=== PATIENT | female | born 1950 | race Caucasian/White ===

== ENCOUNTER 2017-07-14 10:02 | Inpatient (IN) | payer MEDICARE ==
[2017-07-14] MEDS ORDERED: NORMAL SALINE 1000 ML 1,000 ML IV ONE ×2 (10:23→13:33)
--- NOTE | 2017-07-14 10:25 | ER Document Report ---
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 She thinks she is anemic again. According to EMS, her house is in disarray and looks like a hoarder's house. She says that she is unable to get around her house due to her chronic leg wounds. She noticed some increased drainage from the leg wounds. Patient denies fevers, increased drainage from her ear wound, nausea, vomiting, abdominal pain, chest pain, shortness of breath, urinary symptoms, GI bleeding or hematemesis. TRAVEL OUTSIDE OF THE [place] IN LAST 30 DAYS: No - Related Data Allergies/Adverse Reactions: No Known Allergies Allergy (Verified 07/14/17 11:41) Past Medical History - General Information source: Patient - Social History Smoking Status: Unknown if Ever Smoked Family History: Hypertension - Past Medical History Cardiac Medical History: Reports: Hx Hypercholesterolemia, Hx Hypertension Past Surgical History: Reports: Hx Thyroid Surgery - Immunizations Hx Diphtheria, Pertussis, Tetanus Vaccination: Yes Review of Systems - Review of Systems Notes: REVIEW OF SYSTEMS: CONSTITUTIONAL: -fevers, -chills EENT: -eye pain, -difficulty swallowing, -nasal congestion CARDIOVASCULAR:-chest pain, -syncope. RESPIRATORY: -cough, -SOB GASTROINTESTINAL: -abdominal pain, - nausea, -vomiting, -diarrhea GENITOURINARY: -dysuria, -hematuria MUSCULOSKELETAL: -back pain, -neck pain SKIN: +B/L leg ulcers, +chronic left ear wound HEMATOLOGIC: -easy bruising or bleeding. LYMPHATIC: -swollen, enlarged glands. NEUROLOGICAL: -altered mental status or loss of consciousness, -headache, - neurologic symptoms PSYCHIATRIC: -anxiety, -depression. ALL OTHER SYSTEMS REVIEWED AND NEGATIVE. Physical Exam - Vital signs Vitals: Temp Pulse Resp BP Pulse Ox 98.8 F 130 H 20 147/59 H 100 07/14/17 10:17 07/14/17 10:17 07/14/17 10:17 07/14/17 10:07/14/17 10:17 - Notes Notes: PHYSICAL EXAMINATION: GENERAL: No acute distress. Unkempt. EYES: Pupils equal round and reactive to light, extraocular movements intact, sclera anicteric, conjunctiva are normal. ENT: nares patent, oropharynx clear without exudates. Moist mucous membranes. Chronic left ear mass that appears fungating with a malodorous smell. NECK: Normal range of motion, supple without lymphadenopathy LUNGS: Breath sounds clear to auscultation bilaterally and equal. No wheezes rales or rhonchi. HEART: Tachycardia. ABDOMEN: Soft, nontender, normoactive bowel sounds. No guarding, no rebound. No masses appreciated. EXTREMITIES: Chronic wounds over bilateral lower legs with malodorous discharge from the wounds. NEUROLOGICAL: Cranial nerves grossly intact. Normal speech, normal gait. Normal sensory and motor exams. PSYCH: Normal mood, normal affect. Course - Re-evaluation Re-evalutation: Patient is anemic, tachycardic and tachypneic. She has known chronic anemia from iron deficiency and has no evidence of GI bleeding at this time. With 2 SIRS criteria and chronic leg wounds and chronic left war fungating mass that she has seen multiple specialists for, will begin broad-spectrum antibiotics and provide IV fluids. Cultures sent. Patient's blood pressure has been remaining normal and lactate is only 2.0. Her Hgb is 7.1 and she reamins tachycardic with generalized weakness. 1 unit of PRBCs was transfused due to symphtomatic anemia. Case management is involved in the case due to unsafe living conditions, according to EMS. Pt requires inpatient admission for further evaluation and treatment of her symptomatic anemia, sepsis and disposition for a safe living condition. 07/14/17 14:[address] Olmedo (Hospitalist) and she has accepted patient to Tele as Inpatient for further evaluation and treatment. Pt comfortable with plan. - Vital Signs Vital signs: Temp Pulse Resp BP Pulse Ox 98.8 F 130 H 22 H 122/54 L 98 07/14/17 10:17 07/14/17 10:17 07/14/17 13:01 07/14/17 13:01 07/14/17 13:01 - Laboratory Result Diagrams: 07/14/17 11:00 07/14/17 13:18 Laboratory results interpreted by me: 07/14/17 07/14/17 07/14/17 11:00 11:00 13:18 RBC 2.88 L Hgb 7.1 L Hct 21.5 L MCV 75 L MCH 24.6 L RDW 19.4 H Plt Count 469 H Seg Neutrophils % 88.5 H Lymphocytes % 6.6 L Absolute Neutrophils 8.9 H PT 15.8 H APTT 39.5 H VBG pH VBG pCO2 Potassium Carbon Dioxide Calcium Direct Bilirubin NT-Pro-B Natriuret Pep 1480 H Total Protein Albumin Crossmatch 07/14/17 07/14/17 07/14/17 13:18 13:18 13:18 RBC Hgb Hct MCV MCH RDW Plt Count Seg Neutrophils % Lymphocytes % Absolute Neutrophils PT APTT VBG pH 7.48 H VBG pCO2 30.1 L Potassium 3.4 L Carbon Dioxide 21 L Calcium 5.3 L* Direct Bilirubin 0.5 H NT-Pro-B Natriuret Pep Total Protein 5.8 L Albumin 2.6 L Crossmatch See Detail - Diagnostic Test Radiology reviewed: Image reviewed, Reports reviewed Radiology results interpreted by me: CXR: NAD - EKG Interpretation by Me EKG shows normal: Sinus rhythm, [place], Intervals, QRS Complexes, ST-T Waves Rate: Tachycardia Discharge - Discharge Clinical Impression: Symptomatic anemia, Chronic skin ulcer of lower leg Sepsis Qualifiers: Sepsis type: sepsis due to unspecified organism Qualified Code(s): A41.9 - Sepsis, unspecified organism Ear mass Qualifiers: Laterality: left Qualified Code(s): H93.8X2 - Other specified disorders of left ear Condition: Stable Disposition: ADMITTED INPATIENT Admitting Provider: Hospitalist - [facility] Admitted: Telemetry Referrals: ANETA BLAKE MD [Primary Care Provider] - Follow up as needed
--- NOTE | 2017-07-14 11:10 | RADIOLOGY REPORT (SQ) ---
EXAM DESCRIPTION: CHEST SINGLE VIEW COMPLETED DATE/TIME: 07/14/2017 10:59 am REASON FOR STUDY: weakness COMPARISON: 04/20/2015 EXAM PARAMETERS: NUMBER OF VIEWS: One view. TECHNIQUE: Single frontal radiographic view of the chest acquired. RADIATION DOSE: NA LIMITATIONS: None. FINDINGS: LUNGS AND PLEURA: No opacities, masses or pneumothorax. No pleural effusion. MEDIASTINUM AND HILAR STRUCTURES: No masses. Contour normal. HEART AND VASCULAR STRUCTURES: Heart normal in size. Normal vasculature. BONES: No acute findings. HARDWARE: None in the chest. OTHER: No other significant finding. IMPRESSION: NO ACUTE RADIOGRAPHIC FINDING IN THE CHEST. TECHNICAL DOCUMENTATION: JOB ID: [id number] [employer]- All Rights Reserved
[2017-07-14 11:23] LABS: ABSOLUTE BASOPHILS # (AUTO) 0.1 10^3/uL (0.0-0.2); ABSOLUTE EOSINOPHILS # (AUTO) 0.1 10^3/uL (0.0-0.6); ABSOLUTE LYMPHOCYTES (AUTO) 0.7 10^3/uL (0.5-4.7); ABSOLUTE MONOCYTES (AUTO) 0.4 10^3/uL (0.1-1.4); ABSOLUTE NEUT (AUTO) 8.9 10^3/uL (1.7-8.2); BASOPHILS % (AUTO) 0.7 % (0-2); EOSINOPHILS % (AUTO) 0.6 % (0-6); HEMATOCRIT 21.5 % (36.0-47.0); HGB HCT DIFFERENCE -0.2; LYMPHOCYTES % (AUTO) 6.6 % (13-45); MEAN CORPUSCULAR HEMOGLOBIN 24.6 pg (27.0-33.4); MEAN CORPUSCULAR HGB CONC 33.1 g/dL (32.0-36.0); MEAN CORPUSCULAR VOLUME 75 fl (80-97); MONOCYTES % (AUTO) 3.6 % (3-13); RED BLOOD COUNT 2.88 10^6/uL (3.72-5.28); RED CELL DISTRIBUTION WIDTH 19.4 % (11.5-14.0); SEGMENTED NEUTROPHILS % (AUTO) 88.5 % (42-78)
[2017-07-14 11:25] LABS: HEMOGLOBIN 7.1 g/dL (12.0-15.5)
[2017-07-14 11:30] LABS: PROTHROMBIN TIME 15.8 SEC (11.4-15.4)
[2017-07-14 11:31] LABS: PARTIAL THROMBOPLASTIN TIME 39.5 SEC (23.5-35.8)
[2017-07-14] MEDS ORDERED: NORMAL SALINE 250 ML IV PRN (11:43)
--- NOTE | 2017-07-14 13:32 | EKG REPORT ---
SEVERITY:- ABNORMAL ECG - SUPRAVENTRICULAR TACHYCARDIA ABNRM R PROG, CONSIDER ASMI OR LEAD PLACEMENT BORDERLINE PROLONGED QT INTERVAL : Confirmed by: Sylvester Lal MD 14-Jul-2017 13:32:19
[2017-07-14 13:40] LABS: VENOUS BLOOD BASE EXCESS -1.3 mmol/L; VENOUS BLOOD PCO2 30.1 mmHg (35-63); VENOUS BLOOD PH 7.48 (7.30-7.42)
[2017-07-14] MEDS ORDERED: VANCOMYCIN HCL INJ 1000 MG VIAL IV ONE (13:43)
[2017-07-14] MEDS ORDERED: PIPERACILLIN/TAZOBACTAM 3.375 GM VIAL IV ONE ×2 (13:44→14:44)
[2017-07-14 13:56] LABS: ALANINE AMINOTRANSFERASE 25 U/L (9-52); ALBUMIN 2.6 g/dL (3.5-5.0); ALKALINE PHOSPHATASE 103 U/L (38-126); ANION GAP 13 (5-19); ASPARTATE AMINO TRANSFERASE 14 U/L (14-36); BILIRUBIN,DIRECT 0.5 mg/dL (0.0-0.4); BLOOD UREA NITROGEN 12 mg/dL (7-20); CARBON DIOXIDE 21 mmol/L (22-30); CHLORIDE 104 mmol/L (98-107); CREATINE KINASE 126 U/L (30-135); CREATININE RESULT 0.79 mg/dL (0.52-1.25); GLUCOSE 90 mg/dL (75-110); LIPASE 121.9 U/L (23-300); POTASSIUM 3.4 mmol/L (3.6-5.0); TOTAL PROTEIN 5.8 g/dL (6.3-8.2)
[2017-07-14 14:09] LABS: TROPONIN I < 0.012 ng/mL
[2017-07-14 14:10] LABS: CALCIUM 5.3 mg/dL (8.4-10.2)
[2017-07-14] MEDS ORDERED: CALCIUM GLUCONATE 1000 MG/10 ML INJ IV ONE (14:13)
[2017-07-14] MEDS ORDERED: ACETAMINOPHEN 325 MG TABLET PO PRN (14:25)
[2017-07-14] MEDS ORDERED: ONDANSETRON HCL INJ/PF 4 MG/2 ML SDV IV PRN (14:25)
[2017-07-14] MEDS ORDERED: VANCOMYCIN HCL 0 MG in DEXTROSE 5%-WATER 250 ML IV NR (15:00)
[2017-07-14] MEDS ORDERED: VANCOMYCIN HCL INJ 1000 MG VIAL ONE (15:22)
[2017-07-14 15:30] LABS: AMORPHOUS SEDIMENT,URINE 4+ /HPF; APPEARANCE,URINE TURBID; BILIRUBIN,URINE NEGATIVE (NEGATIVE); GLUCOSE, URINE NEGATIVE (NEGATIVE); KETONES,URINE NEGATIVE (NEGATIVE); LEUKOCYTE ESTERASE,URINE TRACE (NEGATIVE); NITRITE,URINE NEGATIVE (NEGATIVE); PROTEIN,URINE 30 mg/dL (NEGATIVE)
[2017-07-14] MEDS ORDERED: IRON SUCROSE COMPLEX INJ/PF 100 MG/5 ML SDV IV SCH ×2 (16:00→18:00)
[2017-07-14] MEDS ORDERED: POTASSIUM CHLORIDE 10 MEQ TABLET.SA PO ONE (16:30)
[2017-07-14] MEDS ORDERED: NYSTATIN TOPICAL POWDER 15 GM TP SCH (18:00)
[2017-07-14] MEDS ORDERED: FERROUS SULFATE 325 MG TABLET PO SCH (18:00)
[2017-07-14] MEDS: CALCIUM ACETATE 667 MG CAPSULE PO SCH (18:57)
[2017-07-14] MEDS: CALCIUM CARBONATE 500 MG TABLET PO SCH (18:57)
[2017-07-14] MEDS: LANSOPRAZOLE 30 MG TAB.RAP.DR PO SCH (18:58)
[2017-07-14] MEDS: PIPERACILLIN SODIUM/TAZOBACTAM 3.375 GM in NORMAL SALINE 100 ML IV SCH (21:00)
[2017-07-14] MEDS: METOPROLOL TARTRATE 25 MG TABLET PO SCH (21:00)
[2017-07-15] MEDS: PIPERACILLIN SODIUM/TAZOBACTAM 3.375 GM in NORMAL SALINE 100 ML IV SCH ×2 (03:37→09:05)
[2017-07-15 04:52] LABS: ANION GAP 10 (5-19); BLOOD UREA NITROGEN 11 mg/dL (7-20); CARBON DIOXIDE 21 mmol/L (22-30); CHLORIDE 107 mmol/L (98-107); CREATININE RESULT 0.79 mg/dL (0.52-1.25); GLUCOSE 81 mg/dL (75-110); MAGNESIUM 1.5 mg/dL (1.6-2.3); PHOSPHORUS 3.4 mg/dL (2.5-4.5); POTASSIUM 3.3 mmol/L (3.6-5.0)
[2017-07-15 05:05] LABS: CALCIUM 5.6 mg/dL (8.4-10.2)
[2017-07-15 05:07] LABS: ABSOLUTE BASOPHILS # (AUTO) 0.1 10^3/uL (0.0-0.2); ABSOLUTE EOSINOPHILS # (AUTO) 0.2 10^3/uL (0.0-0.6); ABSOLUTE LYMPHOCYTES (AUTO) 0.7 10^3/uL (0.5-4.7); ABSOLUTE MONOCYTES (AUTO) 0.4 10^3/uL (0.1-1.4); ABSOLUTE NEUT (AUTO) 4.6 10^3/uL (1.7-8.2); EOSINOPHILS % (AUTO) 4.1 % (0-6); HEMATOCRIT 18.9 % (36.0-47.0); HGB HCT DIFFERENCE 0.3; MEAN CORPUSCULAR HEMOGLOBIN 25.4 pg (27.0-33.4); MEAN CORPUSCULAR HGB CONC 33.6 g/dL (32.0-36.0); MEAN CORPUSCULAR VOLUME 75 fl (80-97); MONOCYTES % (AUTO) 6.1 % (3-13); RED BLOOD COUNT 2.51 10^6/uL (3.72-5.28); RED CELL DISTRIBUTION WIDTH 18.7 % (11.5-14.0); SEGMENTED NEUTROPHILS % (AUTO) 76.8 % (42-78)
[2017-07-15 05:12] LABS: HEMOGLOBIN 6.4 g/dL (12.0-15.5)
[2017-07-15] MEDS ORDERED: NORMAL SALINE 250 ML IV PRN ×2 (05:14)
[2017-07-15] MEDS ORDERED: CALCIUM GLUCONATE 1000 MG/10 ML INJ IV ONE (05:14)
[2017-07-15] MEDS ORDERED: POTASSIUM CHLORIDE 10 MEQ TABLET.SA PO ONE (05:15)
[2017-07-15] MEDS ORDERED: CALCIUM GLUCONATE 1000 MG/10 ML INJ IV PRN (05:44)
[2017-07-15] MEDS ORDERED: CALCIUM GLUCONATE 2,000 MG in DEXTROSE 5%-WATER 100 ML IV ONE (05:45)
[2017-07-15] MEDS ORDERED: VANCOMYCIN HCL 1,250 MG in DEXTROSE 5%-WATER 250 ML IV SCH (06:00)
[2017-07-15] MEDS: LANSOPRAZOLE 30 MG TAB.RAP.DR PO SCH ×2 (06:04→17:43)
[2017-07-15] MEDS: MAGNESIUM SULFATE/D5W 1 GM/100 ML RTUPB IV SCH ×2 (06:12→07:29)
[2017-07-15] MEDS: CALCIUM ACETATE 667 MG CAPSULE PO SCH ×3 (09:07→17:43)
[2017-07-15] MEDS: CALCIUM CARBONATE 500 MG TABLET PO SCH ×3 (09:07→17:43)
[2017-07-15] MEDS ORDERED: LEVOTHYROXINE SODIUM 150 MCG PO SCH (10:00)
[2017-07-15] MEDS ORDERED: CALCIUM CARBONATE 500 MG TAB.CHEW PO SCH (10:00)
[2017-07-15] MEDS ORDERED: AMMONIUM LACTATE 12% LOTION 225GM BOTTLE TP ONE (11:30)
[2017-07-15] MEDS ORDERED: SILVER SULFADIAZINE 1% CREAM 25 GM TP ONE (11:30)
[2017-07-15] MEDS: CALCITRIOL 0.25 MCG CAPSULE PO SCH (12:51)
[2017-07-15] MEDS: METOPROLOL TARTRATE 25 MG TABLET PO SCH ×2 (12:52→22:32)
--- NOTE | 2017-07-15 15:36 | RADIOLOGY REPORT (SQ) ---
EXAM DESCRIPTION: PICC INSERTION; U/S GUIDE FOR VASCULAR ACCESS; FLUORO/CV PLACEMENT COMPLETED DATE/TIME: 07/15/2017 3:13 pm REASON FOR STUDY: no access; NO IV ACCESS COMPARISON: None. FLUOROSCOPY TIME: 27 seconds. 1 images saved to PACS. TECHNIQUE: Fluoroscopic and ultrasound guided PICC placement. LIMITATIONS: None. PROCEDURE: After written consent and assessment were obtained, the patient was brought into the fluo roscopy room and place supine on the table. Ultrasound was used on the patient's right arm for PICC access. The right arm was prepped and draped in a sterile fashion along with the ultrasound probe. Th e entry site was anesthetized with 1% lidocaine. A 21 gauge 7 cm needle was advanced through the skin and into the basilic vein under live ultrasound guidance. An ultrasound image was saved to PACS con firming access site. A .018 guide wire was then inserted through the needle and into the venous syst em. The needle was the removed and an 11 blade scalpel was used to make a 1cm skin incision. A 5 fr peel-away sheath was advanced over the wire and into the venous system. A measurement was then made u sing the existing wire and live fluoroscopic guidance. The wire was then removed and the trimmed. The PICC was advanced through the peel-away sheath and into the venous system. The peel-away sheath was removed and the catheter was adhered to the patients arm with a stat lock. The catheter was then aspi rated and flushed and a sterile bandage was placed over the access site. A fluoroscopic spot image w as saved to PACS confirming the catheter tip within the superior vena cava. IMPRESSION: SUCCESSFUL PLACEMENT OF A 5 FR DUAL LUMEN 44 CM PICC IN THE RIGHT BASILIC VEIN. COMMENT: Patient medication list reviewed: Yes- Quality ID# [id number]:Eligible professional attests to doc umenting in the medical record they obtained, updated, or reviewed the patient's current medications. . Quality ID 145: Final reports for procedures using fluoroscopy that document radiation exposure dipti lisy, or exposure time and number of fluorographic images (if radiation exposure indices are not avail able) Quality ID #76: The patient was prepped and draped using maximum sterile barrier technique including cap, mask, sterile gown, sterile gloves, a large sterile sheet, hand hygiene, and 2% Chlorhexidine fo r cutaneous antisepsis. When ultrasound is used, sterile ultrasound techniques are followed requiring sterile gel and sterile probes. TECHNICAL DOCUMENTATION: JOB ID: [id number] [employer]- All Rights Reserved
[2017-07-15] MEDS: CLINDAMYCIN 900 MG/D5W RTU 50 ML IV SCH ×2 (15:59→22:32)
--- NOTE | 2017-07-15 20:07 | Physician Advisory Note ---
Physician Advisor ProgressNote .: [facility], I have reviewed the medical record for this patient. Physician Advisor Statement: This patient does not meet SIRS criteria, given no leukocytosis or fever: HR & RR alone are insufficient, since they can go up with many different things. She also does not meet Sepsis-3 criteria, and does not sound, from notes so far , like she was sufficiently sick to indicate sepsis. Attending, please document, if you agree: 1. "Chronic Fe deficiency anemia due to chronic blood loss from ear mass" (or ....) 2. H&P within 24 hours of admission. Thanks! CK
[2017-07-15] MEDS: AMMONIUM LACTATE 12% LOTION 225GM BOTTLE TP SCH (22:32)
[2017-07-15] MEDS: NORMAL SALINE 10 ML SDV (SCHEDULED) IV SCH (22:32)
--- NOTE | 2017-07-15 23:05 | PDOC CONSULTATION ---
Consultation Consult Date: 07/15/17 Consult reason:: Ulcer right heel History of Present Illness Admission Date/PCP: 07/14/17 14:43 ANETA HESTERINGER History of Present Illness: SCOOBY BLAKE is a 66 year old female With ulcer along the right heel that the patient claims has been there for at least 6 weeks she has chronic swelling of both lower legs likely due to lymphedema. She had total thyroidectomy for cancer in 1962 followed by right neck dissection. She claims her calcium has been low ever since and takes calcium preparation. She also has chronic anemia She denies any significant pains along the right heel. 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 and neck dissection Social History Smoking Status: Never Smoker Frequency of Alcohol Use: None Hx Recreational Drug Use: No Hx Prescription Drug Abuse: No Family History Family History: Hypertension Parental Family History Reviewed: Yes - Mother has history of diabetes Children Family History Reviewed: No Sibling(s) Family History Reviewed.: Yes - Sister has diabetes Medication/Allergy Home Medications: Amlodipine Besylate [Norvasc 5 mg Tablet] 5 mg PO DAILY 07/14/17 Calcitriol [Rocaltrol 0.25 mcg Capsule] 0.25 mcg PO DAILY 07/14/17 Calcium Carbonate/Vitamin D3 [Calcium 500-Vit D3 200 Tablet] 3 tab PO DAILY Carvedilol [Coreg 12.5 mg Tablet] 12.5 mg PO Q12 07/14/17 Ferrous Sulfate [Feosol 325 mg Tablet] 325 mg PO BID 07/14/17 Levothyroxine Sodium [Synthroid] 137 mcg PO DAILY 07/14/17 Losartan/Hydrochlorothiazide [Losartan-Hctz 50-12.5 mg Tab] 1 tab PO DAILY 07/14 Allergies/Adverse Reactions: No Known Allergies Allergy (Verified 07/14/17 11:41) Review of Systems Constitutional: PRESENT: weakness Eyes: PRESENT: other - No visual disturbance Ears: PRESENT: other - fungating mass on the left ear Nose, Mouth, and Throat: PRESENT: other - No sore throat Cardiovascular: PRESENT: other - No chest pain Respiratory: PRESENT: other - No cough Gastrointestinal: PRESENT: other - No nausea or vomiting Genitourinary: PRESENT: other - No dysuria Musculoskeletal: PRESENT: other - Swelling of both lower legs right worse than the left Integumentary: PRESENT: wounds - Right heel ulcer, other Neurological: PRESENT: weakness Endocrine: PRESENT: other - No polyuria nor polydipsia Physical Exam Vital Signs: Temp Pulse Resp BP Pulse Ox 98.0 F 89 16 119/52 L 100 07/15/17 19:59 07/15/17 19:59 07/15/17 19:59 07/15/17 19:59 07/15/17 19:59 Intake & Output 07/14/17 07/15/17 07/16/17 06:59 06:59 06:59 Intake Total 1220 1812 Output Total 600 200 Balance 620 1612 Weight 105.6 kg General appearance: PRESENT: no acute distress Head exam: PRESENT: atraumatic Eye exam: PRESENT: conjunctiva pale Ear exam: PRESENT: other - There is a fungating mass in the left ear Mouth exam: PRESENT: moist, tongue midline Neck exam: PRESENT: other - Trachea midline. Operative scar for thyroidectomy and right neck dissection Respiratory exam: PRESENT: clear to auscultation lilia Cardiovascular exam: PRESENT: RRR Pulses: PRESENT: normal radial pulses Vascular exam: PRESENT: normal capillary refill GI/Abdominal exam: PRESENT: soft - Nontender Rectal exam: PRESENT: deferred Extremities exam: PRESENT: other - Has severe right leg lymphedema with a skin that is thickened and cracked. There is a 10 x 10 cm ulcer along the right heel with the bone of the calcaneus that is exposed. Both feet are swollen with the right worse than the left. Less lymphedema on the left lower leg Musculoskeletal exam: PRESENT: ambulatory Neurological exam: PRESENT: alert, oriented to person, oriented to place, oriented to time, oriented to situation Psychiatric exam: PRESENT: appropriate affect Skin exam: PRESENT: other - The skin on both lower legs below the knees are markedly thickened and cracked. There is a swelling of both lower legs right worse than the left. There is a 10 x 10 cm ulcer along the right heel with the bone exposed Results Laboratory Results: 07/15/17 04:06 07/15/17 04:06 07/15/17 07/15/17 07/15/17 04:06 04:06 04:06 WBC 6.0 RBC 2.51 L Hgb 6.4 L Hct 18.9 L MCV 75 L MCH 25.4 L MCHC 33.6 RDW 18.7 H Plt Count 361 Seg Neutrophils % 76.8 Lymphocytes % 12.0 L Monocytes % 6.1 Eosinophils % 4.1 Basophils % 1.0 Absolute Neutrophils 4.6 Absolute Lymphocytes 0.7 Absolute Monocytes 0.4 Absolute Eosinophils 0.2 Absolute Basophils 0.1 Sodium 138.0 Potassium 3.3 L Chloride 107 Carbon Dioxide 21 L Anion Gap 10 BUN 11 Creatinine 0.79 Est GFR ( Amer) > 60 Est GFR (Non-Af Amer) > 60 Glucose 81 Calcium 5.6 L* Ionized Calcium Jeannette 0.82 L Phosphorus 3.4 Magnesium 1.5 L Stool Occult Blood 07/15/17 09:56 WBC RBC Hgb Hct MCV MCH MCHC RDW Plt Count Seg Neutrophils % Lymphocytes % Monocytes % Eosinophils % Basophils % Absolute Neutrophils Absolute Lymphocytes Absolute Monocytes Absolute Eosinophils Absolute Basophils Sodium Potassium Chloride Carbon Dioxide Anion Gap BUN Creatinine Est GFR ( Amer) Est GFR (Non-Af Amer) Glucose Calcium Ionized Calcium Jeannette Phosphorus Magnesium Stool Occult Blood NEGATIVE Impressions: Chest X-Ray 07/14/17 10:22 IMPRESSION: NO ACUTE RADIOGRAPHIC FINDING IN THE CHEST. Guidance Fluoroscopy 07/15/17 00:00 IMPRESSION: SUCCESSFUL PLACEMENT OF A 5 FR DUAL LUMEN 44 CM PICC IN THE RIGHT BASILIC VEIN. Interventional Vascular Procedure 07/15/17 00:00 IMPRESSION: SUCCESSFUL PLACEMENT OF A 5 FR DUAL LUMEN 44 CM PICC IN THE RIGHT BASILIC VEIN. PICC Line Insertion 07/15/17 00:00 IMPRESSION: SUCCESSFUL PLACEMENT OF A 5 FR DUAL LUMEN 44 CM PICC IN THE RIGHT BASILIC VEIN. Assessment & Plan - Time Time Spent: 30 to 50 Minutes - Plan Summary Plan Summary: #1 obtain a regular x-ray of the right foot to rule out osteomyelitis of the right heel. 2. Continue with the topical ointment therapy for both lower legs with aluminum citrate 12 % 3. Obtain arterial and venous Doppler of both lower extremities 4. If there is osteomyelitis of the right calcaneus and then patient will need debridement of the bone then possible VAC therapy 5. Will need follow-up at the wound care center
[2017-07-16 00:49] LABS: ABSOLUTE BASOPHILS # (AUTO) 0.1 10^3/uL (0.0-0.2); ABSOLUTE EOSINOPHILS # (AUTO) 0.4 10^3/uL (0.0-0.6); ABSOLUTE LYMPHOCYTES (AUTO) 0.9 10^3/uL (0.5-4.7); ABSOLUTE MONOCYTES (AUTO) 0.4 10^3/uL (0.1-1.4); ABSOLUTE NEUT (AUTO) 5.3 10^3/uL (1.7-8.2); BASOPHILS % (AUTO) 1.1 % (0-2); HEMATOCRIT 23.9 % (36.0-47.0); HEMOGLOBIN 8.2 g/dL (12.0-15.5); HGB HCT DIFFERENCE 0.7; LYMPHOCYTES % (AUTO) 12.9 % (13-45); MEAN CORPUSCULAR HEMOGLOBIN 26.3 pg (27.0-33.4); MEAN CORPUSCULAR HGB CONC 34.2 g/dL (32.0-36.0); MEAN CORPUSCULAR VOLUME 77 fl (80-97); MONOCYTES % (AUTO) 6.3 % (3-13); RED BLOOD COUNT 3.12 10^6/uL (3.72-5.28); RED CELL DISTRIBUTION WIDTH 17.6 % (11.5-14.0); SEGMENTED NEUTROPHILS % (AUTO) 74.7 % (42-78); WHITE BLOOD COUNT 7.1 10^3/uL (4.0-10.5)
[2017-07-16] MEDS: LANSOPRAZOLE 30 MG TAB.RAP.DR PO SCH ×2 (06:13→16:50)
[2017-07-16] MEDS: CLINDAMYCIN 900 MG/D5W RTU 50 ML IV SCH ×3 (06:14→21:43)
--- NOTE | 2017-07-16 08:37 | PDOC PROGRESS REPORT ---
Subjective Progress Note for:: 07/16/17 Subjective:: Patient is a 66-year-old female living at home alone. Patient presenting after feeling weak patient found to be anemic. Patient does have a history of iron deficiency anemia. She also with wounds of the left ear and of the right heel. Patient states she is doing pretty good today she still feels weak. Reason For Visit: SYMPTOMATIC ANEMIA Physical Exam Vital Signs: Temperature 97.5 pulse 92 BP 115/54 RR 15 Sat 100%. General appearance: PRESENT: no acute distress, thin Head exam: PRESENT: normocephalic Eye exam: PRESENT: EOMI. ABSENT: scleral icterus Ear exam: PRESENT: other - Performed left ear with ingrown 4 x 4's Mouth exam: PRESENT: moist Neck exam: ABSENT: carotid bruit, JVD, lymphadenopathy, thyromegaly Respiratory exam: PRESENT: clear to auscultation lilia. ABSENT: rales, rhonchi, wheezes Cardiovascular exam: PRESENT: RRR. ABSENT: diastolic murmur, rubs, systolic murmur Pulses: PRESENT: normal dorsalis pedis pul Vascular exam: PRESENT: normal capillary refill GI/Abdominal exam: PRESENT: normal bowel sounds, soft. ABSENT: distended, guarding, mass, organolmegaly, rebound, tenderness Rectal exam: PRESENT: deferred Extremities exam: PRESENT: full ROM. ABSENT: calf tenderness, clubbing, pedal edema Neurological exam: PRESENT: alert, awake, oriented to person, oriented to place , oriented to time, oriented to situation, CN II-XII grossly intact. ABSENT: motor sensory deficit Psychiatric exam: PRESENT: appropriate affect, normal mood. ABSENT: homicidal ideation, suicidal ideation Skin exam: PRESENT: dry, intact, warm, other - Upper keratotic skin with ulceration especially on the right lower extremity and heel. Patient with yeast under her breasts and in the groin.. ABSENT: cyanosis, rash Results Impressions: Chest X-Ray 07/14/17 10:22 IMPRESSION: NO ACUTE RADIOGRAPHIC FINDING IN THE CHEST. Guidance Fluoroscopy 07/15/17 00:00 IMPRESSION: SUCCESSFUL PLACEMENT OF A 5 FR DUAL LUMEN 44 CM PICC IN THE RIGHT BASILIC VEIN. Interventional Vascular Procedure 07/15/17 00:00 IMPRESSION: SUCCESSFUL PLACEMENT OF A 5 FR DUAL LUMEN 44 CM PICC IN THE RIGHT BASILIC VEIN. PICC Line Insertion 07/15/17 00:00 IMPRESSION: SUCCESSFUL PLACEMENT OF A 5 FR DUAL LUMEN 44 CM PICC IN THE RIGHT BASILIC VEIN. Assessment & Plan - Diagnosis (1) Iron (Fe) deficiency anemia Qualifiers: Iron deficiency anemia type: other iron deficiency Qualified Code(s): D50.8 - Other iron deficiency anemias Is this a current diagnosis for this admission?: Yes Plan: Patient has no clear signs of bleeding. Hemoglobin 6.7. Patient transfused 2 units of packed RBCs. Will follow up hemoglobin. FOBT. (2) Tachycardia Is this a current diagnosis for this admission?: Yes Plan: Patient has history of sinus tachycardia but is possible worse due to the anemia. Tachycardia improved with beta-shaylee. (3) Chronic skin ulcer of lower leg Is this a current diagnosis for this admission?: Yes Plan: Patient has hyperkeratosis of the skin on her leg with some skin ulceration. Start patient on clindamycin and Diflucan. Ordered ammonia lactate to help remove the excess skin. (4) Ear mass Qualifiers: Laterality: left Qualified Code(s): H93.8X2 - Other specified disorders of left ear Plan: She has a left ear mass however this has not been tended to. When ENT is available will consult social found to have them evaluate the ear. Continue local wound care. (5) Laura infection of flexural skin Is this a current diagnosis for this admission?: Yes Plan: Patient on IV Diflucan. 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 Patient was given IV replacement. Receiving more IV supplementation. Patient is also on oral replacement. Please note that some of patient hypo-calcium is also due to her hypoalbuminemia. (7) Hypothyroidism Is this a current diagnosis for this admission?: Yes Plan: Continue Synthroid. (8) Hypokalemia Is this a current diagnosis for this admission?: Yes Plan: Is receiving IV replacement. From here on out will give patient oral replacements as patient has multiple infusions required. (9) Ulcer of right heel Is this a current diagnosis for this admission?: Yes Plan: She has a large right heel ulcer with maggots. Surgery consulted to evaluate the wound and give further recommendations. - Time Time Spent with patient: 15-24 minutes Anticipated discharge: SNF - Inpatient Certification Medical Necessity: Significant Comorbidiites Make Outpatient Treatment Too Risky , Need for IV Antibiotics
--- NOTE | 2017-07-16 08:38 | PDOC H&P ---
History of Present Illness Admission Date/PCP: 07/14/17 14:43 ANETA BLAKE History of Present Illness: SCOOBY BLAKE is a 66 year old female with a history of thyroid cancer status post thyroidectomy now on chronic thyroid, calcium replacement. Presenting after not feeling well for the last several days. Patient states she was weak and noted that she has a history of anemia and therefore felt that maybe her hemoglobin was low. She states that this has happened to her in the past. Patient says otherwise she has been eating well. Patient does have a growth on her left ear which she states is followed up at [facility]. When patient asked how to she care for it she says she looses soap and water and then she places gauze on it. Patient also states that her legs have been swelling and they have been painful. Patient states they are not any worse than usual. Patient does have a right heel ulcer. Patient denies using any walking device however she does lean up against the burks because she is so weak. Patient denies any fever chills at home. Patient denies any nausea vomiting or diarrhea. Patient denies any blood in her stools. There is concerned that patient home environment is not suitable. EMS apparently had very little room to enter the facility. In the ED patient was found to be tachycardic. He was found to have a hemoglobin of 7.1. Patient was transfused 1 unit. This was called to admit patient for further evaluation of her leg wounds and her anemia. 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 and neck dissection Social History Information Source: Patient Lives with: Alone Smoking Status: Never Smoker Frequency of Alcohol Use: None Hx Recreational Drug Use: No Hx Prescription Drug Abuse: No Family History Family History: DM, Other - prostate cancer Parental Family History Reviewed: No Children Family History Reviewed: No Sibling(s) Family History Reviewed.: No Medication/Allergy Home Medications: Amlodipine Besylate [Norvasc 5 mg Tablet] 5 mg PO DAILY 07/14/17 Calcitriol [Rocaltrol 0.25 mcg Capsule] 0.25 mcg PO DAILY 07/14/17 Calcium Carbonate/Vitamin D3 [Calcium 500-Vit D3 200 Tablet] 3 tab PO DAILY Carvedilol [Coreg 12.5 mg Tablet] 12.5 mg PO Q12 07/14/17 Ferrous Sulfate [Feosol 325 mg Tablet] 325 mg PO BID 07/14/17 Levothyroxine Sodium [Synthroid] 137 mcg PO DAILY 07/14/17 Losartan/Hydrochlorothiazide [Losartan-Hctz 50-12.5 mg Tab] 1 tab PO DAILY 07/14 Allergies/Adverse Reactions: No Known Allergies Allergy (Verified 07/14/17 11:41) Review of Systems Constitutional: ABSENT: chills, fever(s), headache(s), weight gain, weight loss Eyes: ABSENT: visual disturbances Ears: PRESENT: other - left ear wound. ABSENT: hearing changes Cardiovascular: PRESENT: edema, palpitations - Visit on the fifth floor no idania sedated the last was also included down in. ABSENT: chest pain, dyspnea on exertion, orthropnea Respiratory: ABSENT: cough, hemoptysis Gastrointestinal: ABSENT: abdominal pain, constipation, diarrhea, hematemesis, hematochezia, nausea, vomiting Genitourinary: ABSENT: dysuria, hematuria Musculoskeletal: ABSENT: joint swelling Integumentary: ABSENT: rash, wounds Neurological: ABSENT: abnormal gait, abnormal speech, confusion, dizziness, focal weakness, syncope Psychiatric: ABSENT: anxiety, depression, homidical ideation, suicidal ideation Endocrine: ABSENT: cold intolerance, heat intolerance, polydipsia, polyuria Hematologic/Lymphatic: ABSENT: easy bleeding, easy bruising Physical Exam Vital Signs: Temp: 984 HR 129 BP 123/40 Pulse 18 Pulse 100 General appearance: PRESENT: no acute distress, disheveled - odorous, well- developed, well-nourished Head exam: PRESENT: normocephalic Eye exam: PRESENT: EOMI. ABSENT: scleral icterus Ear exam: PRESENT: other - deformed left ear with growth and maggots in the wound Mouth exam: PRESENT: moist, tongue midline Neck exam: ABSENT: carotid bruit, JVD, lymphadenopathy, thyromegaly Respiratory exam: PRESENT: clear to auscultation lilia. ABSENT: rales, rhonchi, wheezes Cardiovascular exam: PRESENT: RRR. ABSENT: diastolic murmur, rubs, systolic murmur Pulses: PRESENT: normal dorsalis pedis pul Vascular exam: PRESENT: normal capillary refill GI/Abdominal exam: PRESENT: normal bowel sounds, soft. ABSENT: distended, guarding, mass, organolmegaly, rebound, tenderness Rectal exam: PRESENT: deferred Extremities exam: PRESENT: full ROM. ABSENT: calf tenderness, clubbing, pedal edema Neurological exam: PRESENT: alert, awake, oriented to person, oriented to place , oriented to time, oriented to situation, CN II-XII grossly intact. ABSENT: motor sensory deficit Psychiatric exam: PRESENT: appropriate affect, normal mood. ABSENT: homicidal ideation, suicidal ideation Skin exam: PRESENT: dry, warm, other - hyperkaratosis of the skin on both left with large right heel wound with maggots.. ABSENT: cyanosis, rash Results Laboratory Results: 07/16/17 00:30 07/15/17 04:06 07/15/17 07/16/17 09:56 00:30 WBC 7.1 RBC 3.12 L Hgb 8.2 L Hct 23.9 L MCV 77 L MCH 26.3 L MCHC 34.2 RDW 17.6 H Plt Count 344 Seg Neutrophils % 74.7 Lymphocytes % 12.9 L Monocytes % 6.3 Eosinophils % 5.0 Basophils % 1.1 Absolute Neutrophils 5.3 Absolute Lymphocytes 0.9 Absolute Monocytes 0.4 Absolute Eosinophils 0.4 Absolute Basophils 0.1 Stool Occult Blood NEGATIVE Impressions: Chest X-Ray 07/14/17 10:22 IMPRESSION: NO ACUTE RADIOGRAPHIC FINDING IN THE CHEST. Guidance Fluoroscopy 07/15/17 00:00 IMPRESSION: SUCCESSFUL PLACEMENT OF A 5 FR DUAL LUMEN 44 CM PICC IN THE RIGHT BASILIC VEIN. Interventional Vascular Procedure 07/15/17 00:00 IMPRESSION: SUCCESSFUL PLACEMENT OF A 5 FR DUAL LUMEN 44 CM PICC IN THE RIGHT BASILIC VEIN. PICC Line Insertion 07/15/17 00:00 IMPRESSION: SUCCESSFUL PLACEMENT OF A 5 FR DUAL LUMEN 44 CM PICC IN THE RIGHT BASILIC VEIN. Assessment & Plan - Diagnosis (1) Iron (Fe) deficiency anemia Qualifiers: Iron deficiency anemia type: other iron deficiency Qualified Code(s): D50.8 - Other iron deficiency anemias Is this a current diagnosis for this admission?: Yes Plan: Patient has no clear signs of bleeding. Patient transfused 1 units of PRBC but may need more. Will repeat CBC in the morning. Will start patient on iron supplement. (2) Tachycardia Is this a current diagnosis for this admission?: Yes Plan: Patient has history of sinus tachycardia but is possible worse due to the anemia. Will transfuse patient and restart patient on beta shaylee. (3) Chronic skin ulcer of lower leg Is this a current diagnosis for this admission?: Yes Plan: Patient has hyperkeratosis of the skin on her leg with some skin ulceration. Patient also has a right heel foot wound that patient need surgical attention. Patient was given vancomycin and Zosyn in the ED. Will continue with that for now. (4) Ear mass Qualifiers: Laterality: left Qualified Code(s): H93.8X2 - Other specified disorders of left ear Plan: She has a left ear mass however this has not been tended to. When ENT is available will consult social found to have them evaluate the ear. Attempt to clean the ear and apply dressings in the meanwhile. (5) Laura infection of flexural skin Is this a current diagnosis for this admission?: Yes Plan: Patient normally applies nystatin powder. The patient may require Diflucan as her skin folds are extensively affected. 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 Patient was given IV replacement. Will follow up her calcium and ionized calcium in the a.m. (7) Hypothyroidism Is this a current diagnosis for this admission?: Yes Plan: Continue Synthroid. Will check TSH and T4 to make sure patient is receiving adequate supplement. - Time Time Spent: 30 to 50 Minutes Anticipated discharge: SNF - Inpatient Certification Medical Necessity: Significant Comorbidiites Make Outpatient Treatment Too Risky - She has extensive foot and ear wound that needs attention and may require possible surgery., Need for IV Antibiotics
[2017-07-16] MEDS: CALCIUM CARBONATE 500 MG TABLET PO SCH (08:47)
[2017-07-16] MEDS: CALCIUM ACETATE 667 MG CAPSULE PO SCH (08:47)
[2017-07-16 09:03] LABS: VITAMIN D 25-HYDROXY 20.9 ng/mL (30.0-100.0)
--- NOTE | 2017-07-16 09:17 | RADIOLOGY REPORT (SQ) ---
EXAM DESCRIPTION: FOOT RIGHT COMPLETE COMPLETED DATE/TIME: 07/16/2017 8:35 am REASON FOR STUDY: r/o OSTEOMYELITIS COMPARISON: None. NUMBER OF VIEWS: Three views. TECHNIQUE: AP, lateral and oblique radiographic images acquired of the right foot. LIMITATIONS: None. FINDINGS: MINERALIZATION: Normal. BONES: There is bony erosion and demineralization along the surface of the calcaneus deep to a soft t issue ulcer, worrisome for osteomyelitis. No acute fracture or malalignment. JOINTS: No effusions. SOFT TISSUES: Plantar calcaneal ulcer with air, about 4 cm diameter. No radiopaque foreign body. Di ffuse hyperkeratosis. OTHER: No other significant finding. IMPRESSION: Plantar calcaneal ulcer with demineralization left plantar calcaneus worrisome for osteo myelitis. TECHNICAL DOCUMENTATION: JOB ID: [id number] [employer]- All Rights Reserved
[2017-07-16] MEDS ORDERED: SILVER SULFADIAZINE 1% CREAM 25 GM TP SCH (10:00)
[2017-07-16] MEDS ORDERED: LEVOTHYROXINE SODIUM 0.15 MG TABLET PO ONE (10:30)
[2017-07-16] MEDS ORDERED: ONDANSETRON HCL INJ/PF 4 MG/2 ML SDV IV PRN (10:30)
[2017-07-16] MEDS: METOPROLOL TARTRATE 25 MG TABLET PO SCH ×2 (10:33→21:42)
[2017-07-16] MEDS: CALCITRIOL 0.25 MCG CAPSULE PO SCH (10:34)
[2017-07-16] MEDS: AMMONIUM LACTATE 12% LOTION 225GM BOTTLE TP SCH ×2 (10:34→21:42)
[2017-07-16] MEDS: SILVER SULFADIAZINE 1% CREAM 25 GM TP SCH (10:34)
[2017-07-16] MEDS: FLUCONAZOLE 200 MG/NS RTU 100 ML IV SCH (10:35)
[2017-07-16] MEDS: NORMAL SALINE 10 ML SDV (SCHEDULED) IV SCH ×2 (10:36→21:42)
[2017-07-16] MEDS ORDERED: LEVOTHYROXINE SODIUM 0.025 MG TABLET PO ONE (11:30)
[2017-07-16 11:55] LABS: ANION GAP 10 (5-19); BLOOD UREA NITROGEN 8 mg/dL (7-20); CARBON DIOXIDE 22 mmol/L (22-30); CHLORIDE 107 mmol/L (98-107); GLUCOSE 99 mg/dL (75-110); MAGNESIUM 1.9 mg/dL (1.6-2.3); SODIUM 138.8 mmol/L (137-145)
[2017-07-16 11:57] LABS: POTASSIUM 3.8 mmol/L (3.6-5.0)
[2017-07-16] MEDS ORDERED: LEVOTHYROXINE SODIUM 0.112 MG TABLET PO ONE (12:00)
[2017-07-16 12:10] LABS: CALCIUM 6.3 mg/dL (8.4-10.2)
[2017-07-16] MEDS: FERROUS SULFATE 325 MG TABLET PO SCH ×2 (12:15→16:50)
[2017-07-16 12:25] LABS: THYROID STIMULATING HORMONE 53.1 uIU/mL (0.47-4.68)
[2017-07-16 15:07] LABS: VITAMIN D 1,25 DIHYDROXY 7.9 pg/mL (19.9-79.3)
[2017-07-16] MEDS ORDERED: CALCIUM CHLORIDE 10% PF/INJ 1000 MG/10 ML SDV IV ONE (20:14)
[2017-07-16] MEDS ORDERED: DEXTROSE 50%-WATER 25 GM/50 ML DISP.SYRIN IV PRN ×2 (20:19)
[2017-07-16] MEDS ORDERED: DEXTROSE 40% GEL 15 GM TUBE PO PRN ×2 (20:19)
[2017-07-16] MEDS ORDERED: GLUCAGON,HUMAN RECOMB 1 MG INJ SUBCUT PRN (20:19)
--- NOTE | 2017-07-16 20:21 | PDOC PROGRESS REPORT ---
Subjective Progress Note for:: 07/16/17 Subjective:: Patient is a 66-year-old female living at home alone. Patient presenting after feeling weak patient found to be anemic. Patient does have a history of iron deficiency anemia. She also with wounds of the left ear and of the right heel. Patient states the weakness is going away. Patient refuses to have her left ear evaluated by ENT. Reason For Visit: SYMPTOMATIC ANEMIA Physical Exam Vital Signs: Temp Pulse Resp BP Pulse Ox 98.4 F 80 16 115/47 L 99 07/16/17 16:08 07/16/17 16:08 07/16/17 16:08 07/16/17 16:08 07/16/17 16:08 Intake & Output 07/15/17 07/16/17 07/17/17 06:59 06:59 06:59 Intake Total 1220 3962 1083 Output Total 600 700 800 Balance 620 3262 283 Weight 105.6 kg 105.6 kg General appearance: PRESENT: no acute distress, obese Head exam: PRESENT: normocephalic Eye exam: PRESENT: EOMI. ABSENT: scleral icterus Ear exam: PRESENT: other - left ear mass Mouth exam: PRESENT: moist Neck exam: ABSENT: carotid bruit, JVD, lymphadenopathy, thyromegaly Respiratory exam: PRESENT: clear to auscultation lilia. ABSENT: rales, rhonchi, wheezes Cardiovascular exam: PRESENT: RRR. ABSENT: diastolic murmur, rubs, systolic murmur Pulses: PRESENT: normal dorsalis pedis pul Vascular exam: PRESENT: normal capillary refill GI/Abdominal exam: PRESENT: normal bowel sounds, soft. ABSENT: distended, guarding, mass, organolmegaly, rebound, tenderness Rectal exam: PRESENT: deferred Extremities exam: PRESENT: full ROM. ABSENT: calf tenderness, clubbing, pedal edema Neurological exam: PRESENT: alert, awake, oriented to person, oriented to place , oriented to time, oriented to situation, CN II-XII grossly intact. ABSENT: motor sensory deficit Psychiatric exam: PRESENT: appropriate affect, normal mood. ABSENT: homicidal ideation, suicidal ideation Skin exam: PRESENT: dry, intact, warm, other - bilateral leg dressing. ABSENT: cyanosis, rash Results Laboratory Results: 07/16/17 00:30 07/16/17 10:50 07/16/17 07/16/1707/16/17 00:30 10:50 10:50 WBC 7.1 RBC 3.12 L Hgb 8.2 L Hct 23.9 L MCV 77 L MCH 26.3 L MCHC 34.2 RDW 17.6 H Plt Count 344 Seg Neutrophils % 74.7 Lymphocytes % 12.9 L Monocytes % 6.3 Eosinophils % 5.0 Basophils % 1.1 Absolute Neutrophils 5.3 Absolute Lymphocytes 0.9 Absolute Monocytes 0.4 Absolute Eosinophils 0.4 Absolute Basophils 0.1 Sodium 138.8 Potassium 3.8 Chloride 107 Carbon Dioxide 22 Anion Gap 10 BUN 8 Creatinine 0.80 Est GFR ( Amer) > 60 Est GFR (Non-Af Amer) > 60 Glucose 99 Calcium 6.3 L* Magnesium 1.9 TSH 53.10 H Free T4 0.51 L Impressions: Chest X-Ray 07/14/17 10:22 IMPRESSION: NO ACUTE RADIOGRAPHIC FINDING IN THE CHEST. Foot X-Ray 07/15/17 00:00 IMPRESSION: Plantar calcaneal ulcer with demineralization left plantar calcaneus worrisome for osteomyelitis. Guidance Fluoroscopy 07/15/17 00:00 IMPRESSION: SUCCESSFUL PLACEMENT OF A 5 FR DUAL LUMEN 44 CM PICC IN THE RIGHT BASILIC VEIN. Interventional Vascular Procedure 07/15/17 00:00 IMPRESSION: SUCCESSFUL PLACEMENT OF A 5 FR DUAL LUMEN 44 CM PICC IN THE RIGHT BASILIC VEIN. PICC Line Insertion 07/15/17 00:00 IMPRESSION: SUCCESSFUL PLACEMENT OF A 5 FR DUAL LUMEN 44 CM PICC IN THE RIGHT BASILIC VEIN. Assessment & Plan - Diagnosis (1) Iron (Fe) deficiency anemia Qualifiers: Iron deficiency anemia type: other iron deficiency Qualified Code(s): D50.8 - Other iron deficiency anemias Is this a current diagnosis for this admission?: Yes Plan: Patient has no clear signs of bleeding. Patient tranfused at total of 3 units of PRCs. Hemoglobin stable. FOBT negative. (2) Tachycardia Is this a current diagnosis for this admission?: Yes Plan: Resolved. (3) Chronic skin ulcer of lower leg Is this a current diagnosis for this admission?: Yes Plan: Patient has hyperkeratosis of the skin on her leg with some skin ulceration. Patient also has a right heel foot wound that patient need surgical attention. Patient now on clindamycin and diflucan. Patient legs being dressing with ammonia lactate twice a day. (4) Ear mass Qualifiers: Laterality: left Qualified Code(s): H93.8X2 - Other specified disorders of left ear Plan: She has a left ear mass however this has not been tended to. ENT would like to evaluate patient and debride the area in the OR; however patient is currently refusing any further treatment to that area. (5) Laura infection of flexural skin Is this a current diagnosis for this admission?: Yes Plan: Patient currently on IV diflucan. Continue to keep skin clean and dry. 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 Patient was given IV replacement. Calcium improved but still requires replacement. Patient on oral replacement. Will give more IV calcium. (7) Hypothyroidism Is this a current diagnosis for this admission?: Yes Plan: Continue Synthroid. Patient T4 is low despite being on replacement. May have to adjust patient dose. (8) Hypokalemia Is this a current diagnosis for this admission?: Yes (9) Ulcer of right heel Is this a current diagnosis for this admission?: Yes Plan: Patient XR is consistent with osteo. Will consult ortho for further evaluation. (10) Vitamin D deficiency Is this a current diagnosis for this admission?: Yes Plan: Continue supplimentation. - Time Time Spent with patient: Less than 15 minutes Anticipated discharge: SNF - Inpatient Certification Medical Necessity: Significant Comorbidiites Make Outpatient Treatment Too Risky - Patient home situation will need to be evaluated prior to discharge., Need for IV Antibiotics, Need for Surgery
[2017-07-16] MEDS ORDERED: CALCIUM GLUCONATE 1000 MG/10 ML INJ IV ONE (22:00)
[2017-07-16] MEDS ORDERED: CALCIUM GLUCONATE 1,000 MG in DEXTROSE 5%-WATER 50 ML IV ONE (22:00)
--- NOTE | 2017-07-17 02:41 | PDOC PROGRESS REPORT ---
Subjective Progress Note for:: 07/16/17 Subjective:: mild pains right foot Reason For Visit: SYMPTOMATIC ANEMIA Physical Exam Vital Signs: Temp Pulse Resp BP Pulse Ox 98.4 F 82 16 115/47 L 99 07/16/17 16:08 07/16/17 19:00 07/16/17 16:08 07/16/17 16:08 07/16/17 16:08 Intake & Output 07/15/17 07/16/17 07/17/17 06:59 06:59 06:59 Intake Total 1220 3962 1323 Output Total 085 549 4174 Balance 620 3262 223 Weight 105.6 kg 105.6 kg General appearance: PRESENT: no acute distress Exam: right foot still with a large ulcer on heel side with calcaneal bone exposed. XRay right foot compatible with osteomyelitis. Patient hesitant to have something done on right foot. Suggested consulting Ortho for mx of osteomyelitis right calcaneal bone. Results Laboratory Results: 07/16/17 00:30 07/16/17 10:50 07/16/17 07/16/17 10:50 10:50 Sodium 138.8 Potassium 3.8 Chloride 107 Carbon Dioxide 22 Anion Gap 10 BUN 8 Creatinine 0.80 Est GFR ( Amer) > 60 Est GFR (Non-Af Amer) > 60 Glucose 99 Calcium 6.3 L* Magnesium 1.9 TSH 53.10 H Free T4 0.51 L Impressions: Chest X-Ray 07/14/17 10:22 IMPRESSION: NO ACUTE RADIOGRAPHIC FINDING IN THE CHEST. Foot X-Ray 07/15/17 00:00 IMPRESSION: Plantar calcaneal ulcer with demineralization left plantar calcaneus worrisome for osteomyelitis. Guidance Fluoroscopy 07/15/17 00:00 IMPRESSION: SUCCESSFUL PLACEMENT OF A 5 FR DUAL LUMEN 44 CM PICC IN THE RIGHT BASILIC VEIN. Interventional Vascular Procedure 07/15/17 00:00 IMPRESSION: SUCCESSFUL PLACEMENT OF A 5 FR DUAL LUMEN 44 CM PICC IN THE RIGHT BASILIC VEIN. PICC Line Insertion 07/15/17 00:00
[2017-07-17] MEDS: CLINDAMYCIN 900 MG/D5W RTU 50 ML IV SCH ×3 (05:26→22:56)
[2017-07-17] MEDS: LEVOTHYROXINE SODIUM 0.112 MG TABLET PO SCH (05:26)
[2017-07-17] MEDS: LEVOTHYROXINE SODIUM 0.025 MG TABLET PO SCH (05:27)
[2017-07-17] MEDS: LANSOPRAZOLE 30 MG TAB.RAP.DR PO SCH ×2 (05:27→16:22)
[2017-07-17] MEDS ORDERED: LEVOTHYROXINE SODIUM 0.15 MG TABLET PO SCH ×2 (06:00)
[2017-07-17 06:23] LABS: ABSOLUTE BASOPHILS # (AUTO) 0.1 10^3/uL (0.0-0.2); ABSOLUTE EOSINOPHILS # (AUTO) 0.4 10^3/uL (0.0-0.6); ABSOLUTE MONOCYTES (AUTO) 0.4 10^3/uL (0.1-1.4); ABSOLUTE NEUT (AUTO) 3.6 10^3/uL (1.7-8.2); BASOPHILS % (AUTO) 1.2 % (0-2); EOSINOPHILS % (AUTO) 7.8 % (0-6); HEMATOCRIT 25.3 % (36.0-47.0); HEMOGLOBIN 8.4 g/dL (12.0-15.5); HGB HCT DIFFERENCE -0.1; LYMPHOCYTES % (AUTO) 18.8 % (13-45); MEAN CORPUSCULAR HEMOGLOBIN 25.6 pg (27.0-33.4); MEAN CORPUSCULAR HGB CONC 33.2 g/dL (32.0-36.0); MEAN CORPUSCULAR VOLUME 77 fl (80-97); MONOCYTES % (AUTO) 6.4 % (3-13); RED BLOOD COUNT 3.27 10^6/uL (3.72-5.28); RED CELL DISTRIBUTION WIDTH 18.3 % (11.5-14.0); SEGMENTED NEUTROPHILS % (AUTO) 65.8 % (42-78); WHITE BLOOD COUNT 5.5 10^3/uL (4.0-10.5)
[2017-07-17 07:32] LABS: ANION GAP 10 (5-19); BLOOD UREA NITROGEN 11 mg/dL (7-20); CARBON DIOXIDE 24 mmol/L (22-30); CHLORIDE 106 mmol/L (98-107); CREATININE RESULT 1.05 mg/dL (0.52-1.25); GLUCOSE 99 mg/dL (75-110); POTASSIUM 4.4 mmol/L (3.6-5.0); SODIUM 139.6 mmol/L (137-145)
[2017-07-17 07:46] LABS: CALCIUM 6.4 mg/dL (8.4-10.2)
[2017-07-17] MEDS: FERROUS SULFATE 325 MG TABLET PO SCH ×3 (08:48→16:22)
[2017-07-17] MEDS ORDERED: CALCIUM GLUCONATE 1000 MG/10 ML INJ IV ONE (09:00)
[2017-07-17] MEDS: NORMAL SALINE 10 ML SDV (SCHEDULED) IV SCH ×2 (09:57→22:56)
[2017-07-17] MEDS: FLUCONAZOLE 200 MG/NS RTU 100 ML IV SCH (09:58)
[2017-07-17] MEDS: CALCITRIOL 0.25 MCG CAPSULE PO SCH (09:58)
[2017-07-17] MEDS: CHOLECALCIFEROL (D3) 1,000 UNIT TABLET PO SCH (09:59)
[2017-07-17] MEDS: METOPROLOL TARTRATE 25 MG TABLET PO SCH ×2 (09:59→22:56)
[2017-07-17] MEDS ORDERED: VITAMIN D3 PO SCH (10:00)
[2017-07-17] MEDS ORDERED: CALCIUM CARBONATE PO SCH (10:00)
[2017-07-17] MEDS ORDERED: (PENDING PHARMACY ID) (Levothyroxine Sodium [Synthroid] 137 MCG) PO SCH (10:00)
[2017-07-17] MEDS ORDERED: [UNRECOGNIZED DRUG - OTHER] PO SCH (10:00)
[2017-07-17] MEDS: AMMONIUM LACTATE 12% LOTION 225GM BOTTLE TP SCH ×2 (10:07→22:56)
[2017-07-17] MEDS: SILVER SULFADIAZINE 1% CREAM 25 GM TP SCH (10:08)
[2017-07-17] MEDS: NORMAL SALINE 10 ML SDV (AFTER EACH USE) IV PRN ×2 (11:18→17:21)
--- NOTE | 2017-07-17 12:06 | PDOC PROGRESS REPORT ---
Subjective Progress Note for:: 07/17/17 Subjective:: Patient is a 66-year-old female living at home alone. Patient presenting after feeling weak patient found to be anemic. Patient does have a history of iron deficiency anemia. Patient feeling better. She states everyone is nice. Patient know that she may need surgery on her feet. Reason For Visit: SYMPTOMATIC ANEMIA Physical Exam Vital Signs: Temp Pulse Resp BP Pulse Ox 97.9 F 85 20 128/57 H 100 07/17/17 07:58 07/17/17 07:58 07/17/17 07:58 07/17/17 07:58 07/17/17 07:58 Intake & Output 07/16/17 07/17/17 07/18/17 06:59 06:59 06:59 Intake Total 3962 1953 Output Total 700 1600 Balance 3262 353 Weight 105.6 kg 105.6 kg General appearance: PRESENT: no acute distress, disheveled Head exam: PRESENT: atraumatic, normocephalic Eye exam: ABSENT: scleral icterus Ear exam: PRESENT: other - growth on left ear Mouth exam: PRESENT: moist Neck exam: ABSENT: carotid bruit, JVD, lymphadenopathy, thyromegaly Respiratory exam: PRESENT: clear to auscultation lilia. ABSENT: rales, rhonchi, wheezes Cardiovascular exam: PRESENT: RRR. ABSENT: diastolic murmur, rubs, systolic murmur GI/Abdominal exam: PRESENT: normal bowel sounds, soft. ABSENT: distended, guarding, mass, organolmegaly, rebound, tenderness Rectal exam: PRESENT: deferred Extremities exam: PRESENT: full ROM. ABSENT: calf tenderness, clubbing, pedal edema Neurological exam: PRESENT: alert, awake, oriented to person, oriented to place , oriented to time, oriented to situation, CN II-XII grossly intact. ABSENT: motor sensory deficit Psychiatric exam: PRESENT: appropriate affect, normal mood. ABSENT: homicidal ideation, suicidal ideation Skin exam: PRESENT: dry, intact, warm, other - hyperkaratotic skin on legs although better large ulcer on right heel with odor. ABSENT: cyanosis, rash Results Laboratory Results: 07/17/17 05:35 07/17/17 05:35 07/16/17 07/16/17 07/17/17 10:50 10:50 05:35 WBC 5.5 RBC 3.27 L Hgb 8.4 L Hct 25.3 L MCV 77 L MCH 25.6 L MCHC 33.2 RDW 18.3 H Plt Count 342 Seg Neutrophils % 65.8 Lymphocytes % 18.8 Monocytes % 6.4 Eosinophils % 7.8 H Basophils % 1.2 Absolute Neutrophils 3.6 Absolute Lymphocytes 1.0 Absolute Monocytes 0.4 Absolute Eosinophils 0.4 Absolute Basophils 0.1 Sodium 138.8 Potassium 3.8 Chloride 107 Carbon Dioxide 22 Anion Gap 10 BUN 8 Creatinine 0.80 Est GFR ( Amer) > 60 Est GFR (Non-Af Amer) > 60 Glucose 99 Calcium 6.3 L* Magnesium 1.9 TSH 53.10 H Free T4 0.51 L 07/17/17 05:35 WBC RBC Hgb Hct MCV MCH MCHC RDW Plt Count Seg Neutrophils % Lymphocytes % Monocytes % Eosinophils % Basophils % Absolute Neutrophils Absolute Lymphocytes Absolute Monocytes Absolute Eosinophils Absolute Basophils Sodium 139.6 Potassium 4.4 Chloride 106 Carbon Dioxide 24 Anion Gap 10 BUN 11 Creatinine 1.05 Est GFR ( Amer) > 60 Est GFR (Non-Af Amer) 52 L Glucose 99 Calcium 6.4 L* Magnesium TSH Free T4 Impressions: Chest X-Ray 07/14/17 10:22 IMPRESSION: NO ACUTE RADIOGRAPHIC FINDING IN THE CHEST. Foot X-Ray 07/15/17 00:00 IMPRESSION: Plantar calcaneal ulcer with demineralization left plantar calcaneus worrisome for osteomyelitis. Guidance Fluoroscopy 07/15/17 00:00 IMPRESSION: SUCCESSFUL PLACEMENT OF A 5 FR DUAL LUMEN 44 CM PICC IN THE RIGHT BASILIC VEIN. Interventional Vascular Procedure 07/15/17 00:00 IMPRESSION: SUCCESSFUL PLACEMENT OF A 5 FR DUAL LUMEN 44 CM PICC IN THE RIGHT BASILIC VEIN. PICC Line Insertion 07/15/17 00:00 IMPRESSION: SUCCESSFUL PLACEMENT OF A 5 FR DUAL LUMEN 44 CM PICC IN THE RIGHT BASILIC VEIN. Assessment & Plan - Diagnosis (1) Iron (Fe) deficiency anemia Qualifiers: Iron deficiency anemia type: other iron deficiency Qualified Code(s): D50.8 - Other iron deficiency anemias Is this a current diagnosis for this admission?: Yes Plan: Patient has no clear signs of bleeding. Patient tranfused at total of 3 units of PRCs. Hemoglobin stable. FOBT negative. Patient currently on oral iron. (2) Tachycardia Is this a current diagnosis for this admission?: Yes Plan: Resolved. Continue metoprolol. (3) Chronic skin ulcer of lower leg Is this a current diagnosis for this admission?: Yes Plan: Patient has hyperkeratosis of the skin on her leg with some skin ulceration. Patient now on clindamycin and diflucan. Patient legs being dressing with ammonia lactate twice a day. The legs are looking better. (4) Ear mass Qualifiers: Laterality: left Qualified Code(s): H93.8X2 - Other specified disorders of left ear Plan: She has a left ear mass however this has not been tended to. ENT would like to evaluate patient and debride the area in the OR; however patient is currently refusing any further treatment to that area. (5) Laura infection of flexural skin Is this a current diagnosis for this admission?: Yes Plan: Patient currently on IV diflucan. Continue to keep skin clean and dry. 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 Patient was given IV replacement. Calcium improved but still requires replacement. Patient on oral replacement. Will give more IV calcium. Corrected calcium in 7.5. Will follow up. (7) Hypothyroidism Is this a current diagnosis for this admission?: Yes Plan: Continue Synthroid. Patient T4 is low despite being on replacement. May have to adjust patient dose. (8) Hypokalemia Is this a current diagnosis for this admission?: Yes Plan: Resolved. (9) Ulcer of right heel Is this a current diagnosis for this admission?: Yes Plan: Patient XRay is consistent with osteo. Ortho consulted for further evaluation. 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 (10) Vitamin D deficiency Is this a current diagnosis for this admission?: Yes Plan: Continue suppliment. - Time Time Spent with patient: Less than 15 minutes Anticipated discharge: SNF - Inpatient Certification Medical Necessity: Need for Surgery - Patient home situation needs to be evaluated before discharge home. These is so self neglect. Patient may also need psychology evaluation.
--- NOTE | 2017-07-17 13:39 | PDOC PROGRESS REPORT ---
Subjective Progress Note for:: 07/17/17 Subjective:: Patient has no complaints at this time Reason For Visit: SYMPTOMATIC ANEMIA Physical Exam Vital Signs: Temp Pulse Resp BP Pulse Ox 97.8 F 84 16 126/61 H 100 07/17/17 11:39 07/17/17 11:39 07/17/17 11:39 07/17/17 11:39 07/17/17 12:00 Intake & Output 07/16/17 07/17/17 07/18/17 06:59 06:59 06:59 Intake Total 3962 1953 Output Total 700 1600 Balance 3262 353 Weight 105.6 kg 105.6 kg General appearance: PRESENT: no acute distress - 5 x 5 cm right heel decubitus ulcer, has a healthy granulation tissue base, without exudate or necrosis. Results Laboratory Results: 07/17/17 05:35 07/17/17 05:35 07/17/17 07/17/17 05:35 05:35 WBC 5.5 RBC 3.27 L Hgb 8.4 L Hct 25.3 L MCV 77 L MCH 25.6 L MCHC 33.2 RDW 18.3 H Plt Count 342 Seg Neutrophils % 65.8 Lymphocytes % 18.8 Monocytes % 6.4 Eosinophils % 7.8 H Basophils % 1.2 Absolute Neutrophils 3.6 Absolute Lymphocytes 1.0 Absolute Monocytes 0.4 Absolute Eosinophils 0.4 Absolute Basophils 0.1 Sodium 139.6 Potassium 4.4 Chloride 106 Carbon Dioxide 24 Anion Gap 10 BUN 11 Creatinine 1.05 Est GFR ( Amer) > 60 Est GFR (Non-Af Amer) 52 L Glucose 99 Calcium 6.4 L* Impressions: Chest X-Ray 07/14/17 10:22 IMPRESSION: NO ACUTE RADIOGRAPHIC FINDING IN THE CHEST. Foot X-Ray 07/15/17 00:00 IMPRESSION: Plantar calcaneal ulcer with demineralization left plantar calcaneus worrisome for osteomyelitis. Guidance Fluoroscopy 07/15/17 00:00 IMPRESSION: SUCCESSFUL PLACEMENT OF A 5 FR DUAL LUMEN 44 CM PICC IN THE RIGHT BASILIC VEIN. Interventional Vascular Procedure 07/15/17 00:00 IMPRESSION: SUCCESSFUL PLACEMENT OF A 5 FR DUAL LUMEN 44 CM PICC IN THE RIGHT BASILIC VEIN. PICC Line Insertion 07/15/17 00:00 IMPRESSION: SUCCESSFUL PLACEMENT OF A 5 FR DUAL LUMEN 44 CM PICC IN THE RIGHT BASILIC VEIN. Assessment & Plan - Diagnosis (1) Chronic skin ulcer of lower leg Is this a current diagnosis for this admission?: Yes - Plan Summary Plan Summary: Patient is scheduled to have a wound VAC placed on her right foot.
[2017-07-17] MEDS: LACTOBACILLUS ACIDOPHILUS 250 MG TAB PO SCH (17:20)
[2017-07-18] MEDS: LANSOPRAZOLE 30 MG TAB.RAP.DR PO SCH ×2 (06:43→17:30)
[2017-07-18] MEDS: LEVOTHYROXINE SODIUM 0.112 MG TABLET PO SCH (06:43)
[2017-07-18] MEDS: LEVOTHYROXINE SODIUM 0.025 MG TABLET PO SCH (06:43)
[2017-07-18] MEDS: CLINDAMYCIN 900 MG/D5W RTU 50 ML IV SCH ×3 (06:44→21:25)
[2017-07-18 07:02] LABS: ABSOLUTE EOSINOPHILS # (AUTO) 0.3 10^3/uL (0.0-0.6); ABSOLUTE LYMPHOCYTES (AUTO) 0.9 10^3/uL (0.5-4.7); ABSOLUTE MONOCYTES (AUTO) 0.3 10^3/uL (0.1-1.4); ABSOLUTE NEUT (AUTO) 3.2 10^3/uL (1.7-8.2); BASOPHILS % (AUTO) 0.7 % (0-2); EOSINOPHILS % (AUTO) 7.1 % (0-6); HEMATOCRIT 26.9 % (36.0-47.0); HEMOGLOBIN 8.8 g/dL (12.0-15.5); HGB HCT DIFFERENCE -0.5; LYMPHOCYTES % (AUTO) 18.7 % (13-45); MEAN CORPUSCULAR HEMOGLOBIN 25.5 pg (27.0-33.4); MEAN CORPUSCULAR HGB CONC 32.7 g/dL (32.0-36.0); MEAN CORPUSCULAR VOLUME 78 fl (80-97); MONOCYTES % (AUTO) 5.9 % (3-13); RED BLOOD COUNT 3.45 10^6/uL (3.72-5.28); SEGMENTED NEUTROPHILS % (AUTO) 67.6 % (42-78); WHITE BLOOD COUNT 4.8 10^3/uL (4.0-10.5)
[2017-07-18 07:19] LABS: ANION GAP 11 (5-19); BLOOD UREA NITROGEN 12 mg/dL (7-20); CARBON DIOXIDE 25 mmol/L (22-30); CHLORIDE 107 mmol/L (98-107); CREATININE RESULT 0.84 mg/dL (0.52-1.25); GLUCOSE 81 mg/dL (75-110); POTASSIUM 4.2 mmol/L (3.6-5.0)
[2017-07-18 07:43] LABS: CALCIUM 5.9 mg/dL (8.4-10.2)
[2017-07-18] MEDS: METOPROLOL TARTRATE 25 MG TABLET PO SCH ×2 (09:49→21:24)
[2017-07-18] MEDS: LACTOBACILLUS ACIDOPHILUS 250 MG TAB PO SCH ×2 (09:50→17:30)
[2017-07-18] MEDS: FERROUS SULFATE 325 MG TABLET PO SCH ×3 (09:50→17:31)
[2017-07-18] MEDS: CHOLECALCIFEROL (D3) 1,000 UNIT TABLET PO SCH (09:51)
[2017-07-18] MEDS: SILVER SULFADIAZINE 1% CREAM 25 GM TP SCH (09:53)
[2017-07-18] MEDS: AMMONIUM LACTATE 12% LOTION 225GM BOTTLE TP SCH ×2 (09:53→21:26)
[2017-07-18] MEDS: NORMAL SALINE 10 ML SDV (SCHEDULED) IV SCH ×2 (09:54→21:24)
[2017-07-18] MEDS: CALCITRIOL 0.25 MCG CAPSULE PO SCH (09:58)
[2017-07-18] MEDS: FLUCONAZOLE 200 MG/NS RTU 100 ML IV SCH (10:15)
[2017-07-18] MEDS ORDERED: CALCIUM GLUCONATE 1000 MG/10 ML INJ IV PRN (18:51)
[2017-07-18] MEDS ORDERED: CALCIUM GLUCONATE 1,000 MG in DEXTROSE 5%-WATER 50 ML IV ONE (19:00)
[2017-07-18] MEDS: NORMAL SALINE 10 ML SDV (AFTER EACH USE) IV PRN (23:06)
[2017-07-19] MEDS: LEVOTHYROXINE SODIUM 0.112 MG TABLET PO SCH (06:07)
[2017-07-19] MEDS: LANSOPRAZOLE 30 MG TAB.RAP.DR PO SCH ×2 (06:07→17:10)
[2017-07-19] MEDS: LEVOTHYROXINE SODIUM 0.025 MG TABLET PO SCH (06:07)
[2017-07-19] MEDS: CLINDAMYCIN 900 MG/D5W RTU 50 ML IV SCH ×3 (06:07→23:19)
--- NOTE | 2017-07-19 08:33 | PDOC PROGRESS REPORT ---
Subjective Progress Note for:: 07/18/17 Subjective:: Patient is a 66-year-old female living at home alone. Patient presenting after feeling weak patient found to be anemic. Patient does have a history of iron deficiency anemia. Patient states that her legs look better and she is happy that they are taking care of them. Patient is agreeable to work with PT. Patient still does not want anything done with the growth on her left ear. Reason For Visit: SYMPTOMATIC ANEMIA Physical Exam Vital Signs: Temp Pulse Resp BP Pulse Ox 97.9 F 78 16 130/56 H 99 07/19/17 03:18 07/19/17 03:18 07/19/17 03:18 07/19/17 03:18 07/19/17 03:18 Intake & Output 07/18/17 07/19/17 07/20/17 06:59 06:59 06:59 Intake Total 1346 2488 Output Total 1100 1100 Balance 246 1388 Weight 105.6 kg 105.6 kg General appearance: PRESENT: no acute distress, obese, well-nourished Eye exam: ABSENT: scleral icterus Ear exam: PRESENT: other - growth on left ear Mouth exam: PRESENT: moist Neck exam: ABSENT: carotid bruit, JVD, lymphadenopathy, thyromegaly Respiratory exam: PRESENT: clear to auscultation lilia. ABSENT: rales, rhonchi, wheezes Cardiovascular exam: PRESENT: RRR. ABSENT: diastolic murmur, rubs, systolic murmur GI/Abdominal exam: PRESENT: normal bowel sounds, soft. ABSENT: distended, guarding, mass, organolmegaly, rebound, tenderness Rectal exam: PRESENT: deferred Extremities exam: PRESENT: full ROM. ABSENT: calf tenderness, clubbing, pedal edema Neurological exam: PRESENT: alert, awake, oriented to person, oriented to place , oriented to time, oriented to situation, CN II-XII grossly intact. ABSENT: motor sensory deficit Psychiatric exam: PRESENT: appropriate affect, normal mood. ABSENT: homicidal ideation, suicidal ideation Skin exam: PRESENT: dry, intact, warm, other - right heel wound with wond vac in place. Swelling erthyema and scaling of legs improved.. ABSENT: cyanosis, rash Results Laboratory Results: 07/18/17 06:40 07/18/17 06:40 Impressions: Chest X-Ray 07/14/17 10:22 IMPRESSION: NO ACUTE RADIOGRAPHIC FINDING IN THE CHEST. Foot X-Ray 07/15/17 00:00 IMPRESSION: Plantar calcaneal ulcer with demineralization left plantar calcaneus worrisome for osteomyelitis. Guidance Fluoroscopy 07/15/17 00:00 IMPRESSION: SUCCESSFUL PLACEMENT OF A 5 FR DUAL LUMEN 44 CM PICC IN THE RIGHT BASILIC VEIN. Interventional Vascular Procedure 07/15/17 00:00 IMPRESSION: SUCCESSFUL PLACEMENT OF A 5 FR DUAL LUMEN 44 CM PICC IN THE RIGHT BASILIC VEIN. PICC Line Insertion 07/15/17 00:00 IMPRESSION: SUCCESSFUL PLACEMENT OF A 5 FR DUAL LUMEN 44 CM PICC IN THE RIGHT BASILIC VEIN. Assessment & Plan - Diagnosis (1) Iron (Fe) deficiency anemia Qualifiers: Iron deficiency anemia type: other iron deficiency Qualified Code(s): D50.8 - Other iron deficiency anemias Is this a current diagnosis for this admission?: Yes Plan: Patient has no clear signs of bleeding. Patient tranfused at total of 3 units of PRCs. Hemoglobin stable. FOBT negative. Patient currently on oral iron. Hemoglobin trending up. (2) Tachycardia Is this a current diagnosis for this admission?: Yes Plan: Possible due to anemia. Resolved. Continue metoprolol. (3) Chronic skin ulcer of lower leg Is this a current diagnosis for this admission?: Yes Plan: Patient has hyperkeratosis of the skin on her leg with some skin ulceration. Patient now on clindamycin and diflucan. Patient legs being dressing with ammonia lactate twice a day. Skin exfoliating nicely. There is healthy skin underneath. (4) Ear mass Qualifiers: Laterality: left Qualified Code(s): H93.8X2 - Other specified disorders of left ear Plan: She has a left ear mass however this has not been tended to. ENT would like to evaluate patient and debride the area in the OR; however patient is currently refusing any further treatment to that area. Patient continue to refuse. (5) Laura infection of flexural skin Is this a current diagnosis for this admission?: Yes Plan: Patient currently on IV diflucan. Continue to keep skin clean and dry. 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 Patient was given IV replacement. Calcium improved but still requires replacement. Patient on oral replacement. Corrected calcium is 7.5. Will check ionized calcium. (7) Hypothyroidism Is this a current diagnosis for this admission?: Yes Plan: Continue Synthroid. Patient T4 is low despite being on replacement. Patient dose may need to be corrected. (8) Hypokalemia Is this a current diagnosis for this admission?: Yes Plan: Resolved. (9) Ulcer of right heel Is this a current diagnosis for this admission?: Yes Plan: Patient XRay is consistent with osteo. Ortho consulted for further evaluation. Patient currently has wound vac in place. (10) Vitamin D deficiency Is this a current diagnosis for this admission?: Yes Plan: Continue replacement. - Time Time Spent with patient: Less than 15 minutes Anticipated discharge: SNF - Inpatient Certification Medical Necessity: Need for IV Antibiotics, Other - Patient requiring placement. Patient unable to care for herself.
[2017-07-19] MEDS: CALCITRIOL 0.25 MCG CAPSULE PO SCH (09:48)
[2017-07-19] MEDS: METOPROLOL TARTRATE 25 MG TABLET PO SCH ×2 (09:49→23:19)
[2017-07-19] MEDS: CHOLECALCIFEROL (D3) 1,000 UNIT TABLET PO SCH (09:50)
[2017-07-19] MEDS: LACTOBACILLUS ACIDOPHILUS 250 MG TAB PO SCH ×2 (09:50→17:10)
[2017-07-19] MEDS: FERROUS SULFATE 325 MG TABLET PO SCH ×3 (09:50→17:09)
[2017-07-19] MEDS: NORMAL SALINE 10 ML SDV (SCHEDULED) IV SCH ×2 (09:50→23:19)
[2017-07-19] MEDS: SILVER SULFADIAZINE 1% CREAM 25 GM TP SCH (09:51)
[2017-07-19] MEDS: AMMONIUM LACTATE 12% LOTION 225GM BOTTLE TP SCH ×2 (09:51→23:20)
[2017-07-19] MEDS: FLUCONAZOLE 200 MG/NS RTU 100 ML IV SCH (11:14)
[2017-07-19 11:16] LABS: ANION GAP 9 (5-19); BLOOD UREA NITROGEN 16 mg/dL (7-20); CARBON DIOXIDE 26 mmol/L (22-30); CHLORIDE 104 mmol/L (98-107); CREATININE RESULT 0.87 mg/dL (0.52-1.25); GLUCOSE 129 mg/dL (75-110); POTASSIUM 3.9 mmol/L (3.6-5.0)
[2017-07-19 11:28] LABS: CALCIUM 6.2 mg/dL (8.4-10.2)
[2017-07-19] MEDS ORDERED: CALCIUM GLUCONATE 1,000 MG in DEXTROSE 5%-WATER 50 ML IV ONE (14:44)
--- NOTE | 2017-07-19 14:52 | PDOC PROGRESS REPORT ---
Subjective Progress Note for:: 07/19/17 Subjective:: Pt states that she is doing well. Pt states that she does not want anything done to the left side of her face. Reason For Visit: SYMPTOMATIC ANEMIA Physical Exam Vital Signs: Temp Pulse Resp BP Pulse Ox 97.9 F 85 18 125/58 L 100 07/19/17 11:38 07/19/17 11:38 07/19/17 11:38 07/19/17 11:38 07/19/17 11:38 Intake & Output 07/18/17 07/19/17 07/20/17 06:59 06:59 06:59 Intake Total 1346 2488 Output Total 1100 1100 Balance 246 1388 Weight 105.6 kg 105.6 kg General appearance: PRESENT: no acute distress, well-developed, other Head exam: PRESENT: other - Left side facial fugating facial mass Eye exam: PRESENT: conjunctiva pink, EOMI, PERRLA. ABSENT: scleral icterus Ear exam: PRESENT: normal external ear exam Mouth exam: PRESENT: moist, tongue midline Neck exam: ABSENT: carotid bruit, JVD, lymphadenopathy, thyromegaly Respiratory exam: PRESENT: clear to auscultation lilia. ABSENT: rales, rhonchi, wheezes Cardiovascular exam: PRESENT: RRR. ABSENT: diastolic murmur, rubs, systolic murmur Pulses: PRESENT: normal dorsalis pedis pul Vascular exam: PRESENT: normal capillary refill GI/Abdominal exam: PRESENT: normal bowel sounds, soft. ABSENT: distended, guarding, mass, organolmegaly, rebound, tenderness Rectal exam: PRESENT: deferred Extremities exam: PRESENT: full ROM. ABSENT: calf tenderness, clubbing, pedal edema Musculoskeletal exam: PRESENT: full ROM Neurological exam: PRESENT: alert, oriented to person, oriented to place, oriented to time, oriented to situation, CN II-XII grossly intact Psychiatric exam: PRESENT: appropriate affect, normal mood. ABSENT: homicidal ideation, suicidal ideation Skin exam: PRESENT: other - Lower exts with dressing in place. Results Laboratory Results: 07/18/17 06:40 07/19/17 09:50 07/19/17 07/19/17 07/19/17 08:30 09:50 13:50 Sodium 139.0 Potassium 3.9 Chloride 104 Carbon Dioxide 26 Anion Gap 9 BUN 16 Creatinine 0.87 Est GFR ( Amer) > 60 Est GFR (Non-Af Amer) > 60 Glucose 129 H Calcium 6.2 L* Ionized Calcium Jeannette 0.89 L Magnesium 1.7 Impressions: Chest X-Ray 07/14/17 10:22 IMPRESSION: NO ACUTE RADIOGRAPHIC FINDING IN THE CHEST. Foot X-Ray 07/15/17 00:00 IMPRESSION: Plantar calcaneal ulcer with demineralization left plantar calcaneus worrisome for osteomyelitis. Guidance Fluoroscopy 07/15/17 00:00 IMPRESSION: SUCCESSFUL PLACEMENT OF A 5 FR DUAL LUMEN 44 CM PICC IN THE RIGHT BASILIC VEIN. Interventional Vascular Procedure 07/15/17 00:00 IMPRESSION: SUCCESSFUL PLACEMENT OF A 5 FR DUAL LUMEN 44 CM PICC IN THE RIGHT BASILIC VEIN. PICC Line Insertion 07/15/17 00:00 IMPRESSION: SUCCESSFUL PLACEMENT OF A 5 FR DUAL LUMEN 44 CM PICC IN THE RIGHT BASILIC VEIN. Assessment & Plan - Diagnosis (1) Anemia Qualifiers: Anemia type: iron deficiency Is this a current diagnosis for this admission?: Yes Plan: S/P 3 units of PRBC: Will continue to monitor. (2) Chronic skin ulcer of lower leg Is this a current diagnosis for this admission?: Yes Plan: Will continue antibiotics and wound care. (3) Ear mass Qualifiers: Laterality: left Qualified Code(s): H93.8X2 - Other specified disorders of left ear Is this a current diagnosis for this admission?: Yes Plan: Will continue wound care. (4) Hypokalemia Is this a current diagnosis for this admission?: Yes Plan: Resolved. (5) Symptomatic anemia Is this a current diagnosis for this admission?: Yes Plan: S/p 3 units of PRBC: Will continue to monitor. (6) Hypocalcemia Is this a current diagnosis for this admission?: Yes Plan: Will give Calcium Gluconate. Will check Calcium in am. - Time Time Spent with patient: Less than 15 minutes
[2017-07-19] MEDS ORDERED: CALCIUM GLUCONATE 1000 MG/10 ML INJ IV ONE (16:00)
--- NOTE | 2017-07-19 18:30 | PDOC PROGRESS REPORT ---
Subjective Progress Note for:: 07/19/17 Subjective:: The patient is without complaints Reason For Visit: SYMPTOMATIC ANEMIA Physical Exam Vital Signs: Temp Pulse Resp BP Pulse Ox 97.7 F 75 18 128/58 H 100 07/19/17 16:05 07/19/17 16:05 07/19/17 16:05 07/19/17 16:05 07/19/17 16:05 Intake & Output 07/18/17 07/19/17 07/20/17 06:59 06:59 06:59 Intake Total 1346 2488 1251 Output Total 1100 1100 Balance 246 1388 1251 Weight 105.6 kg 105.6 kg Extremities exam: PRESENT: other - Wound VAC is in place on the right foot. Results Laboratory Results: 07/18/17 06:40 07/19/17 09:50 07/19/17 07/19/17 07/19/17 08:30 09:50 13:50 Sodium 139.0 Potassium 3.9 Chloride 104 Carbon Dioxide 26 Anion Gap 9 BUN 16 Creatinine 0.87 Est GFR ( Amer) > 60 Est GFR (Non-Af Amer) > 60 Glucose 129 H Calcium 6.2 L* Ionized Calcium Jeannette 0.89 L Magnesium 1.7 Impressions: Chest X-Ray 07/14/17 10:22 IMPRESSION: NO ACUTE RADIOGRAPHIC FINDING IN THE CHEST. Foot X-Ray 07/15/17 00:00 IMPRESSION: Plantar calcaneal ulcer with demineralization left plantar calcaneus worrisome for osteomyelitis. Guidance Fluoroscopy 07/15/17 00:00 IMPRESSION: SUCCESSFUL PLACEMENT OF A 5 FR DUAL LUMEN 44 CM PICC IN THE RIGHT BASILIC VEIN. Interventional Vascular Procedure 07/15/17 00:00 IMPRESSION: SUCCESSFUL PLACEMENT OF A 5 FR DUAL LUMEN 44 CM PICC IN THE RIGHT BASILIC VEIN. PICC Line Insertion 07/15/17 00:00 IMPRESSION: SUCCESSFUL PLACEMENT OF A 5 FR DUAL LUMEN 44 CM PICC IN THE RIGHT BASILIC VEIN. Assessment & Plan - Diagnosis (1) Chronic skin ulcer of lower leg Is this a current diagnosis for this admission?: Yes - Plan Summary Plan Summary: Continue present wound VAC therapy, antibiotics, etc.
[2017-07-19] MEDS ORDERED: AMMONIUM LACTATE 12% LOTION 225GM BOTTLE TP SCH (22:00)
[2017-07-20] MEDS: LANSOPRAZOLE 30 MG TAB.RAP.DR PO SCH ×2 (06:54→17:12)
[2017-07-20] MEDS: LEVOTHYROXINE SODIUM 0.025 MG TABLET PO SCH (06:54)
[2017-07-20] MEDS: LEVOTHYROXINE SODIUM 0.112 MG TABLET PO SCH (06:54)
[2017-07-20] MEDS: CLINDAMYCIN 900 MG/D5W RTU 50 ML IV SCH ×3 (06:54→23:33)
[2017-07-20 07:33] LABS: ABSOLUTE EOSINOPHILS # (AUTO) 0.2 10^3/uL (0.0-0.6); ABSOLUTE LYMPHOCYTES (AUTO) 0.9 10^3/uL (0.5-4.7); ABSOLUTE MONOCYTES (AUTO) 0.3 10^3/uL (0.1-1.4); ABSOLUTE NEUT (AUTO) 2.7 10^3/uL (1.7-8.2); BASOPHILS % (AUTO) 1.1 % (0-2); EOSINOPHILS % (AUTO) 5.4 % (0-6); HEMATOCRIT 27.1 % (36.0-47.0); HEMOGLOBIN 8.9 g/dL (12.0-15.5); HGB HCT DIFFERENCE -0.4; LYMPHOCYTES % (AUTO) 21.5 % (13-45); MEAN CORPUSCULAR HGB CONC 32.8 g/dL (32.0-36.0); MEAN CORPUSCULAR VOLUME 79 fl (80-97); MONOCYTES % (AUTO) 6.2 % (3-13); RED BLOOD COUNT 3.41 10^6/uL (3.72-5.28); RED CELL DISTRIBUTION WIDTH 19.4 % (11.5-14.0); SEGMENTED NEUTROPHILS % (AUTO) 65.8 % (42-78); WHITE BLOOD COUNT 4.2 10^3/uL (4.0-10.5)
[2017-07-20 07:34] LABS: ALANINE AMINOTRANSFERASE 26 U/L (9-52); ALBUMIN 2.5 g/dL (3.5-5.0); ALKALINE PHOSPHATASE 89 U/L (38-126); ANION GAP 9 (5-19); ASPARTATE AMINO TRANSFERASE 23 U/L (14-36); BILIRUBIN,DIRECT 0.3 mg/dL (0.0-0.4); BILIRUBIN,TOTAL 0.4 mg/dL (0.2-1.3); BLOOD UREA NITROGEN 16 mg/dL (7-20); CARBON DIOXIDE 27 mmol/L (22-30); CHLORIDE 105 mmol/L (98-107); GLUCOSE 85 mg/dL (75-110); POTASSIUM 3.9 mmol/L (3.6-5.0); SODIUM 140.6 mmol/L (137-145); TOTAL PROTEIN 5.5 g/dL (6.3-8.2)
[2017-07-20 08:00] LABS: CALCIUM 6.2 mg/dL (8.4-10.2)
--- NOTE | 2017-07-20 09:53 | EKG REPORT ---
SEVERITY:- ABNORMAL ECG - SINUS RHYTHM VENTRICULAR TRIGEMINY : Confirmed by: Noreen Javier 20-Jul-2017 09:53:02
[2017-07-20] MEDS: LACTOBACILLUS ACIDOPHILUS 250 MG TAB PO SCH ×2 (12:29→17:13)
[2017-07-20] MEDS: FERROUS SULFATE 325 MG TABLET PO SCH ×3 (12:30→17:12)
[2017-07-20] MEDS: METOPROLOL TARTRATE 25 MG TABLET PO SCH ×2 (12:30→23:30)
[2017-07-20] MEDS: CHOLECALCIFEROL (D3) 1,000 UNIT TABLET PO SCH (12:30)
[2017-07-20] MEDS: CALCITRIOL 0.25 MCG CAPSULE PO SCH (12:32)
[2017-07-20] MEDS: SILVER SULFADIAZINE 1% CREAM 25 GM TP SCH (12:33)
[2017-07-20] MEDS: AMMONIUM LACTATE 12% LOTION 225GM BOTTLE TP SCH ×2 (12:33→23:39)
[2017-07-20] MEDS: FLUCONAZOLE 200 MG/NS RTU 100 ML IV SCH (12:36)
[2017-07-20] MEDS: NORMAL SALINE 10 ML SDV (SCHEDULED) IV SCH ×2 (12:36→23:32)
--- NOTE | 2017-07-20 13:28 | PDOC PROGRESS REPORT ---
Subjective Progress Note for:: 07/20/17 Reason For Visit: SYMPTOMATIC ANEMIA No complaints today. Physical Exam Vital Signs: Temp Pulse Resp BP Pulse Ox 97.5 F 82 18 136/50 H 100 07/20/17 12:00 07/20/17 12:00 07/20/17 12:00 07/20/17 12:00 07/20/17 12:00 Intake & Output 07/19/17 07/20/17 07/21/17 06:59 06:59 06:59 Intake Total 2488 3031 Output Total 1100 2350 Balance 1388 681 Weight 105.6 kg 105.6 kg General appearance: PRESENT: no acute distress Musculoskeletal exam: PRESENT: other - Right leg wound VAC removed. This leg has got chronic skin, did hair, and turgor. A lot of this was washed up today at bedside. The heel wound is granulating beautifully and is pink, healthy. Results Laboratory Results: 07/20/17 07:00 07/20/17 07:00 07/19/17 07/20/17 07/20/17 13:50 07:00 07:00 WBC 4.2 RBC 3.41 L Hgb 8.9 L Hct 27.1 L MCV 79 L MCH 26.0 L MCHC 32.8 RDW 19.4 H Plt Count 299 Seg Neutrophils % 65.8 Lymphocytes % 21.5 Monocytes % 6.2 Eosinophils % 5.4 Basophils % 1.1 Absolute Neutrophils 2.7 Absolute Lymphocytes 0.9 Absolute Monocytes 0.3 Absolute Eosinophils 0.2 Absolute Basophils 0.0 Sodium 140.6 Potassium 3.9 Chloride 105 Carbon Dioxide 27 Anion Gap 9 BUN 16 Creatinine 0.90 Est GFR ( Amer) > 60 Est GFR (Non-Af Amer) > 60 Glucose 85 Calcium 6.2 L* Ionized Calcium Jeannette 0.89 L Magnesium Total Bilirubin 0.4 AST 23 ALT 26 Alkaline Phosphatase 89 Total Protein 5.5 L Albumin 2.5 L 07/20/17 07/20/17 07:00 07:00 WBC RBC Hgb Hct MCV MCH MCHC RDW Plt Count Seg Neutrophils % Lymphocytes % Monocytes % Eosinophils % Basophils % Absolute Neutrophils Absolute Lymphocytes Absolute Monocytes Absolute Eosinophils Absolute Basophils Sodium Potassium Chloride Carbon Dioxide Anion Gap BUN Creatinine Est GFR ( Amer) Est GFR (Non-Af Amer) Glucose Calcium Ionized Calcium Jeannette 0.82 L Magnesium 1.6 Total Bilirubin AST ALT Alkaline Phosphatase Total Protein Albumin Impressions: Chest X-Ray 07/14/17 10:22 IMPRESSION: NO ACUTE RADIOGRAPHIC FINDING IN THE CHEST. Foot X-Ray 07/15/17 00:00 IMPRESSION: Plantar calcaneal ulcer with demineralization left plantar calcaneus worrisome for osteomyelitis. Guidance Fluoroscopy 07/15/17 00:00 IMPRESSION: SUCCESSFUL PLACEMENT OF A 5 FR DUAL LUMEN 44 CM PICC IN THE RIGHT BASILIC VEIN. Interventional Vascular Procedure 07/15/17 00:00 IMPRESSION: SUCCESSFUL PLACEMENT OF A 5 FR DUAL LUMEN 44 CM PICC IN THE RIGHT BASILIC VEIN. PICC Line Insertion 07/15/17 00:00 IMPRESSION: SUCCESSFUL PLACEMENT OF A 5 FR DUAL LUMEN 44 CM PICC IN THE RIGHT BASILIC VEIN. Assessment & Plan - Diagnosis (1) Chronic skin ulcer of lower leg Is this a current diagnosis for this admission?: Yes Plan: Pression: Clinically improved right heel wound, with wound VAC therapy. Chronic edema both lower extremities, with cauliflower skin and this amounts of sloughing keratin and did hair. Name: Wash leg vigorously with soapy water today Replace wound VAC: Can likely be managed on an outpatient basis in the next 48 hours.
[2017-07-20] MEDS ORDERED: CALCIUM GLUCONATE 1,000 MG in DEXTROSE 5%-WATER 50 ML IV ONE (14:36)
--- NOTE | 2017-07-20 15:03 | PDOC PROGRESS REPORT ---
Subjective Progress Note for:: 07/20/17 Subjective:: Pt states that she is doing well. Nursing states that pt continue to have wound care which is going well. Reason For Visit: SYMPTOMATIC ANEMIA Physical Exam Vital Signs: Temp Pulse Resp BP Pulse Ox 97.5 F 82 18 136/50 H 100 07/20/17 12:00 07/20/17 12:00 07/20/17 12:00 07/20/17 12:00 07/20/17 12:00 Intake & Output 07/19/17 07/20/17 07/21/17 06:59 06:59 06:59 Intake Total 2488 3031 Output Total 1100 2350 Balance 1388 681 Weight 105.6 kg 105.6 kg General appearance: PRESENT: no acute distress, well-developed, well-nourished Head exam: PRESENT: other - Pt with dressing around head left side facial mass with dressing in place. Eye exam: PRESENT: conjunctiva pink, EOMI. ABSENT: scleral icterus Ear exam: PRESENT: normal external ear exam Mouth exam: PRESENT: moist, tongue midline Neck exam: ABSENT: carotid bruit, JVD, lymphadenopathy, thyromegaly Respiratory exam: PRESENT: clear to auscultation lilia. ABSENT: rales, rhonchi, wheezes Cardiovascular exam: PRESENT: RRR. ABSENT: diastolic murmur, rubs, systolic murmur Pulses: PRESENT: normal dorsalis pedis pul GI/Abdominal exam: PRESENT: normal bowel sounds, soft. ABSENT: distended, guarding, mass, organolmegaly, rebound, tenderness Rectal exam: PRESENT: deferred Extremities exam: PRESENT: full ROM. ABSENT: calf tenderness, clubbing, pedal edema Neurological exam: PRESENT: alert, altered, oriented to person Psychiatric exam: PRESENT: flat affect. ABSENT: homicidal ideation, suicidal ideation Skin exam: PRESENT: other - bilateral lower ext wounds with dressing in place. Pt with left side facial fugating mass. Results Laboratory Results: 07/20/17 07:00 07/20/17 07:00 07/20/17 07/20/17 07/20/17 07:00 07:00 07:00 WBC 4.2 RBC 3.41 L Hgb 8.9 L Hct 27.1 L MCV 79 L MCH 26.0 L MCHC 32.8 RDW 19.4 H Plt Count 299 Seg Neutrophils % 65.8 Lymphocytes % 21.5 Monocytes % 6.2 Eosinophils % 5.4 Basophils % 1.1 Absolute Neutrophils 2.7 Absolute Lymphocytes 0.9 Absolute Monocytes 0.3 Absolute Eosinophils 0.2 Absolute Basophils 0.0 Sodium 140.6 Potassium 3.9 Chloride 105 Carbon Dioxide 27 Anion Gap 9 BUN 16 Creatinine 0.90 Est GFR ( Amer) > 60 Est GFR (Non-Af Amer) > 60 Glucose 85 Calcium 6.2 L* Ionized Calcium Jeannette 0.82 L Magnesium Total Bilirubin 0.4 AST 23 ALT 26 Alkaline Phosphatase 89 Total Protein 5.5 L Albumin 2.5 L 07/20/17 07:00 WBC RBC Hgb Hct MCV MCH MCHC RDW Plt Count Seg Neutrophils % Lymphocytes % Monocytes % Eosinophils % Basophils % Absolute Neutrophils Absolute Lymphocytes Absolute Monocytes Absolute Eosinophils Absolute Basophils Sodium Potassium Chloride Carbon Dioxide Anion Gap BUN Creatinine Est GFR ( Amer) Est GFR (Non-Af Amer) Glucose Calcium Ionized Calcium Jeannette Magnesium 1.6 Total Bilirubin AST ALT Alkaline Phosphatase Total Protein Albumin Impressions: Chest X-Ray 07/14/17 10:22 IMPRESSION: NO ACUTE RADIOGRAPHIC FINDING IN THE CHEST. Foot X-Ray 07/15/17 00:00 IMPRESSION: Plantar calcaneal ulcer with demineralization left plantar calcaneus worrisome for osteomyelitis. Guidance Fluoroscopy 07/15/17 00:00 IMPRESSION: SUCCESSFUL PLACEMENT OF A 5 FR DUAL LUMEN 44 CM PICC IN THE RIGHT BASILIC VEIN. Interventional Vascular Procedure 07/15/17 00:00 IMPRESSION: SUCCESSFUL PLACEMENT OF A 5 FR DUAL LUMEN 44 CM PICC IN THE RIGHT BASILIC VEIN. PICC Line Insertion 07/15/17 00:00 IMPRESSION: SUCCESSFUL PLACEMENT OF A 5 FR DUAL LUMEN 44 CM PICC IN THE RIGHT BASILIC VEIN. Assessment & Plan - Diagnosis (1) Anemia Qualifiers: Anemia type: iron deficiency Is this a current diagnosis for this admission?: Yes Plan: S/P 3 units of PRBC: Will continue to monitor. (2) Chronic skin ulcer of lower leg Is this a current diagnosis for this admission?: Yes Plan: Will continue antibiotics and wound care. (3) Ear mass Qualifiers: Laterality: left Qualified Code(s): H93.8X2 - Other specified disorders of left ear Is this a current diagnosis for this admission?: Yes Plan: Will continue wound care. (4) Hypokalemia Is this a current diagnosis for this admission?: Yes Plan: Resolved. (5) Symptomatic anemia Is this a current diagnosis for this admission?: Yes Plan: S/p 3 units of PRBC: Will continue to monitor. (6) Hypocalcemia Is this a current diagnosis for this admission?: Yes Plan: Will give Calcium Gluconate again today and place on PO calcium. Will check calcium and ionized calcium. (7) Vitamin D deficiency Is this a current diagnosis for this admission?: Yes Plan: Will give 50,000 units Qweekly for 6 weeks and maintenance dose. - Time Time Spent with patient: 15-24 minutes - Pt will speak to television maintenance worker about advance directives.
[2017-07-20] MEDS ORDERED: CALCIUM GLUCONATE 1000 MG/10 ML INJ IV ONE (15:30)
[2017-07-20] MEDS ORDERED: ERGOCALCIFEROL (VITAMIN D2) 50000 UNIT (1.25 MG) CAPSULE PO ONE (16:00)
[2017-07-20] MEDS: MAGNESIUM SULFATE/D5W 1 GM/100 ML RTUPB IV SCH ×2 (17:12→20:35)
[2017-07-20] MEDS: CALCIUM CARBONATE 500 MG TABLET PO SCH (17:12)
[2017-07-21] MEDS: CLINDAMYCIN 900 MG/D5W RTU 50 ML IV SCH ×3 (05:41→21:26)
[2017-07-21] MEDS: LEVOTHYROXINE SODIUM 0.112 MG TABLET PO SCH (05:41)
[2017-07-21] MEDS: LANSOPRAZOLE 30 MG TAB.RAP.DR PO SCH (05:41)
[2017-07-21] MEDS: LEVOTHYROXINE SODIUM 0.025 MG TABLET PO SCH (05:42)
[2017-07-21 06:07] LABS: ABSOLUTE EOSINOPHILS # (AUTO) 0.2 10^3/uL (0.0-0.6); ABSOLUTE LYMPHOCYTES (AUTO) 0.8 10^3/uL (0.5-4.7); ABSOLUTE MONOCYTES (AUTO) 0.3 10^3/uL (0.1-1.4); ABSOLUTE NEUT (AUTO) 2.1 10^3/uL (1.7-8.2); BASOPHILS % (AUTO) 1.1 % (0-2); HEMATOCRIT 25.1 % (36.0-47.0); HEMOGLOBIN 8.1 g/dL (12.0-15.5); HGB HCT DIFFERENCE -0.8; LYMPHOCYTES % (AUTO) 23.6 % (13-45); MEAN CORPUSCULAR HEMOGLOBIN 25.7 pg (27.0-33.4); MEAN CORPUSCULAR HGB CONC 32.3 g/dL (32.0-36.0); MEAN CORPUSCULAR VOLUME 79 fl (80-97); MONOCYTES % (AUTO) 7.2 % (3-13); RED BLOOD COUNT 3.17 10^6/uL (3.72-5.28); RED CELL DISTRIBUTION WIDTH 20.1 % (11.5-14.0); SEGMENTED NEUTROPHILS % (AUTO) 61.1 % (42-78); WHITE BLOOD COUNT 3.5 10^3/uL (4.0-10.5)
[2017-07-21 06:13] LABS: ALANINE AMINOTRANSFERASE 31 U/L (9-52); ALBUMIN 2.3 g/dL (3.5-5.0); ALKALINE PHOSPHATASE 79 U/L (38-126); ANION GAP 9 (5-19); ASPARTATE AMINO TRANSFERASE 20 U/L (14-36); BILIRUBIN,DIRECT 0.4 mg/dL (0.0-0.4); BILIRUBIN,TOTAL 0.4 mg/dL (0.2-1.3); BLOOD UREA NITROGEN 15 mg/dL (7-20); CARBON DIOXIDE 25 mmol/L (22-30); CHLORIDE 108 mmol/L (98-107); CREATININE RESULT 0.82 mg/dL (0.52-1.25); GLUCOSE 79 mg/dL (75-110); POTASSIUM 3.7 mmol/L (3.6-5.0); SODIUM 141.8 mmol/L (137-145); TOTAL PROTEIN 5.3 g/dL (6.3-8.2)
[2017-07-21 06:24] LABS: CALCIUM 5.7 mg/dL (8.4-10.2)
[2017-07-21] MEDS ORDERED: CALCIUM GLUCONATE 1000 MG/10 ML INJ IV ONE ×2 (07:00→09:15)
[2017-07-21] MEDS: FERROUS SULFATE 325 MG TABLET PO SCH ×3 (08:02→17:32)
[2017-07-21] MEDS ORDERED: CALCIUM GLUCONATE 1,000 MG in DEXTROSE 5%-WATER 50 ML IV ONE (08:34)
[2017-07-21] MEDS: NORMAL SALINE 10 ML SDV (SCHEDULED) IV SCH ×2 (09:48→21:36)
[2017-07-21] MEDS: CALCIUM CARBONATE 500 MG TABLET PO SCH ×3 (09:49→17:32)
[2017-07-21] MEDS: LACTOBACILLUS ACIDOPHILUS 250 MG TAB PO SCH ×2 (09:49→17:32)
[2017-07-21] MEDS: METOPROLOL TARTRATE 25 MG TABLET PO SCH ×2 (09:50→21:27)
[2017-07-21] MEDS: SILVER SULFADIAZINE 1% CREAM 25 GM TP SCH (09:51)
[2017-07-21] MEDS: AMMONIUM LACTATE 12% LOTION 225GM BOTTLE TP SCH ×2 (09:51→21:35)
[2017-07-21] MEDS: CALCITRIOL 0.25 MCG CAPSULE PO SCH (09:51)
[2017-07-21] MEDS: FLUCONAZOLE 200 MG/NS RTU 100 ML IV SCH (09:55)
--- NOTE | 2017-07-21 13:03 | PDOC CONSULTATION ---
Consultation Consult Date: 07/21/17 Consult reason:: Right lower extremity plantar ulcer History of Present Illness Admission Date/PCP: 07/14/17 14:43 ANETA BLAKE History of Present Illness: The patient is a 66-year-old white female who was admitted for at least in part a right plantar foot ulcer. She reports approximately a 5 week history of right foot problems and having maintained at least a household ambulator status without assist devices prior to that time. Over the last 5 weeks she has had progressive issues with the right lower extremity. She is evaluated upon admission and found to have a 10 x 10 cm calcaneal ulcer that extended down to the underlying bone. This is being treated with a wound VAC and topical dressings to the more proximal lower leg skin changes. Orthopedics is presumably content consulted consulted for management of the plantar ulcer. 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 and neck dissection Social History Information Source: Patient, [facility] Records Lives with: Alone Smoking Status: Never Smoker Frequency of Alcohol Use: None Hx Recreational Drug Use: No Hx Prescription Drug Abuse: No Family History Family History: DM, Other - prostate cancer Parental Family History Reviewed: No Children Family History Reviewed: No Sibling(s) Family History Reviewed.: No Medication/Allergy Home Medications: Amlodipine Besylate [Norvasc 5 mg Tablet] 5 mg PO DAILY 07/14/17 Calcitriol [Rocaltrol 0.25 mcg Capsule] 0.25 mcg PO DAILY 07/14/17 Calcium Carbonate/Vitamin D3 [Calcium 500-Vit D3 200 Tablet] 3 tab PO DAILY Carvedilol [Coreg 12.5 mg Tablet] 12.5 mg PO Q12 07/14/17 Ferrous Sulfate [Feosol 325 mg Tablet] 325 mg PO BID 07/14/17 Levothyroxine Sodium [Synthroid] 137 mcg PO DAILY 07/14/17 Losartan/Hydrochlorothiazide [Losartan-Hctz 50-12.5 mg Tab] 1 tab PO DAILY 07/14 Allergies/Adverse Reactions: No Known Allergies Allergy (Verified 07/14/17 11:41) Review of Systems All systems: as per [facility] Physical Exam Vital Signs: Temp Pulse Resp BP Pulse Ox 36.4 C 79 18 137/70 H 100 07/21/17 08:00 07/21/17 08:00 07/21/17 08:00 07/21/17 08:00 07/21/17 08:00 Intake & Output 07/20/17 07/21/17 07/22/17 06:59 06:59 06:59 Intake Total 3031 3847 Output Total 2350 2050 Balance 681 1797 Weight 105.6 kg 115.1 kg Physical Exam: The patient is a middle-aged white female lying in hospital bed. There is a large bandage about her head and her left ear. Lower extremities are wrapped in Kerlix beginning in the proximal calf and extending distally. There is a wound VAC applied to the plantar surface of the right calcaneus. There is brisk capillary refill to each of the digits. Motor function to the great toe flexion extension is intact. General appearance: PRESENT: no acute distress Head exam: PRESENT: normocephalic Respiratory exam: PRESENT: unlabored Cardiovascular exam: PRESENT: RRR Pulses: PRESENT: +1 pedal pulses bilateral Vascular exam: PRESENT: normal capillary refill GI/Abdominal exam: PRESENT: soft Rectal exam: PRESENT: deferred Extremities exam: PRESENT: other - Wound VAC applied to the plantar surface of the right foot. Sponge measures approximately 10 x 10 cm. There is brisk capillary refill to each of the digits. Motor function to the great toe flexion extension is intact. Neurological exam: PRESENT: alert, awake, oriented to person, oriented to place , oriented to time, oriented to situation. ABSENT: motor sensory deficit Psychiatric exam: PRESENT: appropriate affect, normal mood. ABSENT: homicidal ideation, suicidal ideation Skin exam: PRESENT: dry, intact, warm. ABSENT: cyanosis, rash Results Laboratory Results: 07/21/17 05:00 07/21/17 05:00 07/21/17 07/21/17 07/21/17 05:00 05:00 05:00 WBC 3.5 L RBC 3.17 L Hgb 8.1 L Hct 25.1 L MCV 79 L MCH 25.7 L MCHC 32.3 RDW 20.1 H Plt Count 257 Seg Neutrophils % 61.1 Lymphocytes % 23.6 Monocytes % 7.2 Eosinophils % 7.0 H Basophils % 1.1 Absolute Neutrophils 2.1 Absolute Lymphocytes 0.8 Absolute Monocytes 0.3 Absolute Eosinophils 0.2 Absolute Basophils 0.0 Sodium 141.8 Potassium 3.7 Chloride 108 H Carbon Dioxide 25 Anion Gap 9 BUN 15 Creatinine 0.82 Est GFR ( Amer) > 60 Est GFR (Non-Af Amer) > 60 Glucose 79 Calcium 5.7 L* Ionized Calcium Jeannette Magnesium 1.7 Total Bilirubin 0.4 AST 20 ALT 31 Alkaline Phosphatase 79 Total Protein 5.3 L Albumin 2.3 L 07/21/17 05:15 WBC RBC Hgb Hct MCV MCH MCHC RDW Plt Count Seg Neutrophils % Lymphocytes % Monocytes % Eosinophils % Basophils % Absolute Neutrophils Absolute Lymphocytes Absolute Monocytes Absolute Eosinophils Absolute Basophils Sodium Potassium Chloride Carbon Dioxide Anion Gap BUN Creatinine Est GFR ( Amer) Est GFR (Non-Af Amer) Glucose Calcium Ionized Calcium Jeannette 0.88 L Magnesium Total Bilirubin AST ALT Alkaline Phosphatase Total Protein Albumin Impressions: Chest X-Ray 07/14/17 10:22 IMPRESSION: NO ACUTE RADIOGRAPHIC FINDING IN THE CHEST. Foot X-Ray 07/15/17 00:00 IMPRESSION: Plantar calcaneal ulcer with demineralization left plantar calcaneus worrisome for osteomyelitis. Guidance Fluoroscopy 07/15/17 00:00 IMPRESSION: SUCCESSFUL PLACEMENT OF A 5 FR DUAL LUMEN 44 CM PICC IN THE RIGHT BASILIC VEIN. Interventional Vascular Procedure 07/15/17 00:00 IMPRESSION: SUCCESSFUL PLACEMENT OF A 5 FR DUAL LUMEN 44 CM PICC IN THE RIGHT BASILIC VEIN. PICC Line Insertion 07/15/17 00:00 IMPRESSION: SUCCESSFUL PLACEMENT OF A 5 FR DUAL LUMEN 44 CM PICC IN THE RIGHT BASILIC VEIN. Status: Imported from PACS Assessment & Plan - Diagnosis (1) Ulcer of right heel Is this a current diagnosis for this admission?: Yes Plan: 66-year-old white female who was a household ambulator until recently now with a significant right calcaneal plantar ulcer as well as chronic skin changes that extend up to at least mid calf. The patient is in no acute distress at this point and has no evidence of sepsis. Treatment has been primarily focused on local pathology including the plantar ulcer with a wound VAC and with dressing changes to the more proximal chronic skin ulcers. I am somewhat pessimistic that the local control measures are going to solve the problem and I think the patient will ultimately come to a below-knee amputation. However there is no downside to continue current treatment until the patient is convinced that the wound will not heal. - Time Time Spent: 50 to 70 Minutes Anticipated discharge: SNF Within: Other - Plan Summary Plan Summary: Continue local wound management of bilateral lower extremities
[2017-07-21] MEDS ORDERED: PROMETHAZINE HCL 25 MG TABLET PO PRN (13:41)
--- NOTE | 2017-07-21 18:19 | PDOC PROGRESS REPORT ---
Subjective Progress Note for:: 07/21/17 Subjective:: The patient is resting in her bed. Overall she states that she is feeling fairly well but she is having some swelling in her right upper extremity. She denies fever chills. No chest pain, shortness of breath or heart palpitations. No nausea, vomiting or diarrhea. No dysuria, frequency or hematuria. Reason For Visit: SYMPTOMATIC ANEMIA Physical Exam Vital Signs: Temp Pulse Resp BP Pulse Ox 97.8 F 73 18 126/64 H 99 07/21/17 16:52 07/21/17 16:52 07/21/17 16:52 07/21/17 16:52 07/21/17 16:52 Intake & Output 07/20/17 07/21/17 07/22/17 06:59 06:59 06:59 Intake Total 3031 3847 1577 Output Total 2350 2050 Balance 681 1797 1577 Weight 105.6 kg 115.1 kg General appearance: PRESENT: no acute distress, well-developed, well-nourished Head exam: PRESENT: normocephalic, other - Left ear mass. She has a bandage in place that was not removed as of the time of this dictation. Eye exam: PRESENT: conjunctiva pink, EOMI, PERRLA. ABSENT: scleral icterus Ear exam: PRESENT: other - The patient has a bandage in place to her left ear. Her left ear mass was not examined today. We will try to go back when the nursing staff is changing the bandage. Mouth exam: PRESENT: moist, tongue midline Neck exam: ABSENT: carotid bruit, JVD, lymphadenopathy, thyromegaly Respiratory exam: PRESENT: clear to auscultation lilia. ABSENT: rales, rhonchi, wheezes Cardiovascular exam: PRESENT: RRR. ABSENT: diastolic murmur, rubs, systolic murmur GI/Abdominal exam: PRESENT: normal bowel sounds, soft. ABSENT: distended, guarding, mass, organolmegaly, rebound, tenderness Extremities exam: PRESENT: other - Significant venous stasis changes bilaterally. She has a right heel ulcer with wound VAC in place. Neurological exam: PRESENT: alert, awake, oriented to person, oriented to place , oriented to time, oriented to situation, CN II-XII grossly intact. ABSENT: motor sensory deficit Psychiatric exam: PRESENT: appropriate affect, normal mood. ABSENT: homicidal ideation, suicidal ideation Skin exam: PRESENT: other - Significant venous stasis changes bilaterally with a right heel ulcer. Also left ear mass. Results Laboratory Results: 07/21/17 05:00 07/21/17 05:00 07/21/17 07/21/17 07/21/17 05:00 05:00 05:00 WBC 3.5 L RBC 3.17 L Hgb 8.1 L Hct 25.1 L MCV 79 L MCH 25.7 L MCHC 32.3 RDW 20.1 H Plt Count 257 Seg Neutrophils % 61.1 Lymphocytes % 23.6 Monocytes % 7.2 Eosinophils % 7.0 H Basophils % 1.1 Absolute Neutrophils 2.1 Absolute Lymphocytes 0.8 Absolute Monocytes 0.3 Absolute Eosinophils 0.2 Absolute Basophils 0.0 Sodium 141.8 Potassium 3.7 Chloride 108 H Carbon Dioxide 25 Anion Gap 9 BUN 15 Creatinine 0.82 Est GFR ( Amer) > 60 Est GFR (Non-Af Amer) > 60 Glucose 79 Calcium 5.7 L* Ionized Calcium Jeannette Magnesium 1.7 Total Bilirubin 0.4 AST 20 ALT 31 Alkaline Phosphatase 79 Total Protein 5.3 L Albumin 2.3 L 07/21/17 05:15 WBC RBC Hgb Hct MCV MCH MCHC RDW Plt Count Seg Neutrophils % Lymphocytes % Monocytes % Eosinophils % Basophils % Absolute Neutrophils Absolute Lymphocytes Absolute Monocytes Absolute Eosinophils Absolute Basophils Sodium Potassium Chloride Carbon Dioxide Anion Gap BUN Creatinine Est GFR ( Amer) Est GFR (Non-Af Amer) Glucose Calcium Ionized Calcium Jeannette 0.88 L Magnesium Total Bilirubin AST ALT Alkaline Phosphatase Total Protein Albumin Impressions: Chest X-Ray 07/14/17 10:22 IMPRESSION: NO ACUTE RADIOGRAPHIC FINDING IN THE CHEST. Foot X-Ray 07/15/17 00:00 IMPRESSION: Plantar calcaneal ulcer with demineralization left plantar calcaneus worrisome for osteomyelitis. Guidance Fluoroscopy 07/15/17 00:00 IMPRESSION: SUCCESSFUL PLACEMENT OF A 5 FR DUAL LUMEN 44 CM PICC IN THE RIGHT BASILIC VEIN. Interventional Vascular Procedure 07/15/17 00:00 IMPRESSION: SUCCESSFUL PLACEMENT OF A 5 FR DUAL LUMEN 44 CM PICC IN THE RIGHT BASILIC VEIN. PICC Line Insertion 07/15/17 00:00 IMPRESSION: SUCCESSFUL PLACEMENT OF A 5 FR DUAL LUMEN 44 CM PICC IN THE RIGHT BASILIC VEIN. Assessment & Plan - Diagnosis (1) Ulcer of right heel Is this a current diagnosis for this admission?: Yes Plan: Orthopedic surgery has seen the patient. We certainly appreciate their input. She will continue with wound VAC in place. (2) Symptomatic anemia Is this a current diagnosis for this admission?: Yes Plan: She has an iron deficiency anemia. She has been transfused and currently her hemoglobin is stable. (3) Ear mass Qualifiers: Laterality: left Qualified Code(s): H93.8X2 - Other specified disorders of left ear Is this a current diagnosis for this admission?: Yes Plan: We will continue local wound care for now. I will figure out if the ENT has seen the patient or not. (4) Tachycardia Is this a current diagnosis for this admission?: Yes Plan: Likely due to severe anemia. Resolved (5) Laura infection of flexural skin Is this a current diagnosis for this admission?: Yes Plan: Continue nystatin powder (6) Hypocalcemia Is this a current diagnosis for this admission?: Yes Plan: She was given calcium gluconate this morning. We will recheck a chemistry panel in the morning. (8) Hypothyroidism Is this a current diagnosis for this admission?: Yes Plan: Continue Synthroid (9) Vitamin D deficiency Is this a current diagnosis for this admission?: Yes Plan: She has been started on 50,000 units a week. (10) Hypokalemia Is this a current diagnosis for this admission?: Yes Plan: Repleted (11) Hypomagnesemia Plan: Repleted
[2017-07-21] MEDS: PANTOPRAZOLE SODIUM 40 MG VIAL IV SCH (21:28)
[2017-07-22] MEDS: CLINDAMYCIN 900 MG/D5W RTU 50 ML IV SCH (05:48)
[2017-07-22] MEDS: LEVOTHYROXINE SODIUM 0.112 MG TABLET PO SCH (05:48)
[2017-07-22] MEDS: LEVOTHYROXINE SODIUM 0.025 MG TABLET PO SCH (05:49)
[2017-07-22 06:08] LABS: ABSOLUTE BASOPHILS # (AUTO) 0.1 10^3/uL (0.0-0.2); ABSOLUTE EOSINOPHILS # (AUTO) 0.3 10^3/uL (0.0-0.6); ABSOLUTE LYMPHOCYTES (AUTO) 0.9 10^3/uL (0.5-4.7); ABSOLUTE MONOCYTES (AUTO) 0.3 10^3/uL (0.1-1.4); ABSOLUTE NEUT (AUTO) 3.2 10^3/uL (1.7-8.2); BASOPHILS % (AUTO) 1.1 % (0-2); EOSINOPHILS % (AUTO) 6.3 % (0-6); HEMATOCRIT 27.1 % (36.0-47.0); HEMOGLOBIN 9.3 g/dL (12.0-15.5); HGB HCT DIFFERENCE 0.8; LYMPHOCYTES % (AUTO) 19.5 % (13-45); MEAN CORPUSCULAR HEMOGLOBIN 26.8 pg (27.0-33.4); MEAN CORPUSCULAR HGB CONC 34.2 g/dL (32.0-36.0); MEAN CORPUSCULAR VOLUME 79 fl (80-97); MONOCYTES % (AUTO) 6.3 % (3-13); RED BLOOD COUNT 3.46 10^6/uL (3.72-5.28); RED CELL DISTRIBUTION WIDTH 20.7 % (11.5-14.0); SEGMENTED NEUTROPHILS % (AUTO) 66.8 % (42-78); WHITE BLOOD COUNT 4.9 10^3/uL (4.0-10.5)
[2017-07-22 06:33] LABS: ANION GAP 8 (5-19); BLOOD UREA NITROGEN 19 mg/dL (7-20); CARBON DIOXIDE 26 mmol/L (22-30); CHLORIDE 108 mmol/L (98-107); CREATININE RESULT 0.94 mg/dL (0.52-1.25); GLUCOSE 82 mg/dL (75-110); MAGNESIUM 1.8 mg/dL (1.6-2.3); POTASSIUM 4.2 mmol/L (3.6-5.0)
[2017-07-22 06:44] LABS: CALCIUM 6.2 mg/dL (8.4-10.2)
[2017-07-22] MEDS ORDERED: CALCIUM GLUCONATE 1000 MG/10 ML INJ IV ONE (08:17)
[2017-07-22] MEDS: FERROUS SULFATE 325 MG TABLET PO SCH ×3 (10:57→17:11)
[2017-07-22] MEDS: LACTOBACILLUS ACIDOPHILUS 250 MG TAB PO SCH ×2 (10:57→17:11)
[2017-07-22] MEDS: METOPROLOL TARTRATE 25 MG TABLET PO SCH ×2 (10:58→23:05)
[2017-07-22] MEDS: NORMAL SALINE 10 ML SDV (SCHEDULED) IV SCH ×2 (10:58→22:51)
[2017-07-22] MEDS: CALCITRIOL 0.25 MCG CAPSULE PO SCH ×2 (11:00→17:12)
[2017-07-22] MEDS: PANTOPRAZOLE SODIUM 40 MG VIAL IV SCH ×2 (11:00→22:50)
[2017-07-22] MEDS: FLUCONAZOLE 200 MG/NS RTU 100 ML IV SCH (11:05)
[2017-07-22] MEDS: AMMONIUM LACTATE 12% LOTION 225GM BOTTLE TP SCH ×2 (11:07→22:51)
[2017-07-22] MEDS: SILVER SULFADIAZINE 1% CREAM 25 GM TP SCH (11:07)
--- NOTE | 2017-07-22 13:08 | RADIOLOGY REPORT (SQ) ---
EXAM DESCRIPTION: VENOUS UNILATERAL UPPER COMPLETED DATE/TIME: 07/22/2017 12:50 pm REASON FOR STUDY: swelling right upper extremity COMPARISON: None. TECHNIQUE: Dynamic and static martinez scale and color images acquired of the right arm venous system. S elected spectral images acquired with additional compression and augmentation maneuvers. The contrala teral subclavian vein and internal jugular vein were also imaged. Images stored on PACS. LIMITATIONS: Limited study due to patient body habitus and scarring in the neck. FINDINGS: INTERNAL JUGULAR VEIN: Normal phasicity, compression, augmentation. No visualized echogeni c material on martinez scale. No defects on color images. Comparison opposite side normal. SUBCLAVIAN VEIN: Normal compression, augmentation. No visualized echogenic material on martinez scale. No defects on color images. AXILLARY VEIN: Normal compression, augmentation. No visualized echogenic material on martinez scale. No d efects on color images. BRACHIAL VEIN: Normal compression, augmentation. No visualized echogenic material on martinez scale. No d efects on color images. BASILIC VEIN: Normal compression, augmentation. No visualized echogenic material on martinez scale. No de fects on color images. CEPHALIC VEIN: Normal compression, augmentation. No visualized echogenic material on martinez scale. No d efects on color images. OTHER: PICC catheter visualized in the basilic vein. CONTRALATERAL SUBCLAVIAN VEIN AND INTERNAL JUGULAR VEIN: Normal phasicity, compression and augmentation. No visualized echogenic material on martinez scale. No de fects on color images. IMPRESSION: NO EVIDENCE DVT OR SVT IN THE RIGHT ARM. TECHNICAL DOCUMENTATION: JOB ID: [id number] Remote- All Rights Reserved
[2017-07-22] MEDS: CALCIUM CARBONATE 500 MG TABLET PO SCH ×2 (15:25→17:12)
--- NOTE | 2017-07-22 17:53 | PDOC PROGRESS REPORT ---
Subjective Progress Note for:: 07/22/17 Subjective:: The patient states she did not sleep very well last night. Otherwise she is feeling fine this morning. She denies fever chills. No chest pain, shortness of breath or heart palpitations. No nausea, vomiting or diarrhea. No dysuria, frequency or hematuria. She remains with wound VAC on foot. Reason For Visit: SYMPTOMATIC ANEMIA Physical Exam Vital Signs: Temp Pulse Resp BP Pulse Ox 98.0 F 65 16 139/56 H 99 07/22/17 17:07 07/22/17 17:07 07/22/17 17:07 07/22/17 17:07 07/22/17 17:07 Intake & Output 07/21/17 07/22/17 07/23/17 06:59 06:59 06:59 Intake Total 3847 2987 1044 Output Total 2050 1600 600 Balance 1797 1387 444 Weight 115.1 kg 115.1 kg General appearance: PRESENT: no acute distress, well-developed, well-nourished Head exam: PRESENT: atraumatic, normocephalic Eye exam: PRESENT: conjunctiva pink, EOMI, PERRLA. ABSENT: scleral icterus Ear exam: PRESENT: other - Large mass on the left ear Mouth exam: PRESENT: moist, tongue midline Respiratory exam: PRESENT: clear to auscultation lilia. ABSENT: rales, rhonchi, wheezes Cardiovascular exam: PRESENT: RRR. ABSENT: diastolic murmur, rubs, systolic murmur GI/Abdominal exam: PRESENT: normal bowel sounds, soft. ABSENT: distended, guarding, mass, organolmegaly, rebound, tenderness Rectal exam: PRESENT: deferred Extremities exam: PRESENT: other - Right foot with wound VAC in place. She has severe venous stasis changes bilaterally. Neurological exam: PRESENT: alert, awake, oriented to person, oriented to place , oriented to time, oriented to situation, CN II-XII grossly intact. ABSENT: motor sensory deficit Psychiatric exam: PRESENT: appropriate affect, normal mood. ABSENT: homicidal ideation, suicidal ideation Skin exam: PRESENT: dry, intact, warm. ABSENT: cyanosis, rash Results Laboratory Results: 07/22/17 05:57 07/22/17 05:57 07/22/17 07/22/17 05:57 05:57 WBC 4.9 RBC 3.46 L Hgb 9.3 L Hct 27.1 L MCV 79 L MCH 26.8 L MCHC 34.2 RDW 20.7 H Plt Count 262 Seg Neutrophils % 66.8 Lymphocytes % 19.5 Monocytes % 6.3 Eosinophils % 6.3 H Basophils % 1.1 Absolute Neutrophils 3.2 Absolute Lymphocytes 0.9 Absolute Monocytes 0.3 Absolute Eosinophils 0.3 Absolute Basophils 0.1 Sodium 142.0 Potassium 4.2 Chloride 108 H Carbon Dioxide 26 Anion Gap 8 BUN 19 Creatinine 0.94 Est GFR ( Amer) > 60 Est GFR (Non-Af Amer) 59 L Glucose 82 Calcium 6.2 L* Magnesium 1.8 Impressions: Chest X-Ray 07/14/17 10:22 IMPRESSION: NO ACUTE RADIOGRAPHIC FINDING IN THE CHEST. Foot X-Ray 07/15/17 00:00 IMPRESSION: Plantar calcaneal ulcer with demineralization left plantar calcaneus worrisome for osteomyelitis. Guidance Fluoroscopy 07/15/17 00:00 IMPRESSION: SUCCESSFUL PLACEMENT OF A 5 FR DUAL LUMEN 44 CM PICC IN THE RIGHT BASILIC VEIN. Interventional Vascular Procedure 07/15/17 00:00 IMPRESSION: SUCCESSFUL PLACEMENT OF A 5 FR DUAL LUMEN 44 CM PICC IN THE RIGHT BASILIC VEIN. PICC Line Insertion 07/15/17 00:00 IMPRESSION: SUCCESSFUL PLACEMENT OF A 5 FR DUAL LUMEN 44 CM PICC IN THE RIGHT BASILIC VEIN. Venous Doppler Study 07/22/17 00:00 IMPRESSION: NO EVIDENCE DVT OR SVT IN THE RIGHT ARM. Assessment & Plan - Diagnosis (1) Ulcer of right heel Is this a current diagnosis for this admission?: Yes Plan: Orthopedic surgery has seen the patient. We certainly appreciate their input. She will continue with wound VAC in place. (2) Symptomatic anemia Is this a current diagnosis for this admission?: Yes Plan: She has an iron deficiency anemia. She has been transfused and currently her hemoglobin is stable. (3) Ear mass Qualifiers: Laterality: left Qualified Code(s): H93.8X2 - Other specified disorders of left ear Is this a current diagnosis for this admission?: Yes Plan: The patient wants no further workup for her ear mass during this hospitalization. (4) Tachycardia Is this a current diagnosis for this admission?: Yes Plan: Likely due to severe anemia. Resolved (5) Laura infection of flexural skin Is this a current diagnosis for this admission?: Yes Plan: Continue nystatin powder (6) Hypocalcemia Is this a current diagnosis for this admission?: Yes Plan: She was given calcium gluconate this morning. I am going to increase her calcitriol and calcium carbonate today as well. (8) Hypothyroidism Is this a current diagnosis for this admission?: Yes Plan: Continue Synthroid (9) Vitamin D deficiency Is this a current diagnosis for this admission?: Yes Plan: She has been started on 50,000 units a week. (10) Hypokalemia Is this a current diagnosis for this admission?: Yes Plan: Repleted (11) Hypomagnesemia Plan: Repleted - Time Time Spent with patient: 25-34 minutes - Inpatient Certification Medical Necessity: Other - Inpatient hospitalization remains necessary. I believe the stable she is stable for transfer to a skilled facility as soon as a bed is found. From reviewing the discharge planning notes it looks as if she may have a bed offer but she has not yet accepted it. I will follow-up with this tomorrow.
[2017-07-23] MEDS: LEVOTHYROXINE SODIUM 0.112 MG TABLET PO SCH (05:17)
[2017-07-23] MEDS: LEVOTHYROXINE SODIUM 0.025 MG TABLET PO SCH (05:17)
[2017-07-23 06:39] LABS: ABSOLUTE BASOPHILS # (AUTO) 0.1 10^3/uL (0.0-0.2); ABSOLUTE EOSINOPHILS # (AUTO) 0.3 10^3/uL (0.0-0.6); ABSOLUTE MONOCYTES (AUTO) 0.3 10^3/uL (0.1-1.4); ABSOLUTE NEUT (AUTO) 2.2 10^3/uL (1.7-8.2); BASOPHILS % (AUTO) 1.5 % (0-2); EOSINOPHILS % (AUTO) 8.1 % (0-6); HEMATOCRIT 26.5 % (36.0-47.0); HEMOGLOBIN 8.9 g/dL (12.0-15.5); HGB HCT DIFFERENCE 0.2; LYMPHOCYTES % (AUTO) 25.2 % (13-45); MEAN CORPUSCULAR HEMOGLOBIN 26.6 pg (27.0-33.4); MEAN CORPUSCULAR HGB CONC 33.6 g/dL (32.0-36.0); MEAN CORPUSCULAR VOLUME 79 fl (80-97); MONOCYTES % (AUTO) 7.7 % (3-13); RED BLOOD COUNT 3.34 10^6/uL (3.72-5.28); SEGMENTED NEUTROPHILS % (AUTO) 57.5 % (42-78); WHITE BLOOD COUNT 3.9 10^3/uL (4.0-10.5)
[2017-07-23 06:56] LABS: ANION GAP 8 (5-19); BLOOD UREA NITROGEN 17 mg/dL (7-20); CARBON DIOXIDE 29 mmol/L (22-30); CHLORIDE 105 mmol/L (98-107); CREATININE RESULT 0.87 mg/dL (0.52-1.25); GLUCOSE 85 mg/dL (75-110); MAGNESIUM 1.7 mg/dL (1.6-2.3); PHOSPHORUS 4.7 mg/dL (2.5-4.5); POTASSIUM 3.9 mmol/L (3.6-5.0); SODIUM 141.5 mmol/L (137-145)
[2017-07-23 07:06] LABS: CALCIUM 6.4 mg/dL (8.4-10.2)
--- NOTE | 2017-07-23 08:12 | PDOC PROGRESS REPORT ---
Subjective Progress Note for:: 07/23/17 Subjective:: No complaints Reason For Visit: SYMPTOMATIC ANEMIA Physical Exam Vital Signs: Temp Pulse Resp BP Pulse Ox 98.0 F 69 16 129/46 H 99 07/22/17 23:20 07/23/17 07:00 07/22/17 23:20 07/22/17 23:20 07/22/17 23:20 Intake & Output 07/22/17 07/23/17 07/24/17 06:59 06:59 06:59 Intake Total 2987 2022 Output Total 1600 1600 Balance 1387 422 Weight 115.1 kg 115 kg General appearance: PRESENT: no acute distress, cooperative Extremities exam: PRESENT: other - Right calcaneal wound with wound VAC in place. No surrounding erythema. Results Laboratory Results: 07/23/17 05:05 07/23/17 05:05 07/23/17 07/23/17 05:05 05:05 WBC 3.9 L RBC 3.34 L Hgb 8.9 L Hct 26.5 L MCV 79 L MCH 26.6 L MCHC 33.6 RDW 21.0 H Plt Count 251 Seg Neutrophils % 57.5 Lymphocytes % 25.2 Monocytes % 7.7 Eosinophils % 8.1 H Basophils % 1.5 Absolute Neutrophils 2.2 Absolute Lymphocytes 1.0 Absolute Monocytes 0.3 Absolute Eosinophils 0.3 Absolute Basophils 0.1 Sodium 141.5 Potassium 3.9 Chloride 105 Carbon Dioxide 29 Anion Gap 8 BUN 17 Creatinine 0.87 Est GFR ( Amer) > 60 Est GFR (Non-Af Amer) > 60 Glucose 85 Calcium 6.4 L* Phosphorus 4.7 H Magnesium 1.7 Impressions: Chest X-Ray 07/14/17 10:22 IMPRESSION: NO ACUTE RADIOGRAPHIC FINDING IN THE CHEST. Foot X-Ray 07/15/17 00:00 IMPRESSION: Plantar calcaneal ulcer with demineralization left plantar calcaneus worrisome for osteomyelitis. Guidance Fluoroscopy 07/15/17 00:00 IMPRESSION: SUCCESSFUL PLACEMENT OF A 5 FR DUAL LUMEN 44 CM PICC IN THE RIGHT BASILIC VEIN. Interventional Vascular Procedure 07/15/17 00:00 IMPRESSION: SUCCESSFUL PLACEMENT OF A 5 FR DUAL LUMEN 44 CM PICC IN THE RIGHT BASILIC VEIN. PICC Line Insertion 07/15/17 00:00 IMPRESSION: SUCCESSFUL PLACEMENT OF A 5 FR DUAL LUMEN 44 CM PICC IN THE RIGHT BASILIC VEIN. Venous Doppler Study 07/22/17 00:00 IMPRESSION: NO EVIDENCE DVT OR SVT IN THE RIGHT ARM. Assessment & Plan - Diagnosis (1) Ulcer of right heel Is this a current diagnosis for this admission?: Yes Plan: Calcaneal heel ulcer currently being managed with wound VAC. Orthopedic has seen patient and although they feel that she will eventually require a below the knee amputation they do not see any harm in continuing current management with wound VAC. Recommend seeking placement for the patient and for management of her wound through the wound care clinic with continued wound VAC as an outpatient.
[2017-07-23] MEDS: FERROUS SULFATE 325 MG TABLET PO SCH ×3 (11:04→17:47)
[2017-07-23] MEDS: CALCIUM CARBONATE 500 MG TABLET PO SCH ×3 (11:04→17:47)
[2017-07-23] MEDS: LACTOBACILLUS ACIDOPHILUS 250 MG TAB PO SCH ×2 (11:04→17:47)
[2017-07-23] MEDS: CALCITRIOL 0.25 MCG CAPSULE PO SCH ×2 (11:04→17:47)
[2017-07-23] MEDS: SILVER SULFADIAZINE 1% CREAM 25 GM TP SCH (11:05)
[2017-07-23] MEDS: AMMONIUM LACTATE 12% LOTION 225GM BOTTLE TP SCH ×2 (11:05→23:13)
[2017-07-23] MEDS: METOPROLOL TARTRATE 25 MG TABLET PO SCH ×2 (11:05→23:13)
[2017-07-23] MEDS: PANTOPRAZOLE SODIUM 40 MG VIAL IV SCH (11:05)
[2017-07-23] MEDS: NORMAL SALINE 10 ML SDV (SCHEDULED) IV SCH ×2 (11:06→23:13)
[2017-07-23] MEDS ORDERED: CALCIUM GLUCONATE 1,000 MG in DEXTROSE 5%-WATER 50 ML IV ONE (16:02)
--- NOTE | 2017-07-23 16:04 | PDOC PROGRESS REPORT ---
Subjective Progress Note for:: 07/23/17 Subjective:: The patient is resting in her bed and has no complaints today. She denies fever chills. No chest pain, shortness of breath or heart palpitations. No nausea vomiting or diarrhea. No dysuria, frequency or hematuria. She was seen by general surgery today who believes she is stable for transfer to a skilled facility. She can follow-up at the wound clinic. I discussed this with the patient today and she states that she is not quite ready but really cannot elaborate. Reason For Visit: SYMPTOMATIC ANEMIA Physical Exam Vital Signs: Temp Pulse Resp BP Pulse Ox 98.0 F 82 18 143/57 H 100 07/23/17 11:02 07/23/17 11:02 07/23/17 11:02 07/23/17 11:02 07/23/17 11:02 Intake & Output 07/22/17 07/23/17 07/24/17 06:59 06:59 06:59 Intake Total 2987 2022 Output Total 1600 1600 Balance 1387 422 Weight 115.1 kg 115 kg General appearance: PRESENT: no acute distress, well-developed, well-nourished Head exam: PRESENT: atraumatic, normocephalic Ear exam: PRESENT: other - Patient with large mass on her left ear Mouth exam: PRESENT: moist, tongue midline Respiratory exam: PRESENT: clear to auscultation lilia. ABSENT: rales, rhonchi, wheezes Cardiovascular exam: PRESENT: RRR. ABSENT: diastolic murmur, rubs, systolic murmur GI/Abdominal exam: PRESENT: normal bowel sounds, soft. ABSENT: distended, guarding, mass, organolmegaly, rebound, tenderness Rectal exam: PRESENT: deferred Extremities exam: PRESENT: full ROM, other - Wound VAC in place to the right lower foot. She has significant venous stasis changes in both of her lower extremities bilaterally with venous stasis ulcer. ABSENT: calf tenderness, clubbing, pedal edema Neurological exam: PRESENT: alert, awake, oriented to person, oriented to place , oriented to time, oriented to situation, CN II-XII grossly intact. ABSENT: motor sensory deficit Psychiatric exam: PRESENT: appropriate affect, normal mood. ABSENT: homicidal ideation, suicidal ideation Results Laboratory Results: 07/23/17 05:05 07/23/17 05:05 07/23/17 07/23/17 05:05 05:05 WBC 3.9 L RBC 3.34 L Hgb 8.9 L Hct 26.5 L MCV 79 L MCH 26.6 L MCHC 33.6 RDW 21.0 H Plt Count 251 Seg Neutrophils % 57.5 Lymphocytes % 25.2 Monocytes % 7.7 Eosinophils % 8.1 H Basophils % 1.5 Absolute Neutrophils 2.2 Absolute Lymphocytes 1.0 Absolute Monocytes 0.3 Absolute Eosinophils 0.3 Absolute Basophils 0.1 Sodium 141.5 Potassium 3.9 Chloride 105 Carbon Dioxide 29 Anion Gap 8 BUN 17 Creatinine 0.87 Est GFR ( Amer) > 60 Est GFR (Non-Af Amer) > 60 Glucose 85 Calcium 6.4 L* Phosphorus 4.7 H Magnesium 1.7 Impressions: Chest X-Ray 07/14/17 10:22 IMPRESSION: NO ACUTE RADIOGRAPHIC FINDING IN THE CHEST. Foot X-Ray 07/15/17 00:00 IMPRESSION: Plantar calcaneal ulcer with demineralization left plantar calcaneus worrisome for osteomyelitis. Guidance Fluoroscopy 07/15/17 00:00 IMPRESSION: SUCCESSFUL PLACEMENT OF A 5 FR DUAL LUMEN 44 CM PICC IN THE RIGHT BASILIC VEIN. Interventional Vascular Procedure 07/15/17 00:00 IMPRESSION: SUCCESSFUL PLACEMENT OF A 5 FR DUAL LUMEN 44 CM PICC IN THE RIGHT BASILIC VEIN. PICC Line Insertion 07/15/17 00:00 IMPRESSION: SUCCESSFUL PLACEMENT OF A 5 FR DUAL LUMEN 44 CM PICC IN THE RIGHT BASILIC VEIN. Venous Doppler Study 07/22/17 00:00 IMPRESSION: NO EVIDENCE DVT OR SVT IN THE RIGHT ARM. Assessment & Plan - Diagnosis (1) Ulcer of right heel Is this a current diagnosis for this admission?: Yes Plan: Orthopedic surgery has seen the patient. We certainly appreciate their input. She will continue with wound VAC in place. (2) Symptomatic anemia Is this a current diagnosis for this admission?: Yes Plan: She has an iron deficiency anemia. She has been transfused and currently her hemoglobin is stable. (3) Ear mass Qualifiers: Laterality: left Qualified Code(s): H93.8X2 - Other specified disorders of left ear Is this a current diagnosis for this admission?: Yes Plan: The patient wants no further workup for her ear mass during this hospitalization. She states that she has had it looked done in the past and does not want to have it resected. (4) Tachycardia Is this a current diagnosis for this admission?: Yes Plan: Likely due to severe anemia. Resolved (5) Laura infection of flexural skin Is this a current diagnosis for this admission?: Yes Plan: Continue nystatin powder (6) Hypocalcemia Is this a current diagnosis for this admission?: Yes Plan: She will be given calcium gluconate this afternoon. She will continue increased dose of calcitriol and calcium carbonate. (7) History of thyroid cancer Is this a current diagnosis for this admission?: Yes (8) Hypothyroidism Is this a current diagnosis for this admission?: Yes Plan: Continue Synthroid (9) Vitamin D deficiency Is this a current diagnosis for this admission?: Yes Plan: She has been started on 50,000 units a week. (10) Hypokalemia Is this a current diagnosis for this admission?: Yes Plan: Repleted (11) Hypomagnesemia Plan: Repleted - Time Time Spent with patient: 25-34 minutes - Inpatient Certification Based on my medical assessment, after consideration of the patient's comorbidities, presenting symptoms, or acuity I expect that the services needed warrant INPATIENT care.: Yes I certify that my determination is in accordance with my understanding of Medicare's requirements for reasonable and necessary INPATIENT services [42 CFR 412.3e].: Yes Medical Necessity: Other - The patient does have a bed offer available. She requires IV calcium today. I am hoping she will be stable for transfer to her skilled facility tomorrow.
[2017-07-23] MEDS ORDERED: CALCIUM GLUCONATE 1000 MG/10 ML INJ IV ONE (16:45)
[2017-07-23] MEDS: LANSOPRAZOLE 30 MG TAB.RAP.DR PO SCH (17:47)
[2017-07-24] MEDS: LANSOPRAZOLE 30 MG TAB.RAP.DR PO SCH ×2 (06:28→18:47)
[2017-07-24] MEDS: LEVOTHYROXINE SODIUM 0.112 MG TABLET PO SCH (06:29)
[2017-07-24] MEDS: LEVOTHYROXINE SODIUM 0.025 MG TABLET PO SCH (06:29)
[2017-07-24] MEDS: LACTOBACILLUS ACIDOPHILUS 250 MG TAB PO SCH ×2 (11:04→18:53)
[2017-07-24] MEDS: CALCIUM CARBONATE 500 MG TABLET PO SCH ×3 (11:04→18:53)
[2017-07-24] MEDS: METOPROLOL TARTRATE 25 MG TABLET PO SCH (11:05)
[2017-07-24] MEDS: FERROUS SULFATE 325 MG TABLET PO SCH ×3 (11:05→18:47)
[2017-07-24 11:29] LABS: ABSOLUTE BASOPHILS # (AUTO) 0.1 10^3/uL (0.0-0.2); ABSOLUTE EOSINOPHILS # (AUTO) 0.3 10^3/uL (0.0-0.6); ABSOLUTE LYMPHOCYTES (AUTO) 1.1 10^3/uL (0.5-4.7); ABSOLUTE MONOCYTES (AUTO) 0.3 10^3/uL (0.1-1.4); BASOPHILS % (AUTO) 1.7 % (0-2); EOSINOPHILS % (AUTO) 5.8 % (0-6); HEMATOCRIT 28.7 % (36.0-47.0); HEMOGLOBIN 9.5 g/dL (12.0-15.5); HGB HCT DIFFERENCE -0.2; LYMPHOCYTES % (AUTO) 23.1 % (13-45); MEAN CORPUSCULAR HEMOGLOBIN 26.5 pg (27.0-33.4); MEAN CORPUSCULAR VOLUME 80 fl (80-97); MONOCYTES % (AUTO) 5.4 % (3-13); RED BLOOD COUNT 3.58 10^6/uL (3.72-5.28); RED CELL DISTRIBUTION WIDTH 21.6 % (11.5-14.0); WHITE BLOOD COUNT 4.6 10^3/uL (4.0-10.5)
[2017-07-24 11:50] LABS: ANION GAP 7 (5-19); BLOOD UREA NITROGEN 15 mg/dL (7-20); CALCIUM 7.1 mg/dL (8.4-10.2); CARBON DIOXIDE 30 mmol/L (22-30); CHLORIDE 103 mmol/L (98-107); CREATININE RESULT 0.77 mg/dL (0.52-1.25); GLUCOSE 108 mg/dL (75-110); MAGNESIUM 1.7 mg/dL (1.6-2.3); PHOSPHORUS 4.1 mg/dL (2.5-4.5); POTASSIUM 3.8 mmol/L (3.6-5.0)
--- NOTE | 2017-07-24 14:57 | PDOC TRANSFER SUMMARY ---
General - Admit/Disc Date/PCP Admission Date/Primary Care Provider: 07/14/17 14:43 ANETA BLAKE Discharge Date: 07/24/17 - Discharge Diagnosis (1) Ulcer of right heel Is this a current diagnosis for this admission?: Yes Summary: The patient will continue wound VAC at nursing home facility. She will follow-up with the wound care clinic. (2) Symptomatic anemia Is this a current diagnosis for this admission?: Yes Summary: The patient has been transfused and currently her hemoglobin is stable. (3) Ear mass Is this a current diagnosis for this admission?: Yes Summary: She states this is been looked at in the past and she does not want any intervention. She can follow-up with ENT as an outpatient. For now we will just simply continue local wound care. (4) Tachycardia Is this a current diagnosis for this admission?: Yes Summary: Likely secondary to severe anemia. Resolved. (5) Laura infection of flexural skin Is this a current diagnosis for this admission?: Yes Summary: Continue nystatin powder. (6) Hypocalcemia Is this a current diagnosis for this admission?: Yes Summary: She received IV calcium gluconate. She will be discharged on an increased dose of calcitriol and calcium carbonate. Her hypocalcemia is due to her thyroidectomy. (7) History of thyroid cancer Is this a current diagnosis for this admission?: Yes (8) Hypothyroidism Is this a current diagnosis for this admission?: Yes Summary: She will continue Synthroid (9) Vitamin D deficiency Is this a current diagnosis for this admission?: Yes Summary: She will continue vitamin D supplementation. (10) Hypokalemia Is this a current diagnosis for this admission?: Yes Summary: Repleted (11) Hypomagnesemia Is this a current diagnosis for this admission?: Yes Summary: Repleted - Additional Information Discharge Diet: Regular Discharge Activity: Activity As Tolerated, Slowly Increase Activity Home Medications: Levothyroxine Sodium [Synthroid] 137 mcg PO DAILY 07/14/17 Acetaminophen [Tylenol 325 mg Tablet] 650 mg PO Q4HP PRN tablet 07/24/17 Ammonium Lactate [Lac-Hydrin 12% Lotion 225Gm/Bottle] 1 applic TP Q12 bottle Calcitriol [Rocaltrol 0.25 mcg Capsule] 0.25 mcg PO BID capsule 07/24/17 Calcium Carbonate [Os-Adam 500 mg Tablet (Oyster-Shell)] 1,000 mg PO TID tablet 07/24/17 Ergocalciferol (Vitamin D2) [Drisdol 50,000 unit (1.25MG) Capsule] 50,000 unit PO Mo@1000 capsule 07/24/17 Ferrous Sulfate [Feosol 325 mg Tablet] 325 mg PO MEALS tablet 07/24/17 Lansoprazole [Prevacid 30 mg Odt Tablet] 30 mg PO BID@0600,1700 tab.gabrielle. 04/02 History of Present Illness Admission Date/PCP: 07/14/17 14:43 ANETA BLAKE History of Present Illness: The patient is a 66-year-old white female who was admitted for at least in part a right plantar foot ulcer. She reports approximately a 5 week history of right foot problems and having maintained at least a household ambulator status without assist devices prior to that time. Over the last 5 weeks she has had progressive issues with the right lower extremity. She is evaluated upon admission and found to have a 10 x 10 cm calcaneal ulcer that extended down to the underlying bone. This is being treated with a wound VAC and topical dressings to the more proximal lower leg skin changes. Orthopedics is presumably consulted for management of the plantar ulcer. Hospital Course Hospital Course: The patient is a 66-year-old female with a past medical history significant for thyroid cancer status post thyroidectomy. She is now on chronic thyroid and calcium replacement. Patient presented to the emergency room with a right heel ulcer. She also was weak and felt as if her hemoglobin may be low. The patient was noted at the time of admission to have a large growth on her left ear which she states is followed at [facility]. The patient uses soap and water and places gauze on it on a daily basis. In the emergency room the patient was found to be quite tachycardic with a hemoglobin of 7.1. Ultimately she has required 3 units of blood to be transfused during this hospitalization. She had multiple electrolyte abnormalities with severe hypocalcemia which have been repleted and are stable at the time of discharge. The patient was followed by general surgery as well as orthopedic surgery. Ultimately she did not require any surgical procedure and it was recommended that a wound VAC be placed. She will need to be followed closely at the wound care clinic. Dr. Chao evaluated the patient prior to discharge and feels like ultimately she may end up needing a below the knee amputation. At this point we are going to try local wound care. The patient was in quite poor shape when she presented to the hospital. She is being sent to a nursing home facility to monitor her wound VAC and for wound nursing home care for now. At this point maximum hospital benefit has been reached. The patient will be sent home today to her skilled facility today in stable condition. Physical Exam Vital Signs: Temp Pulse Resp BP Pulse Ox 98.0 F 79 16 147/70 H 100 07/24/17 11:49 07/24/17 11:49 07/24/17 11:49 07/24/17 11:49 07/24/17 11:49 Intake & Output 07/23/17 07/24/17 07/25/17 06:59 06:59 06:59 Intake Total 2021 2067 Output Total 1600 950 Balance 422 1118 Weight 115 kg 115 kg General appearance: PRESENT: no acute distress, well-developed, well-nourished Eye exam: PRESENT: conjunctiva pink, EOMI, PERRLA. ABSENT: scleral icterus Mouth exam: PRESENT: moist, tongue midline Neck exam: ABSENT: carotid bruit, JVD, lymphadenopathy, thyromegaly Respiratory exam: PRESENT: clear to auscultation lilia. ABSENT: rales, rhonchi, wheezes Cardiovascular exam: PRESENT: RRR. ABSENT: diastolic murmur, rubs, systolic murmur GI/Abdominal exam: PRESENT: normal bowel sounds, soft. ABSENT: distended, guarding, mass, organolmegaly, rebound, tenderness Rectal exam: PRESENT: deferred Extremities exam: PRESENT: other - Patient has significant venous stasis changes to both of her lower extremities bilaterally. Right foot has wound VAC in place. She has quite a bit of edema bilaterally as well. Neurological exam: PRESENT: alert, awake, oriented to person, oriented to place , oriented to time, oriented to situation, CN II-XII grossly intact. ABSENT: motor sensory deficit Psychiatric exam: PRESENT: appropriate affect, normal mood. ABSENT: homicidal ideation, suicidal ideation Skin exam: PRESENT: dry, intact, warm. ABSENT: cyanosis, rash Results Laboratory Results: 07/24/17 11:10 07/24/17 11:10 07/24/17 07/24/17 11:10 11:10 WBC 4.6 RBC 3.58 L Hgb 9.5 L Hct 28.7 L MCV 80 MCH 26.5 L MCHC 33.0 RDW 21.6 H Plt Count 241 Seg Neutrophils % 64.0 Lymphocytes % 23.1 Monocytes % 5.4 Eosinophils % 5.8 Basophils % 1.7 Absolute Neutrophils 3.0 Absolute Lymphocytes 1.1 Absolute Monocytes 0.3 Absolute Eosinophils 0.3 Absolute Basophils 0.1 Sodium 140.0 Potassium 3.8 Chloride 103 Carbon Dioxide 30 Anion Gap 7 BUN 15 Creatinine 0.77 Est GFR ( Amer) > 60 Est GFR (Non-Af Amer) > 60 Glucose 108 Calcium 7.1 L Phosphorus 4.1 Magnesium 1.7 Impressions: Chest X-Ray 07/14/17 10:22 IMPRESSION: NO ACUTE RADIOGRAPHIC FINDING IN THE CHEST. Foot X-Ray 07/15/17 00:00 IMPRESSION: Plantar calcaneal ulcer with demineralization left plantar calcaneus worrisome for osteomyelitis. Guidance Fluoroscopy 07/15/17 00:00 IMPRESSION: SUCCESSFUL PLACEMENT OF A 5 FR DUAL LUMEN 44 CM PICC IN THE RIGHT BASILIC VEIN. Interventional Vascular Procedure 07/15/17 00:00 IMPRESSION: SUCCESSFUL PLACEMENT OF A 5 FR DUAL LUMEN 44 CM PICC IN THE RIGHT BASILIC VEIN. PICC Line Insertion 07/15/17 00:00 IMPRESSION: SUCCESSFUL PLACEMENT OF A 5 FR DUAL LUMEN 44 CM PICC IN THE RIGHT BASILIC VEIN. Venous Doppler Study 07/22/17 00:00 IMPRESSION: NO EVIDENCE DVT OR SVT IN THE RIGHT ARM. Transfer Plan - Disposition Transfer Plan: halfway facility - Time Spent with Patient Time spent with patient: Greater than 30 Minutes
[2017-07-24] MEDS: CALCITRIOL 0.25 MCG CAPSULE PO SCH ×2 (15:42→18:53)
[2017-07-24] MEDS: NORMAL SALINE 10 ML SDV (SCHEDULED) IV SCH (15:48)
[2017-07-24] MEDS: AMMONIUM LACTATE 12% LOTION 225GM BOTTLE TP SCH (18:48)
[2017-07-24] MEDS: SILVER SULFADIAZINE 1% CREAM 25 GM TP SCH (18:49)
[2017-07-24 21:32] VITALS: BP 134/70
[2017-07-27] MEDS ORDERED: ERGOCALCIFEROL (VITAMIN D2) 50000 UNIT (1.25 MG) CAPSULE PO SCH (10:00)
== END 2017-07-24 21:34 | DRG 812 ==
LOC: ER 10:02 → EH 14:43 → 4N 17:57
PROVIDERS: ADMIT Pediatrics; ATTEND Pediatrics
PROC: 30233N1 Transfusion of Nonautologous Red Blood Cells into Peripheral Vein, Percutaneous Approach (ICD-10-PCS; 2017-07-14)
PROC: 02HV33Z Insertion of Infusion Device into Superior Vena Cava, Percutaneous Approach (ICD-10-PCS; principal; 2017-07-15)
PROC: B518ZZA Fluoroscopy of Superior Vena Cava, Guidance (ICD-10-PCS; 2017-07-15)
PROC: B548ZZA Ultrasonography of Superior Vena Cava, Guidance (ICD-10-PCS; 2017-07-15)
DX: D50.9 Iron deficiency anemia, unspecified (principal); L97.416 Non-pressure chronic ulcer of right heel and midfoot with bone involvement without evidence of necrosis; L97.919 Non-pressure chronic ulcer of unspecified part of right lower leg with unspecified severity; L89.619 Pressure ulcer of right heel, unspecified stage; R00.0 Tachycardia, unspecified; E87.6 Hypokalemia; E55.9 Vitamin D deficiency, unspecified; E83.51 Hypocalcemia; E83.42 Hypomagnesemia; E89.0 Postprocedural hypothyroidism; L85.9 Epidermal thickening, unspecified; H93.8X2 Other specified disorders of left ear; B37.2 Candidiasis of skin and nail; R53.1 Weakness; Z60.2 Problems related to living alone
CPT/HCPCS: 36415; 36430; 36569; 51702; 71010; 76937; 77001; 80048; 80053; 80202; 81001; 82272; 82306; 82330; 82550; 82652; 82803; 82962; 83036; 83605; 83690; 83735; 83880; 84100; 84439; 84443; 84484; 85025; 85610; 85730; 86850; 86870; 86900; 86901; 86902; 86920; 86922; 93005; 93010; 93971; 96360; 96361; 99285; G8978-GP; G8979-GP; J0610; J1450; J1642; J1756; J2543; J3370; J3475; J3490; J7030; J7050; J7060; P9016; S0164

== ENCOUNTER → 2017-08-04 | Outpatient (CLI) | payer MEDICARE ==
--- NOTE | 2017-08-07 15:57 | XCELERA REPORT ---
[address] [address] Lower Extremity Arterial Evaluation Name: SCOOBY BLAKE V Age: 66 yrs Gender: Female : 1950 Patient Status: Preadmit Patient Location: Study Date: 08/04/2017 09:44 AM Procedure: A color flow and duplex scan of the lower extremity arteries was performed bilaterally with velocity and waveform anaylsis. Reason For Study: ULCER RIGHT FOOT Ordering Physician: NYDIA TEJEDA Performed By: Emily Dolan Measurements and Calculations Right Left COUPON COLLECTION CLERK PSV 192.5 191.2 cm/sec Prox PFA PSV -156.4 -92.6 cm/sec Prox SFA PSV 151.6 151.6 cm/sec Mid SFA PSV -136.7 -152.4 cm/sec Dist SFA PSV -119.4 -139.9 cm/sec Prox Pop A PSV 123.4 89.9 cm/sec Prox CANDIDA PSV -52.4 cm/sec Dist CANDIDA PSV 38.0 cm/sec Dist SALES [employer] MARKETING ENGINEER PSV 61.1 114.7 cm/sec Baljinder Pedis PSV 67.0 22.2 cm/sec Right Side Arterial Evaluation Normal velocity and biphasic waveforms noted from the Common Femoral artery to the Dorsalis Pedis artery . Monophasic in the Posterior and Anterior Tibial arteries. With well preserved velocities and amplitude. 0-19 % stenosis at the Aorta Iliac inflow. Sequential disease in the Posterior and Anterior Tibial arteries. Ankle Brachial index was not done. Left Side Arterial Evaluation Normal velocity and biphasic waveforms noted from the Common Femoral artery to the Posterior Tibial artery . Monophasic in the Anterior Tibial arteries. With well preserved velocities and amplitude. Much subcutaneous edema on ultrasound. 0-19 % stenosis at the Aorta Iliac inflow. Sequential disease distally. Interpretation Summary Moderate hemodynamically significant lesions in the right lower extremity only, on duplex imaging, at rest. Mild hemodynamically significant lesions in the left lower extremity only, on duplex imaging, at rest. : NYDIA TEJEDA > Frank Hernandez
== END ==
LOC: SP 09:30
PROVIDERS: ATTEND Preventive Medicine Undersea and Hyperbaric Medicine
DX: L97.414 Non-pressure chronic ulcer of right heel and midfoot with necrosis of bone (principal)
CPT/HCPCS: 93925

== ENCOUNTER 2017-11-05 12:09 | Emergency (ER) | payer MEDICARE, OTHER ==
--- NOTE | 2017-11-05 12:59 | ER Document Report ---
ED General - General Chief Complaint: Skin Problem Stated Complaint: HEAD INJURY Time Seen by Provider: 11/05/17 12:54 Notes: The patient is a 67-year-old female, past medical history chronic left facial wound (followed by [facility]), anemia, presents after her home wound care nurse was changing her dressing and noticed bleeding from the mass. The wound was redressed and the bleeding stopped prior to EMS arrival. When the patient arrived to the ER, he began to start bleeding again. She denies lightheadedness , injury, blood thinner use or headache. TRAVEL OUTSIDE OF THE [place] IN LAST 30 DAYS: No - Related Data Allergies/Adverse Reactions: No Known Allergies Allergy (Verified 07/14/17 11:41) Past Medical History - General Information source: Patient - Social History Smoking Status: Unknown if Ever Smoked Frequency of alcohol use: None Drug Abuse: None Family History: DM, Other - prostate cancer Patient has suicidal ideation: No Patient has homicidal ideation: No - Past Medical History Cardiac Medical History: Reports: Hx Hypercholesterolemia, Hx Hypertension Renal/ Medical History: Denies: Hx Peritoneal Dialysis Past Surgical History: Reports: Hx Thyroid Surgery, Other - History of total thyroidectomy at age 12 for cancer and neck dissection - Immunizations Hx Diphtheria, Pertussis, Tetanus Vaccination: Yes Review of Systems - Review of Systems Notes: REVIEW OF SYSTEMS: CONSTITUTIONAL: -fevers, -chills EENT: -eye pain, -difficulty swallowing, -nasal congestion CARDIOVASCULAR: -chest pain, -syncope. RESPIRATORY: -cough, -SOB GASTROINTESTINAL: -abdominal pain, -nausea, -vomiting, -diarrhea GENITOURINARY: -dysuria, -hematuria MUSCULOSKELETAL: -back pain, -neck pain SKIN: +facial wound HEMATOLOGIC: -easy bruising or bleeding. LYMPHATIC: -swollen, enlarged glands. NEUROLOGICAL: -altered mental status or loss of consciousness, -headache, - neurologic symptoms PSYCHIATRIC: -anxiety, -depression. ALL OTHER SYSTEMS REVIEWED AND NEGATIVE. Physical Exam - Vital signs Vitals: Temp Pulse Resp BP Pulse Ox 97.7 F 103 H 16 154/89 H 100 11/05/17 12:18 11/05/17 12:18 11/05/17 12:18 11/05/17 12:18 11/05/17 12:18 - Notes Notes: PHYSICAL EXAMINATION: GENERAL: Well-appearing, well-nourished and in no acute distress. HEAD: Atraumatic, normocephalic. EYES: Pupils equal round and reactive to light, extraocular movements intact, sclera anicteric, conjunctiva are normal. ENT: nares patent, oropharynx clear without exudates. Moist mucous membranes. NECK: Normal range of motion, supple without lymphadenopathy LUNGS: Breath sounds clear to auscultation bilaterally and equal. No wheezes rales or rhonchi. HEART: Regular rate and rhythm without murmurs ABDOMEN: Soft, nontender, normoactive bowel sounds. No guarding, no rebound. No masses appreciated. EXTREMITIES: Normal range of motion, no pitting or edema. No cyanosis. NEUROLOGICAL: Cranial nerves grossly intact. Normal speech, normal gait. Normal sensory and motor exams. PSYCH: Normal mood, normal affect. SKIN: Large fungating mass over left side of her face with bleeding from the inferior aspect of the inferior pedunculated mass. Course - Re-evaluation Re-evalutation: Patient with continuous oozing from her fungating left-sided facial mass despite pressure. Gauze soaked in TXA helped slow down the bleed. Prothrombin gauze was then applied to the bleed with cessation of the bleed. I called over to [facility] and [facility] to help arrange transfer to center with ENT/Plastics/Facial plastics, who are both very busy and it would be days before acceptance. 11/05/17 13:[address] Anand ([facility] ENT) and [facility] is full and not accepting patients. 11/05/17 14:10 Bleeding has now stopped with TXA and Prothrombin. Pressure dressing applied. She has home nursing visiting her tomorrow. Patient still offered transfer, but she declines at this time. Given strict return precautions and she understands. 11/05/17 14:46 Call from [facility] ENT attending. Pt has an advanced squamous cell carcinoma in 2013 that was diagnosed, but she refused any further care. They are recommending hospice/palliative care due to the advanced state but they would not operate based on how extensive the masses. Re-told patient that this is an end-stage condition and that she may bleed out in the future where we are unable to stop the bleeding. Also had case management discuss palliative care options. She understands. - Vital Signs Vital signs: Temp Pulse Resp BP Pulse Ox 97.7 F 103 H 16 154/89 H 100 11/05/17 12:18 11/05/17 12:18 11/05/17 12:18 11/05/17 12:18 11/05/17 12:18 Discharge - Discharge Clinical Impression: Bleeding from wound, Facial mass Condition: Stable Disposition: HOME, SELF-CARE Additional Instructions: Follow-up with your facial surgeon at [facility] for further evaluation and treatment. Return to the ER if you notice worsening bleeding or any other concerns. Forms: Elevated Blood Pressure Referrals: DIETER VARGAS MD [Primary Care Provider] - Follow up as needed DIETER SALAZAR DO [ASSOCIATE] - Follow up as needed
[2017-11-05] MEDS ORDERED: TRANEXAMIC ACID INJ/PF 1,000 MG/10 ML SDV IV ONE (13:15)
[2017-11-05 15:21] VITALS: BP 144/57
== END 2017-11-05 15:20 | disposition home or self-care (01) ==
LOC: ER 12:09
DX: S01.80XA Unspecified open wound of other part of head, initial encounter (principal); X58.XXXA Exposure to other specified factors, initial encounter; R22.0 Localized swelling, mass and lump, head; D64.9 Anemia, unspecified; E78.00 Pure hypercholesterolemia, unspecified; I10 Essential (primary) hypertension
CPT/HCPCS: 99283; 96374; J3490 ×2

== ENCOUNTER 2017-11-08 01:15 | Emergency (ER) | payer MEDICARE, OTHER ==
[2017-11-08] MEDS ORDERED: TRANEXAMIC ACID INJ/PF 1,000 MG/10 ML SDV IV ONE (01:28)
--- NOTE | 2017-11-08 02:04 | ER Document Report ---
ED General - General Chief Complaint: Ear Injury Stated Complaint: EAR BLEEDING Time Seen by Provider: 11/08/17 01:26 Notes: Patient is a 67-year-old female that comes emergency department for chief complaint of bleeding from a mass that is being off of the left side of her head in front of her ear. She was diagnosed with squamous cell carcinoma, refuse treatment, this has become a fungating mass which hangs off the side of her head, she was here a couple of days ago for bleeding from the area, she was treated and sent home, she states she accidentally bumped the mass when she was turning over in her bed tonight causing bleeding to begin again and prompting her evaluation. She comes by EMS. She denies any other complaints including denying any pain, fever, or any other concerns. TRAVEL OUTSIDE OF THE [place] IN LAST 30 DAYS: No - Related Data Allergies/Adverse Reactions: No Known Allergies Allergy (Verified 07/14/17 11:41) Past Medical History - General Information source: Patient - Social History Smoking Status: Never Smoker Chew tobacco use (# tins/day): No Frequency of alcohol use: None Drug Abuse: None Lives with: Alone Family History: DM, Other - prostate cancer Patient has suicidal ideation: No Patient has homicidal ideation: No - Past Medical History Cardiac Medical History: Reports: Hx Hypercholesterolemia, Hx Hypertension Renal/ Medical History: Denies: Hx Peritoneal Dialysis Past Surgical History: Reports: Hx Thyroid Surgery, Other - History of total thyroidectomy at age 12 for cancer and neck dissection - Immunizations Hx Diphtheria, Pertussis, Tetanus Vaccination: Yes Review of Systems - Review of Systems Constitutional: No symptoms reported EENT: See HPI Cardiovascular: No symptoms reported Respiratory: No symptoms reported Gastrointestinal: No symptoms reported Genitourinary: No symptoms reported Female Genitourinary: No symptoms reported Musculoskeletal: No symptoms reported Skin: See HPI Hematologic/Lymphatic: No symptoms reported Neurological/Psychological: No symptoms reported Physical Exam - Vital signs Vitals: Temp Pulse Resp BP Pulse Ox 97.8 F 110 H 20 165/71 H 100 11/08/17 01:22 11/08/17 01:22 11/08/17 01:22 11/08/17 01:22 11/08/17 01:22 - General General appearance: Appears well In distress: None - HEENT Head: Normocephalic, Atraumatic Eyes: Normal Conjunctiva: Normal Extraocular movements intact: Yes Eyelashes: Normal Pupils: PERRL Ears: Other - Patient with a fungating mass extending from over her left ear ( covering ear and extending out). THe mass projects out over to the side of the head and then descends, there is a stalk at the end of this mass and a looser area attached to the stalk, this looser area has current bleeding noted. There is a thin film of exudate over the top area of the mass. Sinus: Normal Nasal: Normal Mouth/Lips: Normal Mucous membranes: Normal Pharynx: Normal Neck: Normal - Respiratory Respiratory status: No respiratory distress Breath sounds: Normal. No: Decreased air movement, Wheezing - Cardiovascular Rhythm: Regular, Tachycardia Heart sounds: Normal auscultation, S1 appreciated, S2 appreciated - Abdominal Inspection: Normal Tenderness: Nontender - Back Back: Normal, Nontender - Extremities General upper extremity: Normal inspection, Nontender, Normal strength, Normal temperature General lower extremity: Normal inspection, Nontender, Normal strength, Normal temperature - Neurological Neuro grossly intact: Yes Cognition: Normal Orientation: AAOx4 [place] Coma Scale Eye Opening: Spontaneous [place] Coma Scale Verbal: Oriented [place] Coma Scale Motor: Obeys Commands [place] Coma Scale Total: 15 Speech: Normal Motor strength normal: LUE, RUE, LLE, RLE Sensory: Normal - Psychological Associated symptoms: Normal affect - slightly flat affect, Normal mood - patient calm, polite, cooperative - Skin Skin Temperature: Warm Skin Moisture: Dry Skin Color: Normal Course - Re-evaluation Re-evalutation: I asked patient and she states that she used to receive treatment for this from [facility], when asked further she states she was evaluated but she was told that at this point her mass is inoperable. She declines the contact [facility], states she just wants the bleeding stopped and wants to go home. 11/08/17 I used TXA on gauze along with quick clot and bulky dressing (after the wound area was cleaned) to stop the bleeding. This was successful. Patient was monitored for 1 hour. No rebleeding occurred. CBC does not show leukocytosis or significant anemia. Chemistry generally unremarkable. Discussed with patient, she states she does see her primary provider who knows about her situation, she does have a wound care nurse who takes care of her foot and her mass area. She declines additional evaluation or assistance. Discussed return precautions. Patient states understanding and agreement. - Vital Signs Vital signs: Temp Pulse Resp BP Pulse Ox 97.7 F 96 18 137/57 H 98 11/08/17 03:01 11/08/17 03:01 11/08/17 03:01 11/08/17 03:01 11/08/17 03:01 - Laboratory Result Diagrams: 11/08/17 01:56 11/08/17 01:56 Laboratory results interpreted by me: 11/08/17 11/08/17 01:56 01:56 Hgb 11.0 L Hct 33.1 L MCH 26.9 L RDW 15.3 H Seg Neutrophils % 78.4 H Lymphocytes % 12.4 L Carbon Dioxide 31 H BUN 28 H Calcium 8.2 L Discharge - Discharge Clinical Impression: Swelling, mass, or lump on face, Bleeding from wound Condition: Stable Disposition: HOME, SELF-CARE Additional Instructions: The bleeding has been stopped at this time. Please follow-up with your primary care provider within the next 2-3 days for additional evaluation and management. Return for any concerning or worsening symptoms including return to bleeding, pain to the area, fever, or any other concerning or worsening symptoms. Referrals: LISETTE VARGAS MD [Primary Care Provider] - Follow up as needed
[2017-11-08 02:32] LABS: ABSOLUTE EOSINOPHILS # (AUTO) 0.2 10^3/uL (0.0-0.6); ABSOLUTE LYMPHOCYTES (AUTO) 0.9 10^3/uL (0.5-4.7); ABSOLUTE MONOCYTES (AUTO) 0.4 10^3/uL (0.1-1.4); ABSOLUTE NEUT (AUTO) 5.8 10^3/uL (1.7-8.2); BASOPHILS % (AUTO) 0.6 % (0-2); EOSINOPHILS % (AUTO) 2.9 % (0-6); HEMATOCRIT 33.1 % (36.0-47.0); LYMPHOCYTES % (AUTO) 12.4 % (13-45); MEAN CORPUSCULAR HEMOGLOBIN 26.9 pg (27.0-33.4); MEAN CORPUSCULAR HGB CONC 33.4 g/dL (32.0-36.0); MEAN CORPUSCULAR VOLUME 81 fl (80-97); MONOCYTES % (AUTO) 5.7 % (3-13); PLATELET COUNT 313 10^3/uL (150-450); RED CELL DISTRIBUTION WIDTH 15.3 % (11.5-14.0); SEGMENTED NEUTROPHILS % (AUTO) 78.4 % (42-78); TOTAL CELLS COUNTED % (AUTO) 100 %; WHITE BLOOD COUNT 7.4 10^3/uL (4.0-10.5)
[2017-11-08 02:44] LABS: ANION GAP 8 (5-19); BLOOD UREA NITROGEN 28 mg/dL (7-20); CALCIUM 8.2 mg/dL (8.4-10.2); CARBON DIOXIDE 31 mmol/L (22-30); CHLORIDE 104 mmol/L (98-107); GLUCOSE 95 mg/dL (75-110); POTASSIUM 4.2 mmol/L (3.6-5.0); SODIUM 142.8 mmol/L (137-145)
[2017-11-08 03:15] VITALS: BP 137/57
== END 2017-11-08 03:15 | disposition home or self-care (01) ==
LOC: ER 01:15
DX: C76.0 Malignant neoplasm of head, face and neck (principal); R58 Hemorrhage, not elsewhere classified; I10 Essential (primary) hypertension; E89.0 Postprocedural hypothyroidism; Z85.850 Personal history of malignant neoplasm of thyroid
CPT/HCPCS: 99283; 96374; 36415; 85025; 80048; J3490

== ENCOUNTER 2019-03-27 05:19 | Emergency (ER) | payer MEDICARE, OTHER ==
--- NOTE | 2019-03-27 05:35 | ER Document Report ---
ED Medical Screen (RME) - General Stated Complaint: SHOULDER PAIN Time Seen by Provider: 03/27/19 05:32 Primary Care Provider: LISETTE VARGAS MD [Primary Care Provider] - Follow up as needed Mode of Arrival: Medic Information source: Patient, Emergency Med Personnel Notes: 68-year-old female with hypertension, hyperlipidemia, squamous cell carcinoma which she reports is an operable presents via EMS after a fall at home. Patient states that she was sleeping in her chair when she awoke to go to the bathroom and lost balance falling onto her left side. Patient is currently complaining of left shoulder pain, right foot pain. Patient reports that she has an "inoperable lesion" covering her left ear. She states that she does her own wound care. EMS reports the house was in horrible condition, foul-smelling with bugs everywhere. Patient denies any loss of consciousness. I have greeted and performed a rapid initial assessment of this patient. A comprehensive ED assessment and evaluation of the patient, analysis of test results and completion of medical decision making process we will be contacted by additional ED providers. PHYSICAL EXAMINATION: Vital signs reviewed GENERAL: Well-appearing, well-nourished and in no acute distress. LUNGS: No respiratory distress Musculoskeletal: Normal range of motion NEUROLOGICAL: Normal speech, normal gait. PSYCH: Normal mood, normal affect. SKIN: Active bleeding of the forehead, left ear TRAVEL OUTSIDE OF THE [place] IN LAST 30 DAYS: No - Related Data Allergies/Adverse Reactions: No Known Allergies Allergy (Verified 07/14/17 11:41) Past Medical History - Past Medical History Cardiac Medical History: Reports: Hx Hypercholesterolemia, Hx Hypertension Renal/ Medical History: Denies: Hx Peritoneal Dialysis Past Surgical History: Reports: Hx Thyroid Surgery, Other - History of total thyroidectomy at age 12 for cancer and neck dissection - Immunizations Hx Diphtheria, Pertussis, Tetanus Vaccination: Yes History of Influenza Vaccine for 05/2017 - 10/2017 Season: No Doctor's Discharge - Discharge Referrals: LISETTE VARGAS MD [Primary Care Provider] - Follow up as needed
[2019-03-27] MEDS ORDERED: ONDANSETRON HCL INJ/PF 4 MG/2 ML SDV IV ONE (06:53)
[2019-03-27] MEDS ORDERED: MORPHINE SULFATE 10 MG/ML INJ IV ONE (06:53)
[2019-03-27] MEDS ORDERED: NORMAL SALINE 500 ML IV ONE (06:54)
[2019-03-27] MEDS ORDERED: DIPH/PERTUSS(ACELL)/TETANUS VAC/PF 0.5 ML SYR (>=10YO) IM ONE (06:55)
--- NOTE | 2019-03-27 07:32 | ER Document Report ---
ED General - General Chief Complaint: Shoulder Pain Stated Complaint: SHOULDER PAIN Time Seen by Provider: 03/27/19 05:32 Primary Care Provider: LISETTE VARGAS MD [Primary Care Provider] - Follow up as needed Mode of Arrival: Medic TRAVEL OUTSIDE OF THE [place] IN LAST 30 DAYS: No - HPI Notes: Patient is a 68-year-old female who presents to the emergency department for evaluation after a fall. She states she was sleeping, got up to go to the bathroom. She did not grab her cane, and fell onto her left shoulder. She does believe she may have hit her head, is unsure as to whether or not she lost consciousness. She is unsure as to when her last tetanus shot was. She complains of pain primarily in her left shoulder, a small amount of pain in her right wrist. Upon EMS arrival, it was noted to the patient's home was not severely poor condition. There is extensive hoarding, bugs, and overall very poor living conditions. The patient is also noted to have a squamous cell carcinoma to the left side of her face. She states to me that it bleeds intermittently. She states that it was likely bleeding from her fall today. She tells me that she was seen at [facility] a few months ago, and is told it is "inoperable." - Related Data Allergies/Adverse Reactions: No Known Allergies Allergy (Verified 07/14/17 11:41) Past Medical History - General Information source: Patient, Emergency Med Personnel - Social History Smoking Status: Never Smoker Family History: DM, Other - prostate cancer Patient has suicidal ideation: No Patient has homicidal ideation: No - Past Medical History Cardiac Medical History: Reports: Hx Hypercholesterolemia, Hx Hypertension Renal/ Medical History: Denies: Hx Peritoneal Dialysis Malignancy Medical History: Reports: Hx Skin Cancer - Squamous cell carcinoma, Other - History of thyroid cancer, status post thyroidectomy Musculoskeletal Medical History: Reports Other - Lymphedema Past Surgical History: Reports: Hx Thyroid Surgery, Other - History of total thyroidectomy at age 12 for cancer and neck dissection - Immunizations Hx Diphtheria, Pertussis, Tetanus Vaccination: Yes Review of Systems - Review of Systems Constitutional: No symptoms reported EENT: No symptoms reported Cardiovascular: No symptoms reported Respiratory: No symptoms reported Gastrointestinal: No symptoms reported Genitourinary: No symptoms reported Musculoskeletal: See HPI Skin: See HPI Neurological/Psychological: No symptoms reported Physical Exam - Vital signs Vitals: Temp Pulse Resp BP Pulse Ox 99.1 F 113 H 18 137/65 H 97 03/27/19 06:28 03/27/19 06:28 03/27/19 06:28 03/27/19 06:28 03/27/19 06:28 - Notes Notes: Patient is a 68-year-old female who appears her stated age in no acute distress. Head is normocephalic. She has an extensive, moderately necrotic appearing lesion, consistent with likely squamous cell carcinoma, measures approximately 16 cm, over taking the left ear, scalp. It is foul-smelling, with fresh ble eding in the most superior aspect of the lesion. It nearly envelops the entire left ear, up to the midline aspect of the skull in the sagittal plane. Pupils are equal and round, reactive to light. Oral mucosa is moist. Examination of the cervical spine is no midline tenderness or step-off. No paraspinal musculature tenderness is noted. Heart is regular rate and rhythm, lungs are clear to auscultation bilaterally. Abdomen is soft, nontender, normoactive bowel sounds. Lower extremities reveal significant lymphedema, right greater than left. She has hyperkeratosis and skin changes consistent with chronic lymphedema. Neurovascularly intact distally. Patient has the left upper extremity held close to the body, with flexion of the elbow. She has no significant clavicular tenderness. She has some tenderness to palpation over the humeral head and the shaft of the humerus as well. No olecranon tenderness. No numbness or paresthesias in the area of the axillary nerve distribution. Full range of motion of the elbow, wrist, fingers, thumb. Neurovascularly intact. Patient does have 3 2 cm skin tears noted to the radial aspect of the right wrist. No active bleeding, no foreign body. Patient is awake and alert, oriented x3. No gross facial asymmetry. She moves all 4 extremities spontaneously. Course - Re-evaluation Re-evalutation: 03/27/19 12:46 Patient presents emergency department for evaluation. I went into patient's [facility] records. This squamous cell carcinoma certainly not ne w. She has refused any sort of intervention for her back in 2017. I went back into the room and discussed this with the patient. She admits that her primary care physician had told her he could refer her on to a surgeon he may be helpful. She states that she had told him "not to bother." In regards to the patient's living conditions, I explained to the patient that these were certainly concerning for worsening of her health issues, increasing her chances of infection. She states she understands that. She states that since being released from the halfway, she is "working on it." She understands the potential consequences of her actions. [facility] was notified. We will go ahead and place a social director consult to see if any further information or help can be offered. I spoke with Dr. Marvin Seals, orthopedist on-call at [facility]. He agrees that no surgical intervention would be needed at this time, sling is appropriate. We will send the patient home with a small amount of pain medication. She is to follow-up with her primary care provider this week as well. She is to return to the emergency department with worsening or new concerning symptoms. - Vital Signs Vital signs: Temp Pulse Resp BP Pulse Ox 99.1 F 113 H 18 137/65 H 97 03/27/19 06:28 03/27/19 06:28 03/27/19 06:28 03/27/19 06:28 03/27/19 06:28 - Laboratory Result Diagrams: 03/27/19 07:30 03/27/19 07:30 Laboratory results interpreted by me: 03/27/19 03/27/19 07:30 07:30 WBC 10.9 H Hgb 10.4 L Hct 31.4 L MCV 79 L MCH 26.4 L RDW 15.1 H Seg Neuts % (Manual) 93 H Lymphocytes % (Manual) 4 L Abs Neuts (Manual) 10.1 H Abs Lymphs (Manual) 0.4 L Potassium 3.5 L BUN 24 H Est GFR ( Amer) 56 L Est GFR (Non-Af Amer) 46 L Glucose 156 H - Diagnostic Test Radiology reviewed: Reports reviewed Radiology results interpreted by me: 03/27/19 12:[address] 03/27/19 05:32 IMPRESSION: No acute intracranial process. Chronic dermatofibrosarcoma protuberans. EVIDENCE OF ACUTE STROKE: NO. Shoulder X-Ray 03/27/19 05:32 IMPRESSION: Spiral fracture of the proximal humerus. Greater tuberosity fracture. Foot X-Ray 03/27/19 05:33 IMPRESSION: Severe osteopenia. No displaced fracture. Discharge - Discharge Clinical Impression: Closed fracture of left proximal humerus Ear mass Qualifiers: Laterality: left Qualified Code(s): H93.8X2 - Other specified disorders of left ear Condition: Stable Disposition: HOME, SELF-CARE Instructions: Fracture Proximal Humerus Additional Instructions: Wear sling as directed. Follow-up with your primary care provider this week. Take [place] as needed for severe pain. He can follow-up with Dr. Marvin Seals, orthopedic surgeon from [place], or the orthopedist of your choice. Return to the emergency department with worsening or new concerning symptoms of any sort. Referrals: LISETTE VARGAS MD [Primary Care Provider] - Follow up as needed
[2019-03-27 07:49] LABS: HEMATOCRIT 31.4 % (36.0-47.0); HEMOGLOBIN 10.4 g/dL (12.0-15.5); MEAN CORPUSCULAR HEMOGLOBIN 26.4 pg (27.0-33.4); MEAN CORPUSCULAR HGB CONC 33.2 g/dL (32.0-36.0); MEAN CORPUSCULAR VOLUME 79 fl (80-97); PLATELET COUNT 277 10^3/uL (150-450); RED BLOOD COUNT 3.96 10^6/uL (3.72-5.28); RED CELL DISTRIBUTION WIDTH 15.1 % (11.5-14.0); WHITE BLOOD COUNT 10.9 10^3/uL (4.0-10.5)
[2019-03-27 08:08] LABS: ALBUMIN 3.6 g/dL (3.5-5.0); ALKALINE PHOSPHATASE 101 U/L (38-126); ANION GAP 11 (5-19); ASPARTATE AMINO TRANSFERASE 20 U/L (14-36); BILIRUBIN,DIRECT 0.3 mg/dL (0.0-0.4); BILIRUBIN,TOTAL 0.6 mg/dL (0.2-1.3); BLOOD UREA NITROGEN 24 mg/dL (7-20); CALCIUM 9.4 mg/dL (8.4-10.2); CARBON DIOXIDE 28 mmol/L (22-30); CHLORIDE 98 mmol/L (98-107); GLUCOSE 156 mg/dL (75-110); POTASSIUM 3.5 mmol/L (3.6-5.0)
[2019-03-27 08:09] LABS: ABSOLUTE LYMPHOCYTES# (MANUAL) 0.4 10^3/uL (0.5-4.7); ABSOLUTE MONOCYTES # (MANUAL) 0.3 10^3/uL (0.1-1.4); BASOPHILS % (MANUAL) 0 % (0-2); EOSINOPHILS % (MANUAL) 0 % (0-6); LYMPHOCYTES % (MANUAL) 4 % (13-45); MONOCYTES % (MANUAL) 3 % (3-13); SEGMENTED NEUTROPHILS % (MAN) 93 % (42-78); TOTAL CELLS COUNTED 100
[2019-03-27 08:10] LABS: ANISOCYTOSIS SLIGHT; HYPOCHROMASIA SLIGHT; OVALOCYTES SLIGHT; PLATELET CLUMPS PRESENT; PLATELET COMMENT ADEQUATE; POIKILOCYTOSIS SLIGHT
--- NOTE | 2019-03-27 09:26 | RADIOLOGY REPORT (SQ) ---
EXAM DESCRIPTION: CT HEAD WITHOUT COMPLETED DATE/TIME: 03/27/2019 9:08 am REASON FOR STUDY: fall COMPARISON: 04/20/2015 TECHNIQUE: Axial images acquired through the brain without intravenous contrast. Images reviewed wi th bone, brain and subdural windows. Additional sagittal and coronal reconstructions were generated. Images stored on PACS. All CT scanners at this facility use dose modulation, iterative reconstruction, and/or weight based d osing when appropriate to reduce radiation dose to as low as reasonably achievable (ALARA). [facility]: Dose Right [facility]: CareDose [facility]: Dose Right [facility]: Teradose 4D [facility]: Smart [facility] RADIATION DOSE: CT Rad equipment meets quality standard of care and radiation dose reduction techniq ues were employed. CTDIvol: 53.2 mGy. DLP: 1097 mGy-cm. mGy. LIMITATIONS: None. FINDINGS: VENTRICLES: Normal size and contour. CEREBRUM: No masses. No hemorrhage. No midline shift. No evidence for acute infarction. Normal gra y/white matter differentiation. No areas of low density in the white matter. CEREBELLUM: No masses. No hemorrhage. No alteration of density. No evidence for acute infarction. EXTRAAXIAL SPACES: No fluid collections. No masses. ORBITS AND GLOBE: No intra- or extraconal masses. Normal contour of globe without masses. CALVARIUM: No fracture. PARANASAL SINUSES: No fluid or mucosal thickening. SOFT TISSUES: Chronic mass lesion along the left ear and face typical of dermatofibrosarcoma protuber ans. Soft tissue swelling left frontal. OTHER: No other significant finding. IMPRESSION: No acute intracranial process. Chronic dermatofibrosarcoma protuberans. EVIDENCE OF ACUTE STROKE: NO. COMMENT: Quality ID # [id number]: Final reports with documentation of one or more dose reduction techniques (e.g., Automated exposure control, adjustment of the mA and/or kV according to patient size, use of iterative reconstruction technique) TECHNICAL DOCUMENTATION: JOB ID: [id number] [employer]- All Rights Reserved Reading location - IP/workstation name: [email or web address]
--- NOTE | 2019-03-27 09:34 | RADIOLOGY REPORT (SQ) ---
EXAM DESCRIPTION: FOOT RIGHT COMPLETE COMPLETED DATE/TIME: 03/27/2019 9:26 am REASON FOR STUDY: fall COMPARISON: None. NUMBER OF VIEWS: Three views. TECHNIQUE: AP, lateral and oblique radiographic images acquired of the right foot. LIMITATIONS: None. FINDINGS: MINERALIZATION: Severe osteopenia. BONES: No acute fracture or dislocation. No worrisome bone lesions. JOINTS: No effusions. SOFT TISSUES: No soft tissue swelling. No foreign body. OTHER: No other significant finding. IMPRESSION: Severe osteopenia. No displaced fracture. TECHNICAL DOCUMENTATION: JOB ID: [id number] [employer]- All Rights Reserved Reading location - IP/workstation name: [email or web address]
--- NOTE | 2019-03-27 09:35 | RADIOLOGY REPORT (SQ) ---
EXAM DESCRIPTION: SHOULDER LEFT 2 OR MORE VIEWS COMPLETED DATE/TIME: 03/27/2019 9:26 am REASON FOR STUDY: fall COMPARISON: None. NUMBER OF VIEWS: Two views. TECHNIQUE: AP and Y-view. Images acquired of the left shoulder. LIMITATIONS: None. FINDINGS: MINERALIZATION: Marked osteopenia. BONES: Spiral fracture of the proximal 3rd of the humerus. Greater tuberosity fracture. JOINTS: No dislocation. VISUALIZED LUNGS AND RIBS: No pneumothorax. No rib fracture. SOFT TISSUES: No radiopaque foreign body. OTHER: No other significant finding. IMPRESSION: Spiral fracture of the proximal humerus. Greater tuberosity fracture. TECHNICAL DOCUMENTATION: JOB ID: [id number] [email or web address]- All Rights Reserved Reading location - IP/workstation name: [email or web address]
[2019-03-27 17:14] VITALS: BP 132/62
== END 2019-03-27 17:11 | disposition home or self-care (01) ==
LOC: ER 05:19
DX: S42.252A Displaced fracture of greater tuberosity of left humerus, initial encounter for closed fracture (principal); S61.511A Laceration without foreign body of right wrist, initial encounter; M25.512 Pain in left shoulder; M25.531 Pain in right wrist; W19.XXXA Unspecified fall, initial encounter; Y93.89 Activity, other specified; Y92.009 Unspecified place in unspecified non-institutional (private) residence as the place of occurrence of the external cause; H93.92 Unspecified disorder of left ear; C44.49 Other specified malignant neoplasm of skin of scalp and neck; I89.0 Lymphedema, not elsewhere classified; M85.871 Other specified disorders of bone density and structure, right ankle and foot; L85.9 Epidermal thickening, unspecified; I10 Essential (primary) hypertension; Z59.8 Other problems related to housing and economic circumstances
CPT/HCPCS: 99284; 36415; 87040; 85025; 80053; 73630; 73030; 70450; 90715; J2270; J2405; J7040

== ENCOUNTER → 2019-05-02 | Outpatient (CLI) | payer MEDICARE, OTHER ==
--- NOTE | 2019-05-02 15:44 | RADIOLOGY REPORT (SQ) ---
EXAM DESCRIPTION: HUMERUS LEFT COMPLETED DATE/TIME: 05/02/2019 3:29 pm REASON FOR STUDY: UNSP FRACTURE OF SHAFT OF HUMERUS, UNSP ARM, INIT S42.309A UNSP FRACTURE OF SHAFT OF HUMERUS, UNSP ARM, INIT COMPARISON: 03/27/2019. NUMBER OF VIEWS: Two views. TECHNIQUE: Two radiographic images were acquired of the left humerus to include elbow and shoulder i n at least one projection. LIMITATIONS: None. FINDINGS: MINERALIZATION: Normal. BONES: Displaced oblique fracture of the proximal humerus. No bony union. Impacted fracture of the humeral neck. No worrisome bone lesions. SOFT TISSUES: No obvious swelling or foreign body. OTHER: No other significant finding. IMPRESSION: DISPLACED OBLIQUE FRACTURE OF THE PROXIMAL HUMERUS WITHOUT BONY UNION. IMPACTED FRACTUR E OF THE HUMERAL NECK APPEARS UNCHANGED. TECHNICAL DOCUMENTATION: JOB ID: [id number] [email or web address]- All Rights Reserved Reading location - IP/workstation name: [email or web address]
== END ==
LOC: OD 15:06
PROVIDERS: ATTEND Internal Medicine
DX: S42.302A Unspecified fracture of shaft of humerus, left arm, initial encounter for closed fracture (principal); X58.XXXA Exposure to other specified factors, initial encounter; Y93.9 Activity, unspecified; Y92.9 Unspecified place or not applicable

== ENCOUNTER 2019-08-17 14:59 | Inpatient (IN) | payer MEDICARE, OTHER ==
--- NOTE | 2019-08-17 15:24 | ER Document Report ---
ED Medical Screen (RME) - General Chief Complaint: Leg Pain Stated Complaint: RIGHT LEG PAIN Time Seen by Provider: 08/17/19 15:20 Primary Care Provider: LISETTE VARGAS MD [Primary Care Provider] - Follow up as needed TRAVEL OUTSIDE OF THE [place] IN LAST 30 DAYS: No - HPI Notes: 08/17/19 15:24 Patient is a 68-year-old female with a history of hypertension and lymphedema who presents complaining of worsening swelling to her right lower extremity over the past several days. Her friend noticed that she had fluid buildup up to the knee on Thursday and has progressed to the mid thigh since then. She does have some dyspnea on exertion, but no other chest pain. She does have a chronic lesion to the left ear area that is being managed by her family doctor. Denies drug allergies. No history of DVT. I have treated and performed a rapid initial assessment of this patient. A comprehensive ED assessment and evaluation of the patient, analysis of test results and completion of medical decision making process will be conducted by additional ED providers. PHYSICAL EXAMINATION: GENERAL: Well-appearing, well-nourished and in no acute distress. A&Ox4. Answers questions appropriately. Right lower extremity: Significant swelling, asymmetric to the left, progressing to the mid thigh. - Related Data Allergies/Adverse Reactions: No Known Allergies Allergy (Verified 08/17/19 15:18) Past Medical History - Social History Frequency of alcohol use: None Drug Abuse: None - Past Medical History Cardiac Medical History: Reports: Hx Hypercholesterolemia, Hx Hypertension Renal/ Medical History: Denies: Hx Peritoneal Dialysis Malignancy Medical History: Reports: Hx Skin Cancer - Squamous cell carcinoma Past Surgical History: Reports: Hx Thyroid Surgery, Other - History of total thyroidectomy at age 12 for cancer and neck dissection - Immunizations Hx Diphtheria, Pertussis, Tetanus Vaccination: Yes Physical Exam - Vital signs Vitals: Temp Pulse Resp BP Pulse Ox 98.2 F 75 18 108/60 95 08/17/19 15:08/17/19 15:08/17/19 15:08/17/19 15:08/17/19 15:09 Course - Vital Signs Vital signs: Temp Pulse Resp BP Pulse Ox 98.2 F 75 18 108/60 95 08/17/19 15:08/17/19 15:08/17/19 15:08/17/19 15:09 08/17/19 15:09 Doctor's Discharge - Discharge Referrals: LISETTE VARGAS MD [Primary Care Provider] - Follow up as needed
--- NOTE | 2019-08-17 16:20 | RADIOLOGY REPORT (SQ) ---
EXAM DESCRIPTION: CHEST 2 VIEWS COMPLETED DATE/TIME: 08/17/2019 4:09 pm REASON FOR STUDY: [place] COMPARISON: 2014 TECHNIQUE: Frontal and lateral radiographic views of the chest acquired. NUMBER OF VIEWS: Two view. LIMITATIONS: Lateral view limited by overlying soft tissues. FINDINGS: LUNGS AND PLEURA: No opacities, masses or pneumothorax. No pleural effusion. MEDIASTINUM AND HILAR STRUCTURES: No masses or contour abnormalities. HEART AND VASCULAR STRUCTURES: Heart normal size. No evidence for failure. BONES: No acute findings. HARDWARE: None in the chest. OTHER: No other significant finding. IMPRESSION: NO SIGNIFICANT RADIOGRAPHIC FINDING IN THE CHEST. TECHNICAL DOCUMENTATION: JOB ID: [id number] [employer] All Rights Reserved Reading location - IP/workstation name: [email or web address]
[2019-08-17] MEDS ORDERED: PIPERACILLIN/TAZOBACTAM 4.5 GM VIAL IV ONE (16:24)
[2019-08-17] MEDS ORDERED: NORMAL SALINE IV ONE (16:24)
[2019-08-17] MEDS ORDERED: VANCOMYCIN HCL INJ 1000 MG VIAL IV ONE (16:24)
[2019-08-17] MEDS ORDERED: DILTIAZEM HCL INJ 25 MG/5 ML VIAL IV ONE (16:25)
[2019-08-17] MEDS ORDERED: DILTIAZEM HCL/D5W 125 MG/125 ML RTUINJ IV PRN ×2 (16:25→18:21)
--- NOTE | 2019-08-17 17:03 | ER Document Report ---
ED General - General Chief Complaint: Leg Pain Stated Complaint: RIGHT LEG PAIN Time Seen by Provider: 08/17/19 15:20 Primary Care Provider: LISETTE VARGAS MD [Primary Care Provider] - Follow up as needed TRAVEL OUTSIDE OF THE [place] IN LAST 30 DAYS: No - HPI Notes: Patient is a 68-year-old female who was brought into the emergency department for evaluation of right leg pain and swelling. Patient's friend, who happens to be a nurse, is the primary historian. Earlier this week, patient was ill with nausea, vomiting, diarrhea. Her last episode of emesis was Thursday morning, last episode of diarrhea was Thursday evening. She denies any hematemesis, no melena, no hematochezia. It was noted that she is had progressive weakness since then, and while changing her compression stockings, her friend noted that her right leg had become much more erythematous and edematous. No elisabeth fevers to their knowledge. Patient states she has been taking her medications as prescribed. On further questioning, patient denies any sort of chest pain or shortness of breath. She denies any sensation of palpitations. In addition to the pain that she is having in her right leg, patient also has pain in her left arm. She has a known midshaft humeral fracture, currently being followed. - Related Data Allergies/Adverse Reactions: No Known Allergies Allergy (Verified 08/17/19 15:18) Home Medications: List reviewed, please see chart Past Medical History - General Information source: Patient - Social History Smoking Status: Never Smoker Frequency of alcohol use: None Drug Abuse: None Family History: DM, Other - prostate cancer Patient has suicidal ideation: No Patient has homicidal ideation: No - Past Medical History Cardiac Medical History: Reports: Hx Hypercholesterolemia, Hx Hypertension Renal/ Medical History: Denies: Hx Peritoneal Dialysis Malignancy Medical History: Reports: 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 Musculoskeletal Medical History: Reports Other - Lymphedema Past Surgical History: Reports: Hx Thyroid Surgery, Other - History of total thyroidectomy at age 12 for cancer and neck dissection - Immunizations Hx Diphtheria, Pertussis, Tetanus Vaccination: Yes Review of Systems - Review of Systems Constitutional: See HPI EENT: No symptoms reported Cardiovascular: No symptoms reported Respiratory: No symptoms reported Physical Exam - Vital signs Vitals: Temp Pulse Resp BP Pulse Ox 98.2 F 75 18 108/60 95 08/17/19 15:09 08/17/19 15:09 08/17/19 15:09 08/17/19 15:09 08/17/19 15:09 - Notes Notes: This is a 68-year-old female who appears older than her stated age, no acute distress. Head is normocephalic. She has a very large bandage in place over the lesion over her left scalp and ear. She does not wish for it to be examined at this time. It is foul-smelling. There is some dried blood noted at the inferior aspect of the wound and bandage. This is stable from her last visit here several months ago. Pupils are equal round, reactive to light. Oral mucosa slightly dry. Examination of the neck yields well-healing surgical scar deformity to the right anterior neck into the supraclavicular fossa. Heart is irregularly irregular, tachycardic. Lungs are clear to auscultation bilaterally. Abdomen is soft, nontender, normoactive bowel sounds. Patient with lymphedema to bilateral lower extremities. She has 3+ pitting edema to the right lower extremity with marked erythema, well-demarcated, that tracks from the foot all the way to the right buttock. She has scaling and thickening of skin throughout bilateral lower extremities. There appears to be a slightly o pen wound on the lateral aspect of the foot, just distal to the lateral malleolus. She also has a 5 mm ulceration noted to the lateral aspect of the fifth toe. Sensation is intact, capillary refill is brisk. Course - Re-evaluation Re-evalutation: 08/17/19 17:22 Patient presents to the emergency department for evaluation. She is found to be in new onset rapid atrial fibrillation. Her blood pressure is borderline. I did order Cardizem both bolus and drip. I am certainly concerned about the possibility of sepsis in this patient, again given her borderline blood pressure and extensive infection noted to the right lower extremity. Sepsis work-up was ordered as well, including a 30 cc/kg bolus, Zosyn and vancomycin to cover for infection. Unfortunately, we were only able to obtain a 22-gauge in the patient's right hand, and she will need multiple stu mitten medications as well as IV fluids. This patient is not a candidate for a femoral line. She has had a radical neck dissection on the right. I did consult Dr. Finch in regards to placement of a central line. He was amenable to this. I explained the procedure in great detail, including indications, possible complications, and alternatives. Patient voiced understanding. Consent was signed and placed on the chart. Patient is stable. 08/17/19 18:16 Right central line was placed in the internal jugular by Dr. Finch. I did review the post chest x-ray, official radiology read is still pending, but line is in place. It was okayed for use. Patient was given her Cardizem bolus, heart rate immediately came down to the 98-115 range. Patient's blood pressure tolerated this as well. Drip started. Patient is receiving IV antibiotics, IV fluids. I spoke with Dr. Thompson, patient will be admitted to [facility] [place] for further care. 08/17/19 18:18 In regards to anticoagulation, I am not inclined to do that at this time in this patient. This is a 68-year-old female who has an extensive squamous cell carcinoma, that has had frequent active bleeding. I am concerned about the possibility of complications secondary to anticoagulation being higher than the likelihood of embolic stroke at this time. Will defer to internal medicine for this decision. - Vital Signs Vital signs: Temp Pulse Resp BP Pulse Ox 98.2 F 75 18 108/60 95 08/17/19 15:09 08/17/19 15:09 08/17/19 15:09 08/17/19 15:09 08/17/19 15:09 - Laboratory Result Diagrams: 08/17/19 16:38 08/17/19 16:38 Laboratory results interpreted by me: 08/17/19 08/17/19 08/17/19 16:38 16:38 16:38 WBC 25.4 H Hgb 11.6 L Hct 34.6 L RDW 16.1 H Seg Neuts % (Manual) 93 H Band Neutrophils % 6 H Lymphocytes % (Manual) 0 L Monocytes % (Manual) 1 L Abs Neuts (Manual) 25.1 H Abs Lymphs (Manual) 0.0 L PT Sodium 134.3 L Chloride 93 L BUN 53 H Creatinine 1.87 H Est GFR ( Amer) 32 L Est GFR (MDRD) Non-Af 27 L Lactic Acid Calcium 8.1 L Total Bilirubin 1.4 H Direct Bilirubin 0.6 H AST 58 H NT-Pro-B Natriuret Pep 5180 H Albumin 3.3 L TSH Urine Protein Urine Ketones Urine Blood Urine Urobilinogen Leukocyte Esterase Rfl 08/17/19 08/17/19 08/17/19 16:38 16:38 16:38 WBC Hgb Hct RDW Seg Neuts % (Manual) Band Neutrophils % Lymphocytes % (Manual) Monocytes % (Manual) Abs Neuts (Manual) Abs Lymphs (Manual) PT 16.7 H Sodium Chloride BUN Creatinine Est GFR ( Amer) Est GFR (MDRD) Non-Af Lactic Acid 3.0 H Calcium Total Bilirubin Direct Bilirubin AST NT-Pro-B Natriuret Pep Albumin TSH 6.37 H Urine Protein Urine Ketones Urine Blood Urine Urobilinogen Leukocyte Esterase Rfl 08/17/19 17:19 WBC Hgb Hct RDW Seg Neuts % (Manual) Band Neutrophils % Lymphocytes % (Manual) Monocytes % (Manual) Abs Neuts (Manual) Abs Lymphs (Manual) PT Sodium Chloride BUN Creatinine Est GFR ( Amer) Est GFR (MDRD) Non-Af Lactic Acid Calcium Total Bilirubin Direct Bilirubin AST NT-Pro-B Natriuret Pep Albumin TSH Urine Protein 30 H Urine Ketones TRACE H Urine Blood MODERATE H Urine Urobilinogen 2.0 H Leukocyte Esterase Rfl LARGE H - Diagnostic Test Radiology reviewed: Image reviewed, Reports reviewed Radiology results interpreted by me: 08/17/19 17:24 Chest X-Ray 08/17/19 15:26 IMPRESSION: NO SIGNIFICANT RADIOGRAPHIC FINDING IN THE CHEST. - EKG Interpretation by Me Additional EKG results interpreted by me: 08/17/19 17:24 Atrial fibrillation with a rate of 164, PVC noted. Left axis deviation. Normal intervals. No acute ST changes concerning for ischemia or infarction. Rhythm is a positive change from prior study. Critical Care Note - Critical Care Note Total time excluding time spent on procedures (mins): 40 Discharge - Discharge Clinical Impression: Severe sepsis, Cellulitis of right lower extremity, Rapid atrial fibrillation, Abnormal renal function Condition: Stable Disposition: ADMITTED INPATIENT Admitting Provider: Donna (Hospitalist) Unit Admitted: IMCU Referrals: LISETTE VARGAS MD [Primary Care Provider] - Follow up as needed
[2019-08-17 17:05] LABS: HEMATOCRIT 34.6 % (36.0-47.0); HEMOGLOBIN 11.6 g/dL (12.0-15.5); MEAN CORPUSCULAR HEMOGLOBIN 27.1 pg (27.0-33.4); MEAN CORPUSCULAR HGB CONC 33.4 g/dL (32.0-36.0); MEAN CORPUSCULAR VOLUME 81 fl (80-97); PLATELET COUNT 268 10^3/uL (150-450); RED BLOOD COUNT 4.27 10^6/uL (3.72-5.28); RED CELL DISTRIBUTION WIDTH 16.1 % (11.5-14.0); WHITE BLOOD COUNT 25.4 10^3/uL (4.0-10.5)
[2019-08-17 17:14] LABS: INTERNATIONAL RATION (INR) 1.35; PROTHROMBIN TIME 16.7 SEC (11.4-15.4)
[2019-08-17 17:27] LABS: ABSOLUTE MONOCYTES # (MANUAL) 0.3 10^3/uL (0.1-1.4); ANISOCYTOSIS 1+; BAND NEUTROPHILS % (MANUAL) 6 % (3-5); BASOPHILS % (MANUAL) 0 % (0-2); EOSINOPHILS % (MANUAL) 0 % (0-6); LYMPHOCYTES % (MANUAL) 0 % (13-45); MONOCYTES % (MANUAL) 1 % (3-13); SEGMENTED NEUTROPHILS % (MAN) 93 % (42-78); TOTAL CELLS COUNTED 100
[2019-08-17 17:28] LABS: ALBUMIN 3.3 g/dL (3.5-5.0); ALKALINE PHOSPHATASE 126 U/L (38-126); ANION GAP 16 (5-19); ASPARTATE AMINO TRANSFERASE 58 U/L (14-36); BILIRUBIN,DIRECT 0.6 mg/dL (0.0-0.4); BILIRUBIN,TOTAL 1.4 mg/dL (0.2-1.3); BLOOD UREA NITROGEN 53 mg/dL (7-20); CALCIUM 8.1 mg/dL (8.4-10.2); CARBON DIOXIDE 25 mmol/L (22-30); CHLORIDE 93 mmol/L (98-107); GLUCOSE 103 mg/dL (75-110); PLATELET COMMENT ADEQUATE; POTASSIUM 4.5 mmol/L (3.6-5.0); TOTAL PROTEIN 7.1 g/dL (6.3-8.2)
[2019-08-17 17:50] LABS: APPEARANCE,URINE CLOUDY; BILIRUBIN,URINE NEGATIVE (NEGATIVE); COLOR,URINE AMBER; GLUCOSE, URINE NEGATIVE (NEGATIVE); KETONES,URINE TRACE mg/dL (NEGATIVE); PROTEIN,URINE 30 mg/dL (NEGATIVE); URINE SPECIFIC GRAVITY 1.021
[2019-08-17] MEDS ORDERED: LIDOCAINE 1% INJ-PF (10 MG/ML) 30 ML SDV ONE (17:52)
--- NOTE | 2019-08-17 18:15 | Operative Report ---
Operative Report DATE OF SURGERY: 08/17/19 PREOPERATIVE DIAGNOSIS: Poor peripheral veins for IV access POSTOPERATIVE DIAGNOSIS: Same OPERATION: Placement of left internal jugular vein triple-lumen catheter under ultrasound guidance SURGEON: INGRID HERNANDEZ ANESTHESIA: Local TISSUE REMOVED OR ALTERED: None COMPLICATIONS: None ESTIMATED BLOOD LOSS: 10 cc QUANTITATIVE BLOOD LOSS: 10 INTRAOPERATIVE FINDINGS: Normal left internal jugular vein PROCEDURE: After informed consent obtained patient was placed in slight Trendelenburg position and the left neck prepped and draped in the usual sterile fashion. With the use of the ultrasound the left internal jugular vein was then identified and local anesthesia infiltrated on the skin overlying the vein. The vein was then punctured and internal and blood noted to be dark and nonpulsatile. I guidewire was then inserted through the needle towards the area of the superior vena cava and the needle removed. The puncture site was then dilated and a triple-lumen catheter inserted through the guidewire to a distance of about 18 cm. Guidewire was removed and all the 3 ports easily aspirated blood and instilled saline easily also. The catheter was then anchored to the skin with 3-0 silk. Biopatch placed at the insertion site and transparent sterile dressing placed over the Biopatch and catheter. A chest x-ray will be obtained for placement and to rule out any pneumothorax. Patient tolerated procedure well.
[2019-08-17] MEDS ORDERED: ONDANSETRON HCL INJ/PF 4 MG/2 ML SDV IV PRN (18:17)
[2019-08-17] MEDS ORDERED: PROMETHAZINE HCL INJ 25 MG/1 ML VIAL IV PRN (18:17)
[2019-08-17] MEDS ORDERED: ACETAMINOPHEN 325 MG TABLET PO PRN (18:17)
[2019-08-17] MEDS ORDERED: OXYCODONE-ACETAMINOPHEN 5-325 MG TABLET PO PRN (18:17)
[2019-08-17] MEDS ORDERED: HYDRALAZINE HCL INJ/PF 20 MG/1 ML SDV IV PRN (18:22)
[2019-08-17] MEDS ORDERED: METOPROLOL TARTRATE PF/INJ 5 MG/5 ML SDV IV PRN (18:22)
--- NOTE | 2019-08-17 18:24 | RADIOLOGY REPORT (SQ) ---
EXAM DESCRIPTION: CHEST SINGLE VIEW COMPLETED DATE/TIME: 08/17/2019 6:10 pm REASON FOR STUDY: Central Line Placement Confirmation COMPARISON: 08/18/2019 earlier. FINDINGS: Single-view chest AP portable upright. Left IJ line in place with tip to the cavoatrial junction, appropriate. No pneumothorax. Otherwise stable exam. TECHNICAL DOCUMENTATION: JOB ID: [id number] Reading location - IP/workstation name: [email or web address]
[2019-08-17] MEDS ORDERED: VANCOMYCIN HCL 0 MG in DEXTROSE 5%-WATER 250 ML IV NR (18:30)
--- NOTE | 2019-08-17 18:37 | EKG REPORT ---
SEVERITY:- ABNORMAL ECG - ATRIAL FIBRILLATION WITH RAPID V-RATE BORDERLINE LEFT AXIS DEVIATION BORDERLINE R WAVE PROGRESSION, ANTERIOR LEADS : Confirmed by: Sylvester Lal MD 17-Aug-2019 18:36:45
--- NOTE | 2019-08-17 18:47 | PDOC H&P ---
History of Present Illness Admission Date/PCP: LISETTE VARGAS MD History of Present Illness: VASHTI BLAKE is a 68 year old female has medical history of hypertension, thyroid cancer status post surgery and chemoradiation, left sabianist extensive necrotic lesion that the patient describes as nonoperable but does not provide much information, brought to ED for evaluation of right lower extremity pain and swelling. Patient is accompanied by Vashti her personal friend who happens to be a nurse who is also providing much of the history, stating that patient has been having nausea vomiting diarrhea for the last week, which is currently resolved at the time patient noticed that her right lower extremity was becoming erythematous below the knee, but 3 days later it progressed proximally all the way to the inguinal fold accompanied with swelling and tenderness. Patient also noted that she is feeling weaker than usual which is progressively getting worse accompanied with shortness of breath on exertion. Denies any chest pain, palpitation, orthopnea, paroxysmal nocturnal dyspnea, abdominal pain, headache, vision changes, urinary symptoms. In ED she was noted to be in A. fib RVR, elevated lactic acid, leukocytosis, elevated BNP, and ANJELICA. Patient was started on empiric IV antibiotics, volume resuscitation and hospital was consulted for admission. Past Medical History Cardiac Medical History: Reports: Hyperlipidema, Hypertension Malignancy Medical History: Reports: Skin Cancer - Squamous cell carcinoma - inoperable Musculoskeltal Medical History: Reports: Other - Lymphedema Hematology: Reports: Anemia Past Surgical History Past Surgical History: Reports: Other - History of total thyroidectomy at age 12 for cancer and neck dissection Social History Smoking Status: Never Smoker Frequency of Alcohol Use: None Hx Recreational Drug Use: No Hx Prescription Drug Abuse: No Family History Family History: DM, Other - prostate cancer Parental Family History Reviewed: Yes Children Family History Reviewed: Yes Sibling(s) Family History Reviewed.: Yes Medication/Allergy Home Medications: Levothyroxine Sodium [Synthroid] 137 mcg PO DAILY 07/14/17 Acetaminophen [Tylenol 325 mg Tablet] 650 mg PO Q4HP PRN tablet 07/24/17 Ammonium Lactate [Lac-Hydrin 12% Lotion 225Gm/Bottle] 1 applic TP Q12 bottle 07/24/17 Calcitriol [Rocaltrol 0.25 mcg Capsule] 0.25 mcg PO BID capsule 07/24/17 Calcium Carbonate [Os-Adam 500 mg Tablet (Oyster-Shell)] 1,000 mg PO TID tablet 12/08/17 Ergocalciferol (Vitamin D2) [Drisdol 50,000 unit (1.25MG) Capsule] 50,000 unit PO Mo@1000 capsule 07/24/17 Ferrous Sulfate [Feosol 325 mg Tablet] 325 mg PO MEALS tablet 07/24/17 Lansoprazole [Prevacid 30 mg Odt Tablet] 30 mg PO BID@0600,1700 tab. 07/24/17 Hydrocodone/Acetaminophen [Causey 5-325 mg Tablet] 1 tab PO Q6H PRN #14 tablet 03/27/19 Allergies/Adverse Reactions: No Known Allergies Allergy (Verified 08/17/19 15:18) Physical Exam Vital Signs: Temp Pulse Resp BP Pulse Ox 98.2 F 75 16 93/46 L 97 08/17/19 15:09 08/17/19 15:09 08/17/19 18:31 08/17/19 18:31 08/17/19 18:31 Intake & Output 08/16/19 08/17/19 08/18/19 06:59 06:59 06:59 Intake Total 3 Balance 3 Weight 94.8 kg General appearance: PRESENT: disheveled, obese Head exam: PRESENT: atraumatic, normocephalic, other - Left sabianist lesion about 15 x 15 cm, necrotic, foul-smelling, chronic. As per patient had it for several years and is not operable. Respiratory exam: PRESENT: clear to auscultation lilia. ABSENT: rales, rhonchi, wheezes Cardiovascular exam: PRESENT: irregular rhythm, tachycardia. ABSENT: diastolic murmur, rubs, systolic murmur GI/Abdominal exam: PRESENT: normal bowel sounds, soft. ABSENT: distended, guarding, mass, organolmegaly, rebound, tenderness Musculoskeletal exam: PRESENT: other - Right lower extremity erythema, swelling, tenderness circumferentially starting from the foot extending all the way to inguinal fold. Vascularly intact. Neurological exam: PRESENT: alert, awake, oriented to person, oriented to place, oriented to time, oriented to situation, CN II-XII grossly intact. ABSENT: motor sensory deficit Results Laboratory Results: 08/17/19 16:38 08/17/19 16:38 01/01/20 01/01/20 01/01/20 16:38 16:38 16:38 WBC 25.4 H RBC 4.27 Hgb 11.6 L Hct 34.6 L MCV 81 MCH 27.1 MCHC 33.4 RDW 16.1 H Plt Count 268 Seg Neutrophils % Not Reportable Sodium 134.3 L Potassium 4.5 Chloride 93 L Carbon Dioxide 25 Anion Gap 16 BUN 53 H Creatinine 1.87 H Est GFR ( Amer) 32 L Glucose 103 Lactic Acid 3.0 H Calcium 8.1 L Magnesium 1.8 Total Bilirubin 1.4 H AST 58 H Alkaline Phosphatase 126 Total Protein 7.1 Albumin 3.3 L TSH Urine Color Urine Appearance Urine pH Ur Specific Cornish Urine Protein Urine Glucose (UA) Urine Ketones Urine Blood Urine RBC (Auto) 08/17/19 08/17/19 16:38 17:19 WBC RBC Hgb Hct MCV MCH MCHC RDW Plt Count Seg Neutrophils % Sodium Potassium Chloride Carbon Dioxide Anion Gap BUN Creatinine Est GFR ( Amer) Glucose Lactic Acid Calcium Magnesium Total Bilirubin AST Alkaline Phosphatase Total Protein Albumin TSH 6.37 H Urine Color KARINA Urine Appearance CLOUDY Urine pH 5.0 Ur Specific Cornish 1.021 Urine Protein 30 H Urine Glucose (UA) NEGATIVE Urine Ketones TRACE H Urine Blood MODERATE H Urine RBC (Auto) 15 08/17/19 16:38 NT-Pro-B Natriuret Pep 5180 H Impressions: Chest X-Ray 08/17/19 15:26 IMPRESSION: NO SIGNIFICANT RADIOGRAPHIC FINDING IN THE CHEST. Assessment and Plan - Diagnosis (1) New onset atrial fibrillation Is this a current diagnosis for this admission?: Yes Plan: New onset A. fib RVR. CHADs Score 4. Chronic anticoagulation indicated. Admit to IMCU. IV Cardizem to be transitioned to either p.o. Cardizem or meto prolol. Consult cardiology. (2) ANJELICA (acute kidney injury) Is this a current diagnosis for this admission?: Yes Plan: Prerenal. Most likely due to dehydration caused by several days of nausea vomiting and diarrhea. Cautious volume resuscitation guided by volume status, avoid nephrotoxic meds, monitor volume status and electrolytes replace as needed. (3) Acute systolic heart failure Is this a current diagnosis for this admission?: Yes Plan: Denies any chest pain. Denies any history of CAD. Likely due to acute onset A. fib RVR. Admit to telemetry, cardiac diet, PA, beta-blockers, IV diuretics. (4) Cellulitis of right lower extremity Is this a current diagnosis for this admission?: Yes Plan: Extensive right lower extremity erythema and swelling extending from the foot all the way to the inguinal fold. No active discharge. Neurovascularly intact. No collection appreciated. Empiric broad-spectrum IV antibiotics. Blood culture. (5) Hypertension Is this a current diagnosis for this admission?: Yes Plan: Restart home meds. Adjust meds as needed. (6) SIRS (systemic inflammatory response syndrome) Is this a current diagnosis for this admission?: Yes Plan: Presenting with neutrophil leukocytosis and bandemia, elevated lactic acid, ANJELICA, mildly elevated liver function. Most likely to underlying cellulitis. Cautious volume resuscitation guided by volume status. Empiric IV antibiotics. Blood culture. (7) Nausea vomiting and diarrhea Is this a current diagnosis for this admission?: Yes Plan: Likely viral gastroenteritis. Resolved at the moment. Denies any recent sick contact. Cautious volume resuscitation guided by volume status. Monitor electrolytes and replace as needed.
[2019-08-17] MEDS ORDERED: DIGOXIN INJ 0.5 MG/2 ML AMPULE IV ONE (18:53)
[2019-08-17] MEDS: NORMAL SALINE 1000 ML 1,000 ML IV PRN (20:37)
[2019-08-17] MEDS: ALBUTEROL SULFATE 0.083% NEB 2.5 MG/3 ML AMPUL NEB SCH (20:56)
[2019-08-17 21:14] LABS: VENOUS BLOOD BASE EXCESS 0.7 mmol/L; VENOUS BLOOD HCO3 24.1 mmol/L (20-32); VENOUS BLOOD PCO2 34.4 mmHg (35-63); VENOUS BLOOD PH 7.46 (7.30-7.42)
[2019-08-17] MEDS: FAMOTIDINE 20 MG TABLET PO SCH (22:20)
[2019-08-17] MEDS: HEPARIN SOD (PORCINE) 5,000 UNIT/ML 1 ML VIAL SUBCUT SCH (22:20)
[2019-08-17] MEDS: CEFEPIME 1 GM/D5W RTU 1 GM/50 ML RTUPB IV SCH (22:21)
[2019-08-18] MEDS ORDERED: INFLUENZA QUAD (6MOS+) 2019-20 VAC 0.5 ML SYR IM ONE (00:14)
[2019-08-18] MEDS: NORMAL SALINE 1000 ML 1,000 ML IV PRN ×3 (04:32→22:58)
[2019-08-18] MEDS: HEPARIN SOD (PORCINE) 5,000 UNIT/ML 1 ML VIAL SUBCUT SCH ×3 (05:14→23:06)
[2019-08-18 05:29] LABS: HEMATOCRIT 28.3 % (36.0-47.0); HEMOGLOBIN 9.7 g/dL (12.0-15.5); MEAN CORPUSCULAR HEMOGLOBIN 27.4 pg (27.0-33.4); MEAN CORPUSCULAR HGB CONC 34.1 g/dL (32.0-36.0); MEAN CORPUSCULAR VOLUME 80 fl (80-97); PLATELET COUNT 200 10^3/uL (150-450); RED BLOOD COUNT 3.53 10^6/uL (3.72-5.28); RED CELL DISTRIBUTION WIDTH 15.8 % (11.5-14.0); WHITE BLOOD COUNT 19.6 10^3/uL (4.0-10.5)
[2019-08-18 05:45] LABS: ALBUMIN 2.4 g/dL (3.5-5.0); ALKALINE PHOSPHATASE 79 U/L (38-126); ANION GAP 11 (5-19); ASPARTATE AMINO TRANSFERASE 41 U/L (14-36); BILIRUBIN,DIRECT 0.5 mg/dL (0.0-0.4); BILIRUBIN,TOTAL 1.1 mg/dL (0.2-1.3); BLOOD UREA NITROGEN 46 mg/dL (7-20); CARBON DIOXIDE 24 mmol/L (22-30); CHLORIDE 98 mmol/L (98-107); GLUCOSE 83 mg/dL (75-110); TOTAL PROTEIN 5.3 g/dL (6.3-8.2); TRIGLYCERIDES 132 mg/dL (<150)
[2019-08-18 05:54] LABS: ABSOLUTE LYMPHOCYTES# (MANUAL) 0.4 10^3/uL (0.5-4.7); ABSOLUTE MONOCYTES # (MANUAL) 0.2 10^3/uL (0.1-1.4); BAND NEUTROPHILS % (MANUAL) 1 % (3-5); BASOPHILS % (MANUAL) 0 % (0-2); EOSINOPHILS % (MANUAL) 0 % (0-6); LYMPHOCYTES % (MANUAL) 2 % (13-45); MONOCYTES % (MANUAL) 1 % (3-13); SEGMENTED NEUTROPHILS % (MAN) 96 % (42-78); TOTAL CELLS COUNTED 100
[2019-08-18 05:55] LABS: ANISOCYTOSIS SLIGHT; PLATELET COMMENT ADEQUATE
[2019-08-18 05:56] LABS: DIRECT LDL 42 mg/dL (<100)
[2019-08-18 06:00] LABS: CALCIUM 6.9 mg/dL (8.4-10.2)
[2019-08-18 06:22] LABS: POTASSIUM 3.1 mmol/L (3.6-5.0)
[2019-08-18] MEDS ORDERED: POTASSIUM CHLORIDE 10 MEQ TABLET.ER PO ONE (08:00)
[2019-08-18] MEDS: ALBUTEROL SULFATE 0.083% NEB 2.5 MG/3 ML AMPUL NEB SCH ×3 (09:12→20:52)
[2019-08-18] MEDS: FAMOTIDINE 20 MG TABLET PO SCH ×2 (10:58→23:10)
[2019-08-18] MEDS: ASPIRIN 81 MG TABLET, CHEWABLE PO SCH (10:58)
[2019-08-18] MEDS: CEFEPIME 1 GM/D5W RTU 1 GM/50 ML RTUPB IV SCH ×2 (10:58→23:05)
--- NOTE | 2019-08-18 12:59 | PDOC PROGRESS REPORT ---
Subjective Progress Note for:: 08/18/19 Subjective:: VASHTI BLAKE is a 68 year old female has medical history of hypertension, thyroid cancer status post surgery and chemoradiation, left restorationist extensive necrotic lesion that the patient describes as nonoperable but does not provide much information, brought to ED for evaluation of right lower extremity pain and swelling. Patient is accompanied by Vashti her personal friend who happens to be a nurse who is also providing much of the history, stating that patient has been having nausea vomiting diarrhea for the last week, which is currently resolved at the time patient noticed that her right lower extremity was becoming erythematous below the knee, but 3 days later it progressed proximally all the way to the inguinal fold accompanied with swelling and tenderness. Patient also noted that she is feeling weaker than usual which is progressively getting worse accompanied with shortness of breath on exertion. Denies any chest pain, palpitation, orthopnea, paroxysmal nocturnal dyspnea, abdominal pain, headache, vision changes, urinary symptoms. In ED she was noted to be in A. fib RVR, elevated lactic acid, leukocytosis, elevated BNP, and ANJELICA. Patient was started on empiric IV antibiotics, volume resuscitation and hospital was consulted for admission. 08/18/2019. No acute events overnight. Patient comfortably resting in bed no apparent distress. Enjoying her breakfast. Complaining of right lower extremity tenderness otherwise denies any fever, chills, nausea, vomiting, diarrhea, constipation, palpitation or any urinary symptoms. Reason For Visit: NEW ONSET A FIB RVR ACUTE CHF SIRS Physical Exam Vital Signs: Temp Pulse Resp BP Pulse Ox 98.6 F 96 17 97/29 L 98 08/18/19 11:54 08/18/19 11:54 08/18/19 11:54 08/18/19 11:54 08/18/19 11:54 Intake & Output 08/17/19 08/18/19 08/19/19 06:59 06:59 06:59 Intake Total 3297 32 Output Total 350 Balance 2947 32 Weight 100.1 kg General appearance: PRESENT: no acute distress, obese, well-developed, well- nourished Head exam: PRESENT: atraumatic, normocephalic, other - Temporal chronic necrotic 15 x 15 cm lesion. Respiratory exam: PRESENT: clear to auscultation lilia. ABSENT: rales, rhonchi, wheezes Cardiovascular exam: PRESENT: RRR, tachycardia. ABSENT: diastolic murmur, rubs, systolic murmur GI/Abdominal exam: PRESENT: normal bowel sounds, soft. ABSENT: distended, guarding, mass, organolmegaly, rebound, tenderness Neurological exam: PRESENT: alert, awake, oriented to person, oriented to place, oriented to time, oriented to situation, CN II-XII grossly intact. ABSENT: motor sensory deficit Skin exam: PRESENT: other - Right lower extremity circumferential erythema and swelling starting at the feet and extending proximally to mid thigh. Improving compared to yesterday. Results Laboratory Results: 08/18/19 04:40 08/18/19 04:00 08/17/19 08/17/19 08/17/19 16:38 16:38 16:38 WBC 25.4 H RBC 4.27 Hgb 11.6 L Hct 34.6 L MCV 81 MCH 27.1 MCHC 33.4 RDW 16.1 H Plt Count 268 Seg Neutrophils % Not Reportable VBG pH VBG pCO2 VBG HCO3 VBG Base Excess Sodium 134.3 L Potassium 4.5 Chloride 93 L Carbon Dioxide 25 Anion Gap 16 BUN 53 H Creatinine 1.87 H Est GFR ( Amer) 32 L Glucose 103 Lactic Acid 3.0 H Calcium 8.1 L Magnesium 1.8 Total Bilirubin 1.4 H AST 58 H Alkaline Phosphatase 126 Total Protein 7.1 Albumin 3.3 L Triglycerides Cholesterol LDL Cholesterol Direct VLDL Cholesterol HDL Cholesterol TSH Urine Color Urine Appearance Urine pH Ur Specific [place] Urine Protein Urine Glucose (UA) Urine Ketones Urine Blood Urine RBC (Auto) 08/17/19 08/17/19 08/17/19 16:38 17:19 21:06 WBC RBC Hgb Hct MCV MCH MCHC RDW Plt Count Seg Neutrophils % VBG pH 7.46 H VBG pCO2 34.4 L VBG HCO3 24.1 VBG Base Excess 0.7 Sodium Potassium Chloride Carbon Dioxide Anion Gap BUN Creatinine Est GFR ( Amer) Glucose Lactic Acid Calcium Magnesium Total Bilirubin AST Alkaline Phosphatase Total Protein Albumin Triglycerides Cholesterol LDL Cholesterol Direct VLDL Cholesterol HDL Cholesterol TSH 6.37 H Urine Color KARINA Urine Appearance CLOUDY Urine pH 5.0 Ur Specific [place] 1.021 Urine Protein 30 H Urine Glucose (UA) NEGATIVE Urine Ketones TRACE H Urine Blood MODERATE H Urine RBC (Auto) 15 08/17/19 08/18/19 08/18/19 21:06 04:00 04:40 WBC 19.6 H RBC 3.53 L Hgb 9.7 L Hct 28.3 L MCV 80 MCH 27.4 MCHC 34.1 RDW 15.8 H Plt Count 200 Seg Neutrophils % Not Reportable VBG pH VBG pCO2 VBG HCO3 VBG Base Excess Sodium 133.2 L Potassium 3.1 L D Chloride 98 Carbon Dioxide 24 Anion Gap 11 BUN 46 H Creatinine 1.61 H Est GFR ( Amer) 38 L Glucose 83 Lactic Acid 1.7 Calcium 6.9 L* Magnesium 1.7 Total Bilirubin 1.1 AST 41 H Alkaline Phosphatase 79 Total Protein 5.3 L Albumin 2.4 L Triglycerides 132 Cholesterol 94.60 LDL Cholesterol Direct 42 VLDL Cholesterol 26.0 HDL Cholesterol 17 L TSH Urine Color Urine Appearance Urine pH Ur Specific [place] Urine Protein Urine Glucose (UA) Urine Ketones Urine Blood Urine RBC (Auto) 08/18/19 06:30 WBC RBC Hgb Hct MCV MCH MCHC RDW Plt Count Seg Neutrophils % VBG pH VBG pCO2 VBG HCO3 VBG Base Excess Sodium Potassium Chloride Carbon Dioxide Anion Gap BUN Creatinine Est GFR ( Amer) Glucose Lactic Acid 1.2 Calcium Magnesium Total Bilirubin AST Alkaline Phosphatase Total Protein Albumin Triglycerides Cholesterol LDL Cholesterol Direct VLDL Cholesterol HDL Cholesterol TSH Urine Color Urine Appearance Urine pH Ur Specific [place] Urine Protein Urine Glucose (UA) Urine Ketones Urine Blood Urine RBC (Auto) 08/17/19 08/17/19 16:38 16:38 Troponin I 0.067 NT-Pro-B Natriuret Pep 5180 H Impressions: Chest X-Ray 08/17/19 15:26 IMPRESSION: NO SIGNIFICANT RADIOGRAPHIC FINDING IN THE CHEST. Assessment and Plan - Diagnosis (1) New onset atrial fibrillation Is this a current diagnosis for this admission?: Yes Plan: Rate control. Not anticoagulated. New onset A. fib RVR. CHADs Score 4. Chronic anticoagulation indicated. Continue telemetry, IV Cardizem, switch to p.o. once rate control. Neurology consulted. Recommendation pending. (2) ANJELICA (acute kidney injury) Is this a current diagnosis for this admission?: Yes Plan: Prerenal. Improving. Nonoliguric. Normal urine. Electrolytes WNL except for low potassium. Most likely due to dehydration caused by several days of nausea vomiting and diarrhea. Cautious volume resuscitation guided by volume status, avoid nephrotoxic meds, monitor volume status and electrolytes replace as needed. (3) Acute systolic heart failure Is this a current diagnosis for this admission?: Yes Plan: Denies any chest pain. Denies any history of CAD. SPO2 WNL. Clear lungs on physical examination. Likely due to acute onset A. fib RVR. Admit to telemetry, cardiac diet, PA, beta-blockers. Consider IV diuretics once renal function improves or if there are signs of hypervolemia. (4) Cellulitis of right lower extremity Is this a current diagnosis for this admission?: Yes Plan: Improving. Erythema and swelling moving distally. Still has erythema from mid thigh to right foot. No active discharge. Neurovascularly intact. No collection appreciated. Continue empiric broad-spectrum IV antibiotics. Low blood culture. Bilateral venous Doppler ordered. Pending results. (5) Hypertension Is this a current diagnosis for this admission?: Yes Plan: Restart home meds. Adjust meds as needed. (6) SIRS (systemic inflammatory response syndrome) Is this a current diagnosis for this admission?: Yes Plan: Leukocytosis improving. Afebrile. Lactic acid WNL. Presented with with neutrophil leukocytosis and bandemia, elevated lactic acid, ANJELICA, mildly elevated liver function. Most likely to underlying cellulitis. Continue cautious volume resuscitation guided by volume status. Empiric broad-spectrum IV antibiotics to be changed to p.o. once symptomatic i mprovement or culture results available. Blood cultures negative so far. Follow-up blood culture. (7) Nausea vomiting and diarrhea Is this a current diagnosis for this admission?: Yes Plan: Likely viral gastroenteritis. Resolved at the moment. Denies any recent sick contact. Cautious volume resuscitation guided by volume status. Monitor electrolytes and replace as needed. (8) Skull lesion Is this a current diagnosis for this admission?: Yes Plan: She has a skin lesion at the left restorationist which is about 15 x 15. Skin lesion is very necrotic and foul-smelling with no clear discharge. Patient is very guarded about it and likes to keep it covered. When asked about it she does not provide much information for the fact that it has been evaluated by several doctors and she has had it for very long time and is nonoperable. Continue wound care.
[2019-08-18] MEDS: FERROUS SULFATE 325 MG TABLET PO SCH (17:12)
[2019-08-18] MEDS: NYSTATIN TOPICAL POWDER 15 GM TP SCH ×2 (17:12→23:09)
[2019-08-18] MEDS: CALCIUM CARBONATE 250 MG/VITAMIN D3 125 UNIT TABLET PO SCH (17:12)
[2019-08-18] MEDS: CALCITRIOL 0.25 MCG CAPSULE PO SCH (17:12)
[2019-08-18] MEDS ORDERED: VITAMIN D3 PO SCH (18:00)
[2019-08-18] MEDS ORDERED: [UNRECOGNIZED DRUG - OTHER] PO SCH (18:00)
[2019-08-18] MEDS ORDERED: CALCIUM CARBONATE PO SCH (18:00)
[2019-08-18] MEDS ORDERED: VANCOMYCIN HCL 1,500 MG in DEXTROSE 5%-WATER 250 ML IV SCH (18:00)
--- NOTE | 2019-08-18 19:28 | RADIOLOGY REPORT (SQ) ---
EXAM DESCRIPTION: VENOUS UNILATERAL LOWER COMPLETED DATE/TIME: 08/18/2019 7:10 pm REASON FOR STUDY: right leg edema, eval for DVT COMPARISON: None. TECHNIQUE: Dynamic and static martinez scale and color images acquired of the right leg venous system. S elected spectral images acquired with additional compression and augmentation maneuvers. The contrala teral common femoral vein and saphenofemoral junction were also imaged. Images stored on PACS. LIMITATIONS: Portions of distal right superficial femoral vein are not visualized. FINDINGS: COMMON FEMORAL: Normal phasicity, compression and augmentation. No visualized echogenic ma terial on martinez scale. No defects on color images. FEMORAL: Normal compression and augmentation. No visualized echogenic material on martinez scale. No defe cts on color images. POPLITEAL: Normal compression, augmentation. No visualized echogenic material on martinez scale. No defec ts on color images. CALF VESSELS: Normal compression, augmentation. No visualized echogenic material on martinez scale. No de fects on color images. GSV and SSV: Normal compression, augmentation. No visualized echogenic material on martinez scale. No def ects on color images. ANY DEEP VENOUS INSUFFICIENCY: Not evaluated. ANY EVIDENCE OF POPLITEAL CYST: No. OTHER: No other significant finding. CONTRALATERAL COMMON FEMORAL VEIN AND SAPHENOFEMORAL JUNCTION: Normal phasicity, compression and augmentation. No visualized echogenic material on martinez scale. No de fects on color images. IMPRESSION: Portions of distal right superficial femoral vein are not visualized.No DVT identified. TECHNICAL DOCUMENTATION: JOB ID: [id number] [id number] 2010 [employer]- All Rights Reserved Reading location - IP/workstation name: [email or web address] MD
[2019-08-19] MEDS: NYSTATIN TOPICAL POWDER 15 GM TP SCH ×3 (06:00→22:00)
[2019-08-19 06:11] LABS: HEMATOCRIT 25.6 % (36.0-47.0); HEMOGLOBIN 8.8 g/dL (12.0-15.5); MEAN CORPUSCULAR HEMOGLOBIN 27.9 pg (27.0-33.4); MEAN CORPUSCULAR HGB CONC 34.2 g/dL (32.0-36.0); MEAN CORPUSCULAR VOLUME 81 fl (80-97); PLATELET COUNT 163 10^3/uL (150-450); RED BLOOD COUNT 3.15 10^6/uL (3.72-5.28)
[2019-08-19] MEDS: HEPARIN SOD (PORCINE) 5,000 UNIT/ML 1 ML VIAL SUBCUT SCH ×3 (06:15→22:00)
[2019-08-19 06:28] LABS: ALBUMIN 2.1 g/dL (3.5-5.0); ALKALINE PHOSPHATASE 84 U/L (38-126); ANION GAP 10 (5-19); ASPARTATE AMINO TRANSFERASE 28 U/L (14-36); BILIRUBIN,DIRECT 0.4 mg/dL (0.0-0.4); BILIRUBIN,TOTAL 0.6 mg/dL (0.2-1.3); BLOOD UREA NITROGEN 39 mg/dL (7-20); CARBON DIOXIDE 21 mmol/L (22-30); CHLORIDE 103 mmol/L (98-107); GLUCOSE 90 mg/dL (75-110); POTASSIUM 3.2 mmol/L (3.6-5.0); TOTAL PROTEIN 4.9 g/dL (6.3-8.2)
[2019-08-19 06:34] LABS: ABSOLUTE LYMPHOCYTES# (MANUAL) 0.5 10^3/uL (0.5-4.7); ABSOLUTE MONOCYTES # (MANUAL) 0.5 10^3/uL (0.1-1.4); BAND NEUTROPHILS % (MANUAL) 1 % (3-5); BASOPHILS % (MANUAL) 0 % (0-2); EOSINOPHILS % (MANUAL) 0 % (0-6); LYMPHOCYTES % (MANUAL) 3 % (13-45); MONOCYTES % (MANUAL) 3 % (3-13); SEGMENTED NEUTROPHILS % (MAN) 93 % (42-78); TOTAL CELLS COUNTED 100
[2019-08-19 06:35] LABS: ANISOCYTOSIS 1+; TOXIC GRANULATION 1+
[2019-08-19 06:36] LABS: OVALOCYTES SLIGHT; PLATELET COMMENT ADEQUATE; POIKILOCYTOSIS SLIGHT; TEAR DROP CELLS SLIGHT
[2019-08-19 06:43] LABS: CALCIUM 6.5 mg/dL (8.4-10.2)
--- NOTE | 2019-08-19 08:28 | EKG REPORT ---
SEVERITY:- ABNORMAL ECG - ATRIAL FIBRILLATION MULTIPLE VENTRICULAR PREMATURE COMPLEXES BORDERLINE R WAVE PROGRESSION, ANTERIOR LEADS : Confirmed by: Sylvester Lal MD 19-Aug-2019 08:27:19
[2019-08-19] MEDS: ALBUTEROL SULFATE 0.083% NEB 2.5 MG/3 ML AMPUL NEB SCH ×3 (08:42→20:49)
[2019-08-19] MEDS ORDERED: (PENDING PHARMACY ID) (Magnesium Oxide [Magnesium] 250 MG) PO SCH (10:00)
[2019-08-19] MEDS ORDERED: (PENDING PHARMACY ID) (Levothyroxine Sodium [Synthroid] 137 MCG) PO SCH (10:00)
[2019-08-19] MEDS ORDERED: NORMAL SALINE 1000 ML 1,000 ML IV PRN (10:15)
[2019-08-19] MEDS: VANCOMYCIN HCL 750 MG in DEXTROSE 5%-WATER 250 ML IV SCH ×2 (10:17→23:35)
[2019-08-19] MEDS: CEFEPIME 1 GM/D5W RTU 1 GM/50 ML RTUPB IV SCH ×2 (10:18→23:00)
[2019-08-19] MEDS: ALBUMIN HUMAN 12.5 GM/50 ML RTUINJ IV SCH ×2 (10:18→10:33)
[2019-08-19] MEDS: ASPIRIN 81 MG TABLET, CHEWABLE PO SCH (10:19)
[2019-08-19] MEDS: MAGNESIUM OXIDE 400 MG TABLET PO SCH (10:19)
[2019-08-19] MEDS: FERROUS SULFATE 325 MG TABLET PO SCH ×3 (10:19→17:14)
[2019-08-19] MEDS: CALCITRIOL 0.25 MCG CAPSULE PO SCH ×2 (10:19→17:14)
--- NOTE | 2019-08-19 10:21 | PDOC PROGRESS REPORT ---
Subjective Progress Note for:: 08/19/19 Subjective:: 68 year old female has medical history of hypertension, thyroid cancer status post surgery and chemoradiation, left pentecostal extensive necrotic lesion that the patient describes as nonoperable but does not provide much information, brought to ED for evaluation of right lower extremity pain and swelling. Patient is accompanied by Vashti her personal friend who happens to be a nurse who is also providing much of the history, stating that patient has been having nausea vomiting diarrhea for the last week, which is currently resolved at the time patient noticed that her right lower extremity was becoming erythematous below the knee, but 3 days later it progressed proximally all the way to the inguinal fold accompanied with swelling and tenderness. Patient also noted that she is feeling weaker than usual which is progressively getting worse accompanied with shortness of breath on exertion. Denies any chest pain, palpitation, orthopnea, paroxysmal nocturnal dyspnea, abdominal pain, headache, vision changes, urinary symptoms. In ED she was noted to be in A. fib RVR, elevated lactic acid, leukocytosis, elevated BNP, and ANJELICA. Patient was started on empiric IV antibiotics, volume resuscitation and hospital was consulted for admission. 08/18/2019. No acute events overnight. Patient comfortably resting in bed no apparent distress. Enjoying her breakfast. Complaining of right lower extremity tenderness otherwise denies any fever, chills, nausea, vomiting, diarrhea, constipation, palpitation or any urinary symptoms. [id number]-old female with multiple medical problems including thyroid cancer status post surgery and chemoradiation, left pentecostal extensive necrotic lesion which is nonoperable admitted for bilateral lower extremity swelling and pain. DVT studies came back negative. No acute events in the last 24 hours. Patient is comfortable in the bed communicating well. Reason For Visit: NEW ONSET A FIB RVR ACUTE CHF SIRS Physical Exam Vital Signs: Temp Pulse Resp BP Pulse Ox 97.4 F 99 19 107/41 L 97 08/19/19 07:35 08/19/19 07:35 08/19/19 07:35 08/19/19 08:00 08/19/19 07:35 Intake & Output 08/18/19 08/19/19 08/20/19 06:59 06:59 06:59 Intake Total 3297 3882 Output Total 350 675 Balance 2947 3207 Weight 100.1 kg General appearance: PRESENT: no acute distress, obese Head exam: PRESENT: atraumatic Eye exam: PRESENT: PERRLA Mouth exam: PRESENT: moist, tongue midline Teeth exam: PRESENT: poor dentation Neck exam: ABSENT: carotid bruit, JVD, lymphadenopathy, thyromegaly Respiratory exam: PRESENT: decreased breath sounds Cardiovascular exam: PRESENT: irregular rhythm, tachycardia GI/Abdominal exam: PRESENT: normal bowel sounds, soft. ABSENT: distended, guarding, mass, organolmegaly, rebound, tenderness Rectal exam: PRESENT: deferred Extremities exam: PRESENT: +1 edema, other - Neck erythematous skin changes present in both lower extremities. Neurological exam: PRESENT: alert, awake, oriented to person, oriented to place, oriented to time, oriented to situation, CN II-XII grossly intact. ABSENT: motor sensory deficit Results Laboratory Results: 08/19/19 05:53 08/19/19 05:53 08/19/19 08/19/19 05:53 05:53 WBC 16.0 H RBC 3.15 L Hgb 8.8 L Hct 25.6 L MCV 81 MCH 27.9 MCHC 34.2 RDW 16.0 H Plt Count 163 Seg Neutrophils % Not Reportable Sodium 134.4 L Potassium 3.2 L Chloride 103 Carbon Dioxide 21 L Anion Gap 10 BUN 39 H Creatinine 1.30 H Est GFR ( Amer) 49 L Glucose 90 Calcium 6.5 L* Total Bilirubin 0.6 AST 28 Alkaline Phosphatase 84 Total Protein 4.9 L Albumin 2.1 L 08/17/19 17:19 Catheterized Urine Urine Culture - Final Klebsiella Pneumoniae 08/17/19 08/17/19 16:38 16:38 Troponin I 0.067 NT-Pro-B Natriuret Pep 5180 H Impressions: Chest X-Ray 08/17/19 15:26 IMPRESSION: NO SIGNIFICANT RADIOGRAPHIC FINDING IN THE CHEST. Venous Doppler Study 08/18/19 00:00 IMPRESSION: Portions of distal right superficial femoral vein are not visualized.No DVT identified. Assessment and Plan - Diagnosis (1) New onset atrial fibrillation Is this a current diagnosis for this admission?: Yes Plan: Rate control. Not anticoagulated. New onset A. fib RVR. CHADs Score 4. Chronic anticoagulation indicated. Continue telemetry, IV Cardizem, switch to p.o. once rate control. Neurology consulted. Recommendation pending. 08/[id number]-old female admitted with new onset atrial fibrillation. Cardiology consult was stated. Presently on IV Cardizem drip. In A. fib heart rate in the 80s. echoCardiogram was requested report is pending. Plan heparin 5000 units subcu every 8 hours and also on aspirin. (2) ANJELICA (acute kidney injury) Is this a current diagnosis for this admission?: Yes Plan: Prerenal. Improving. Nonoliguric. Normal urine. Electrolytes WNL except for low potassium. Most likely due to dehydration caused by several days of nausea vomiting and diarrhea. Cautious volume resuscitation guided by volume status, avoid nephrotoxic meds, monitor volume status and electrolytes replace as needed. 08/19/2019-patient admitted with acute kidney injury creatinine is improved from 1.61 to 1.3. At the time of admission is 1.87. Improving. (3) Acute systolic heart failure Is this a current diagnosis for this admission?: Yes Plan: Denies any chest pain. Denies any history of CAD. SPO2 WNL. Clear lungs on physical examination. Likely due to acute onset A. fib RVR. Admit to telemetry, cardiac diet, PA, beta-blockers. Consider IV diuretics once renal function improves or if there are signs of hypervolemia. 08/19/2019-echocardiogram was requested report is pending. Patient is presently on IV fluids blood pressure is 88/40. He is receiving normal saline at 150 cc/h. Watch for the fluid overload. Rate of IV fluids decreased to 75 cc/h. (4) Cellulitis of right lower extremity Is this a current diagnosis for this admission?: Yes Plan: Improving. Erythema and swelling moving distally. Still has erythema from mid thigh to right foot. No active discharge. Neurovascularly intact. No collection appreciated. Continue empiric broad-spectrum IV antibiotics. Low blood culture. Bilateral venous Doppler ordered. Pending results. 08/19/2018-patient admitted with right lower leg extremity swelling DVT studies are negative. WBC count improved to 16,000 presently on IV cefepime and vancomycin urine culture is showing Klebsiella pneumonia. (5) SIRS (systemic inflammatory response syndrome) Is this a current diagnosis for this admission?: Yes Plan: Leukocytosis improving. Afebrile. Lactic acid WNL. Presented with with neutrophil leukocytosis and bandemia, elevated lactic acid, ANJELICA, mildly elevated liver function. Most likely to underlying cellulitis. Continue cautious volume resuscitation guided by volume status. Empiric broad-spectrum IV antibiotics to be changed to p.o. once symptomatic improvement or culture results available. Blood cultures negative so far. Follow-up blood culture. 08/19/2018-patient admitted with elevated WBC count, lactic acid within normal limits and urine culture came back positive for Klebsiella still hypotensive may be meeting the criteria for sepsis. (6) Nausea vomiting and diarrhea Is this a current diagnosis for this admission?: Yes Plan: Likely viral gastroenteritis. Resolved at the moment. Denies any recent sick contact. Cautious volume resuscitation guided by volume status. Monitor electrolytes and replace as needed. 08/19/2019-patient admitted with nausea vomiting and diarrhea which was resolved. No complaints of nausea vomiting this morning. (7) Hypotension Is this a current diagnosis for this admission?: Yes Plan: 08/19/2019-patient latest blood pressure is 107/40. Receiving IV fluids normal saline 150 cc/h. Decrease the IV fluids to 75 cc/h to watch for the fluid overload. (8) Hypocalcemia Is this a current diagnosis for this admission?: Yes Plan: 08/19/2019-serum calcium is 6.5 with serum albumin of 2.1 corrected calcium is within normal limits. (9) Hypoalbuminemia Is this a current diagnosis for this admission?: Yes Plan: 08/19/2019-serum albumin is 2.1 today to give albumin supplementation today. (10) Obesity (BMI 30.0-34.9) Is this a current diagnosis for this admission?: No Plan: 08/19/2019-patient's BMI is more than 31 diet exercise weight loss lifestyle modifications discussed with the patient. (11) UTI (urinary tract infection) Is this a current diagnosis for this admission?: Yes Plan: 08/19/2024 urine culture is positive for Klebsiella pneumonia on ceftriaxone and vancomycin. Plan is to continue the antibiotic therapy at this time. (12) Hypokalemia Is this a current diagnosis for this admission?: Yes Plan: 08/19/2019-serum sodium is 3.2 hypokalemia most likely secondary to poor oral inta ke to give 40 mg of p.o. potassium.
[2019-08-19] MEDS: FAMOTIDINE 20 MG TABLET PO SCH ×2 (10:33→22:00)
[2019-08-19] MEDS: CALCIUM CARBONATE 250 MG/VITAMIN D3 125 UNIT TABLET PO SCH ×2 (15:25→17:14)
[2019-08-19] MEDS: LEVOTHYROXINE SODIUM 0.025 MG TABLET PO SCH (15:41)
[2019-08-19] MEDS: LEVOTHYROXINE SODIUM 0.112 MG TABLET PO SCH (15:41)
[2019-08-19] MEDS: DILTIAZEM HCL 30 MG TABLET PO SCH ×2 (17:14→21:45)
--- NOTE | 2019-08-19 19:06 | Progress Note ---
Provider Note Provider Note: CARDIOLOGY PROGRESS NOTE by Dr. basurto S1 on 08/19/2019. SUBJECTIVE: The patient denies any chest pain discomfort. She continues to be in atrial fibrillation. Her ventricular response is much improved and it is in the 90s. She is only Cardizem infusion at 2.5 mg/h. This will be stopped with the patient be placed on oral Cardizem. She denies any chest pain or discomfort. There is no shortness of breath. There is no PND orthopnea. There is no significant bleeding from the bandage leasing lesion on the left temporal area. There is no TIA CVA symptoms. Of note the patient has a lesion that she states that bleeds off and on into the dressing hence patient not a candidate for chronic anticoagulation. Patient also does not want to be on anticoagulation she is aware of the risks of stroke. PHYSICAL EXAMINATION: The patient is mildly obese. In no acute distress. Selected Entries 08/19/19 15:47 Temperature 98.1 F Temperature Oral Source Pulse Rate 90 Respiratory 18 Rate Blood Pressure 109/53 L Blood Pressure 71 Mean BP Location Right Arm BP Position Supine O2 Sat by Pulse 96 Oximetry Oxygen Delivery Room Air Method Head: There is a bandaged area in the left temporal region of the head. This the patient claims to be inoperable lesion the etiology of which is not really known. EYES: Pupils are equal round regular reactive light accommodation. Extraocular movements are normal. There is no conjunctival pallor. There is no scleral icterus. ENT is negative. NECK: Supple. There is no JVD. Carotids are equal there is no bruit. There is no goiter. There is no lymphadenopathy. There is no accessory muscle respiration use. Trachea central. Lungs: Clear to auscultation percussion. Heart: S1-S2 is heard S1 is of variable intensity. There is no S3 gallop. There is no S4 gallop. There is systolic murmur left sternal border and the apex there is no rub. ABDOMEN: Soft. Nontender there is no paraspinal megaly. Bowel sounds well heard. EXTREMITIES: Femorals are diminished. There is no femoral bruits. Leg pulses are difficult to palpate. There is mild chronic pedal lymphedema present bilaterally. There is no cellulitis. There is no cyanosis or clubbing. SHIP SCALER: The patient is conscious awake alert oriented x3 with no focal deficits. PSYCHIATRIC: The patient judgment insight are intact her affect is normal. ECHOCARDIOGRAM is a suboptimal study only limited views obtained the limited views the LV ejection fraction is normal. There is moderate pulmonary hypertension. Please see report. Labs- All tests 24 hr 08/19/19 08/19/19 05:53 05:53 WBC 16.0 H RBC 3.15 L Hgb 8.8 L Hct 25.6 L MCV 81 MCH 27.9 MCHC 34.2 RDW 16.0 H Plt Count 163 Lymph % (Auto) Not Reportable Kimball % (Auto) Not Reportable Eos % (Auto) Not Reportable Baso % (Auto) Not Reportable Absolute Neuts (auto) Not Reportable Absolute Lymphs (auto) Not Reportable Absolute Monos (auto) Not Reportable Absolute Eos (auto) Not Reportable Absolute Basos (auto) Not Reportable Total Counted 100 Seg Neutrophils % Not Reportable Seg Neuts % (Manual) 93 H Band Neutrophils % 1 L Lymphocytes % (Manual) 3 L Monocytes % (Manual) 3 Eosinophils % (Manual) 0 Basophils % (Manual) 0 Abs Neuts (Manual) 15.0 H Abs Lymphs (Manual) 0.5 Abs Monocytes (Manual) 0.5 Absolute Eos (Manual) 0.0 Abs Basophils (Manual) 0.0 Toxic Granulation 1+ Platelet Comment ADEQUATE Poikilocytosis SLIGHT Anisocytosis 1+ Tear Drop Cells SLIGHT Ovalocytes SLIGHT Sodium 134.4 L Potassium 3.2 L Chloride 103 Carbon Dioxide 21 L Anion Gap 10 BUN 39 H Creatinine 1.30 H Est GFR ( Amer) 49 L Est GFR (MDRD) Non-Af 41 L Glucose 90 Calcium 6.5 L* Total Bilirubin 0.6 Direct Bilirubin 0.4 Neonat Total Bilirubin Not Reportable Neonat Direct Bilirubin Not Reportable Neonat Indirect Bili Not Reportable AST 28 ALT 11 Alkaline Phosphatase 84 Total Protein 4.9 L Albumin 2.1 L Chest X-Ray 08/17/19 15:26 IMPRESSION: NO SIGNIFICANT RADIOGRAPHIC FINDING IN THE CHEST. Venous Doppler Study 08/18/19 00:00 IMPRESSION: Portions of distal right superficial femoral vein are not visualized.No DVT identified. IMPRESSION/RECOMMENDATION: 1. HEAD: Is atraumatic normocephalic. EYES: Pupils are equal round regular reactive to light and accommodation. There is no clinical pallor. There is no scleral icterus. External ocular movements are normal. EARS: Tympanic membranes are intact. External auditory canals are clear. NOSE: Nasal mucous membranes are not inflamed. There is no deviated nasal septum. MOUTH: Mucous membranes of mouth are moist. Tongue is moist. There is no ulcers. There is no bleeding from the gums. THROAT: There is no redness of the oropharynx. There is no exudates in the throat. SKIN: There is no petechia or ecchymosis. There is no skin rashes or skin lesions. NECK: Is supple. There is no JVD. Carotids are equal there is no bruits. There is no lymphadenopathy. There is no goiter. There is no accessory muscles of respiration in use. Trachea central. LUNGS: There is diminished air entry and prolonged expiration. On percussion there is hyperresonance. There is scattered rhonchi present. There is no rales or wheezing. There is no chest wall tenderness on palpation. HEART: S1-S2 is heard. S1 is of variable intensity. There is no S3 gallop. There is no S4 gallop. There is systolic murmur left sternal border and the apex, without radiation. There is no murmur of aortic stenosis. Prosthetic aortic valve click heard crisply. There is no aortic regurgitation murmur.. There is no rub. ABDOMEN: Is Nontender. There is no hepatosplenomegaly. Bowel sounds are well heard. EXTREMITIES: Femorals are deep. Femorals are slightly diminished. There is no femoral bruits. There is no pedal edema. There is no DVT or cellulitis. Leg pulses are diminished. There is no cyanosis or clubbing. Capillary refill is normal. There is no calf tenderness. SHIP SCALER: The patient is conscious awake alert oriented x3 with no focal deficits. PSYCHIATRIC: The patient judgment and insight are intact her affect is normal. Echocardiogram: Very suboptimal study which is subject to severe technical limitation. In the limited views there is no wall motion abnormality. In the limited views LBJ fraction is normal. There is moderate pulmonary hypertension. Please see report EKG: Shows atrial fibrillation with rapid ventricular response. Borderline left axis deviation. Borderline poor R wave progression anterior leads. Labs- All tests 24 hr 08/19/19 08/19/19 05:53 05:53 WBC 16.0 H RBC 3.15 L Hgb 8.8 L Hct 25.6 L MCV 81 MCH 27.9 MCHC 34.2 RDW 16.0 H Plt Count 163 Lymph % (Auto) Not Reportable Kimball % (Auto) Not Reportable Eos % (Auto) Not Reportable Baso % (Auto) Not Reportable Absolute Neuts (auto) Not Reportable Absolute Lymphs (auto) Not Reportable Absolute Monos (auto) Not Reportable Absolute Eos (auto) Not Reportable Absolute Basos (auto) Not Reportable Total Counted 100 Seg Neutrophils % Not Reportable Seg Neuts % (Manual) 93 H Band Neutrophils % 1 L Lymphocytes % (Manual) 3 L Monocytes % (Manual) 3 Eosinophils % (Manual) 0 Basophils % (Manual) 0 Abs Neuts (Manual) 15.0 H Abs Lymphs (Manual) 0.5 Abs Monocytes (Manual) 0.5 Absolute Eos (Manual) 0.0 Abs Basophils (Manual) 0.0 Toxic Granulation 1+ Platelet Comment ADEQUATE Poikilocytosis SLIGHT Anisocytosis 1+ Tear Drop Cells SLIGHT Ovalocytes SLIGHT Sodium 134.4 L Potassium 3.2 L Chloride 103 Carbon Dioxide 21 L Anion Gap 10 BUN 39 H Creatinine 1.30 H Est GFR ( Amer) 49 L Est GFR (MDRD) Non-Af 41 L Glucose 90 Calcium 6.5 L* Total Bilirubin 0.6 Direct Bilirubin 0.4 Neonat Total Bilirubin Not Reportable Neonat Direct Bilirubin Not Reportable Neonat Indirect Bili Not Reportable AST 28 ALT 11 Alkaline Phosphatase 84 Total Protein 4.9 L Albumin 2.1 L Chest X-Ray 08/17/19 15:26 IMPRESSION: NO SIGNIFICANT RADIOGRAPHIC FINDING IN THE CHEST. Venous Doppler Study 08/18/19 00:00 IMPRESSION: Portions of distal right superficial femoral vein are not visualized.No DVT identified. IMPRESSION/RECOMMENDATION: 1. Atrial fibrillation with demand rapid ventricular response on admission. At present atrial fibrillation ventricular response is much well controlled. We will stop the patient's Cardizem infusion and start the patient on p.o. Cardizem at 30 mg p.o. every 6 hours and subsequently transition to a long-acting preparation. As mentioned earlier in view of the same extensive lesion in the left catholic of the patient which the patient states bleeds off and on, which makes it high risk for the patient to be on chronic anticoagulation. Hence patient not a candidate for chronic anticoagulation. This has been discussed with the patient. She is agreeable. 2. Sepsis: Possibly the etiology of the infection is either urinary tract infection or the lesion in the left catholic. Continue antibiotics. 3. Acute kidney renal failure. Renal function improving the GFR has come up from 27-41. Continue hydration and current antibiotics. Avoid nephrotoxic drugs 4. Hypertension: Continue to watch blood pressure. 5. Hypothyroidism: Continue thyroid replacement 6. Significant extensive left temporal lesion on the head the etiology of which is not known. Findings discussed with the patient. Medications reviewed. Medications adjusted. Medical regimen and management plan discussed with attending physician on the case. Medical decision making is of high complexity. 40 minutes spent on this patient with more than 50% time spent in direct patient care. Will follow.
--- NOTE | 2019-08-19 22:06 | XCELERA REPORT ---
[address] [address] Transthoracic Echocardiogram Report Name: SCOOBY BLAKE V Age: 68 yrs Gender: Female : 1950 Patient Status: Inpatient Patient Location: [address] [place], [place] [address] Study Date: 08/19/2019 09:45 AM Height: 70 in Weight: 220 lb BSA: 2.2 m2 Procedure: A two-dimensional transthoracic echocardiogram with color flow and Doppler was performed. Study Quality: Poor. Poor endocardialvisualisation THIS STUDY INTERPRETATION IS SUBJECT TO SEVERE TECHNICAL LIMITATION. Reason For Study: chf History: CHF. Ordering Physician: STEVEN CARVALHO Performed By: Trey Zarate Interpretation Summary Poor endocardialvisualisation THIS STUDY INTERPRETATION IS SUBJECT TO SEVERE TECHNICAL LIMITATION. The left ventricle is grossly normal size. There is normal left ventricular wall thickness. No True apical 2 chamber views obtained.Hence cannot comment on the apical anterior , the basal anterior, the basal inferior and apical inferior burks.The mid anterior , the mid inferior and the rest of the LV burks contract normally. .LVEF is normal and is greater than 65% in the limited views.Not a good study to assess ASD ,VSD, or PFO. The right ventricle is not well visualized secondary to technical limitations Right atrium not well visualized secondary to technical limitations The left atrial size is normal. There is no evidence of mitral valve prolapse. There is no mitral valve stenosis. There is a trace amount of mitral regurgitation There is no aortic valvular vegetation. There is no aortic valve stenosis There is aortic sclerosis without aortic stenosis. There is no LVOT obstruction. No aortic regurgitation is present. There is no tricuspid stenosis. There is a trace amount of tricuspid regurgitation There is moderate pulmonary hypertension by echo RVSP is 53 to 58 mm of Hg , with RA mean of 15 to 20. There is no pulmonic valvular stenosis. There is a trace amount of pulmonic regurgitation The inferior vena cava appeared dilated and decreased < 50% with respiration (RAP 15-20 mmHg) There is no pericardial effusion. MMode/2D Measurements & Calculations RVDd: 3.6 cm LVIDd: 5.1 cm FS: 36.4 % Ao root diam: 3.0 cm IVSd: 0.82 cm LVIDs: 3.2 cm EDV(Teich): 123.9 ml Ao root area: 6.9 cm2 LVPWd: 0.92 cm ESV(Teich): 42.4 ml LA dimension: 4.0 cm EF(Teich): 65.8 % Doppler Measurements & Calculations MV E max awilda: MV P1/2t max awilda: Ao V2 max: LV V1 max P.0 cm/sec 135.7 cm/sec 171.6 cm/sec 7.2 mmHg MV P1/2t: 61.6 msec Ao max PG: LV V1 max: MVA(P1/2t): 3.6 cm2 11.8 mmHg 134.5 cm/sec MV dec slope: LV dP/dt: 2272 mmHg/s 645.7 cm/sec2 MV dec time: 0.21 sec PA V2 max: TR max awilda: MV P1/2t-pr_phl: 93.2 cm/sec 309.5 cm/sec 61.6 msec PA max P.5 mmHgTR max P.3 mmHg Left Ventricle The left ventricle is grossly normal size. There is normal left ventricular wall thickness. No True apical 2 chamber views obtained.Hence cannot comment on the apical anterior , the basal anterior, the basal inferior and apical inferior burks.The mid anterior , the mid inferior and the rest of the LV burks contract normally. .LVEF is normal and is greater than 65% in the limited views.Not a good study to assess ASD ,VSD, or PFO. LV diastolic function could not be adequately assessed due to atrial fibrilation. Right Ventricle The right ventricle is not well visualized secondary to technical limitations. Atria Right atrium not well visualized secondary to technical limitations. The left atrial size is normal. Mitral Valve There is no evidence of mitral valve prolapse. There is no mitral valve stenosis. There is a trace amount of mitral regurgitation. Aortic Valve There is no aortic valvular vegetation. There is no aortic valve stenosis. There is aortic sclerosis without aortic stenosis. There is no LVOT obstruction. No aortic regurgitation is present. Tricuspid Valve There is no tricuspid stenosis. There is a trace amount of tricuspid regurgitation. There is moderate pulmonary hypertension by echo. RVSP is 53 to 58 mm of Hg , with RA mean of 15 to 20. Pulmonic Valve There is no pulmonic valvular stenosis. There is a trace amount of pulmonic regurgitation. Great Vessels The aortic root is not well visualized but is probably normal size. The inferior vena cava appeared dilated and decreased < 50% with respiration (RAP 15-20 mmHg). Effusions There is no pericardial effusion. : STEVEN CARVALHO Lakshmi
[2019-08-20] MEDS: DILTIAZEM HCL 30 MG TABLET PO SCH ×2 (03:57→09:18)
[2019-08-20 05:29] LABS: ABSOLUTE EOSINOPHILS # (AUTO) 0.2 10^3/uL (0.0-0.6); ABSOLUTE LYMPHOCYTES (AUTO) 0.6 10^3/uL (0.5-4.7); ABSOLUTE MONOCYTES (AUTO) 0.5 10^3/uL (0.1-1.4); ABSOLUTE NEUT (AUTO) 9.8 10^3/uL (1.7-8.2); BASOPHILS % (AUTO) 0.4 % (0-2); EOSINOPHILS % (AUTO) 1.5 % (0-6); HEMATOCRIT 26.6 % (36.0-47.0); HEMOGLOBIN 8.9 g/dL (12.0-15.5); LYMPHOCYTES % (AUTO) 5.2 % (13-45); MEAN CORPUSCULAR HEMOGLOBIN 27.5 pg (27.0-33.4); MEAN CORPUSCULAR HGB CONC 33.5 g/dL (32.0-36.0); MEAN CORPUSCULAR VOLUME 82 fl (80-97); MONOCYTES % (AUTO) 4.9 % (3-13); PLATELET COUNT 180 10^3/uL (150-450); RED BLOOD COUNT 3.24 10^6/uL (3.72-5.28); RED CELL DISTRIBUTION WIDTH 15.9 % (11.5-14.0); TOTAL CELLS COUNTED % (AUTO) 100 %; WHITE BLOOD COUNT 11.1 10^3/uL (4.0-10.5)
[2019-08-20 05:51] LABS: ALBUMIN 2.3 g/dL (3.5-5.0); ALKALINE PHOSPHATASE 93 U/L (38-126); ANION GAP 10 (5-19); ASPARTATE AMINO TRANSFERASE 21 U/L (14-36); BILIRUBIN,DIRECT 0.2 mg/dL (0.0-0.4); BILIRUBIN,TOTAL 0.4 mg/dL (0.2-1.3); BLOOD UREA NITROGEN 29 mg/dL (7-20); CARBON DIOXIDE 22 mmol/L (22-30); CHLORIDE 105 mmol/L (98-107); GLUCOSE 82 mg/dL (75-110); POTASSIUM 3.2 mmol/L (3.6-5.0); TOTAL PROTEIN 5.1 g/dL (6.3-8.2)
[2019-08-20] MEDS: LEVOTHYROXINE SODIUM 0.112 MG TABLET PO SCH (06:37)
[2019-08-20] MEDS: LEVOTHYROXINE SODIUM 0.025 MG TABLET PO SCH (06:37)
[2019-08-20] MEDS: HEPARIN SOD (PORCINE) 5,000 UNIT/ML 1 ML VIAL SUBCUT SCH ×3 (06:37→21:59)
[2019-08-20] MEDS: NYSTATIN TOPICAL POWDER 15 GM TP SCH ×3 (06:38→21:58)
[2019-08-20] MEDS: ALBUTEROL SULFATE 0.083% NEB 2.5 MG/3 ML AMPUL NEB SCH ×3 (07:58→20:17)
--- NOTE | 2019-08-20 08:09 | EKG REPORT ---
SEVERITY:- ABNORMAL ECG - ATRIAL FIBRILLATION, V-RATE 67-[address]-T CHANGES ANTERIOR LEADS : Confirmed by: Sylvester Lal MD 20-Aug-2019 08:08:38
[2019-08-20] MEDS: FERROUS SULFATE 325 MG TABLET PO SCH ×3 (08:25→18:12)
--- NOTE | 2019-08-20 09:10 | PDOC PROGRESS REPORT ---
Subjective Progress Note for:: 08/20/19 Subjective:: 68 year old female has medical history of hypertension, thyroid cancer status post surgery and chemoradiation, left mu-ism extensive necrotic lesion that the patient describes as nonoperable but does not provide much information, brought to ED for evaluation of right lower extremity pain and swelling. Patient is accompanied by Vashti her personal friend who happens to be a nurse who is also providing much of the history, stating that patient has been having nausea vomiting diarrhea for the last week, which is currently resolved at the time patient noticed that her right lower extremity was becoming erythematous below the knee, but 3 days later it progressed proximally all the way to the inguinal fold accompanied with swelling and tenderness. Patient also noted that she is feeling weaker than usual which is progressively getting worse accompanied with shortness of breath on exertion. Denies any chest pain, palpitation, orthopnea, paroxysmal nocturnal dyspnea, abdominal pain, headache, vision changes, urinary symptoms. In ED she was noted to be in A. fib RVR, elevated lactic acid, leukocytosis, elevated BNP, and ANJELICA. Patient was started on empiric IV antibiotics, volume resuscitation and hospital was consulted for admission. 08/18/2019. No acute events overnight. Patient comfortably resting in bed no apparent distress. Enjoying her breakfast. Complaining of right lower extremity tenderness otherwise denies any fever, chills, nausea, vomiting, diarrhea, constipation, palpitation or any urinary symptoms. 08/[id number]-rztg-old female with multiple medical problems including thyroid cancer status post surgery and chemoradiation, left mu-ism extensive necrotic lesion which is nonoperable admitted for bilateral lower extremity swelling and pain. DVT studies came back negative. No acute events in the last 24 hours. Patient is comfortable in the bed communicating well. 08/[id number]-old female with multiple medical problems including thyroid cancer status post surgery, chemo and radiation, left mu-ism extensive necrotic lesion which is nonoperable as per the patient admitted for bilateral lower extremity swelling and pain. DVT studies came back negative. Also found to have a new onset A. fib with RVR. Presently on a diltiazem 30 mg every 6 hours. Heart rate in the 90s. In sinus rhythm. Patient says she is feeling better. Urine culture is positive for Klebsiella pneumonia to continue cefepime. Reason For Visit: NEW ONSET A FIB RVR ACUTE CHF SIRS Physical Exam Vital Signs: Temp Pulse Resp BP Pulse Ox 98.2 F 87 16 110/50 L 97 08/20/19 03:12 08/20/19 08:00 08/20/19 08:00 08/20/19 03:12 08/20/19 08:00 Intake & Output 08/19/19 08/20/19 08/21/19 06:59 06:59 06:59 Intake Total 3882 2334 Output Total 675 1100 Balance 3207 1234 Weight 100.1 kg General appearance: PRESENT: no acute distress, obese Head exam: PRESENT: atraumatic Eye exam: PRESENT: PERRLA Mouth exam: PRESENT: dry mucosa Teeth exam: PRESENT: poor dentation Neck exam: ABSENT: carotid bruit, JVD, lymphadenopathy, thyromegaly Respiratory exam: PRESENT: decreased breath sounds Cardiovascular exam: PRESENT: tachycardia GI/Abdominal exam: PRESENT: normal bowel sounds, soft. ABSENT: distended, guarding, mass, organolmegaly, rebound, tenderness Rectal exam: PRESENT: deferred Extremities exam: PRESENT: +2 edema, other - Erythema of the left lower extremity persisting. Neurological exam: PRESENT: alert, awake, oriented to person, oriented to place, oriented to time, oriented to situation, CN II-XII grossly intact. ABSENT: motor sensory deficit Psychiatric exam: PRESENT: appropriate affect, normal mood. ABSENT: homicidal ideation, suicidal ideation Skin exam: PRESENT: rash Results Laboratory Results: 08/20/19 04:30 08/20/19 04:30 08/20/19 08/20/19 04:30 04:30 WBC 11.1 H RBC 3.24 L Hgb 8.9 L Hct 26.6 L MCV 82 MCH 27.5 MCHC 33.5 RDW 15.9 H Plt Count 180 Seg Neutrophils % 88.0 H Sodium 137.2 Potassium 3.2 L Chloride 105 Carbon Dioxide 22 Anion Gap 10 BUN 29 H Creatinine 0.99 Est GFR ( Amer) > 60 Glucose 82 Calcium 7.0 L* Magnesium 2.0 Total Bilirubin 0.4 AST 21 Alkaline Phosphatase 93 Total Protein 5.1 L Albumin 2.3 L 08/17/19 17:19 Catheterized Urine Urine Culture - Final Klebsiella Pneumoniae 08/17/19 08/17/19 16:38 16:38 Troponin I 0.067 NT-Pro-B Natriuret Pep 5180 H Impressions: Chest X-Ray 08/17/19 15:26 IMPRESSION: NO SIGNIFICANT RADIOGRAPHIC FINDING IN THE CHEST. Venous Doppler Study 08/18/19 00:00 IMPRESSION: Portions of distal right superficial femoral vein are not visualized.No DVT identified. Assessment and Plan - Diagnosis (1) New onset atrial fibrillation Is this a current diagnosis for this admission?: Yes Plan: Rate control. Not anticoagulated. New onset A. fib RVR. CHADs Score 4. Chronic anticoagulation indicated. Continue telemetry, IV Cardizem, switch to p.o. once rate control. Neurology consulted. Recommendation pending. 08/19/[id number]-nyda-old female admitted with new onset atrial fibrillation. Cardiology consult was stated. Presently on IV Cardizem drip. In A. fib heart rate in the 80s. echoCardiogram was requested report is pending. Plan heparin 5000 units subcu every 8 hours and also on aspirin. 08/20/[id number]-hqul-old female admitted with new onset atrial fibrillation as per Dr. Arcos patient is not a candidate for anticoagulation. Diltiazem drip was discontinued yesterday presently on diltiazem 30 mg every 6 hours. Heart rate in the 90s. Plan is to continue the present management at this time. (2) ANJELICA (acute kidney injury) Is this a current diagnosis for this admission?: Yes Plan: Prerenal. Improving. Nonoliguric. Normal urine. Electrolytes WNL except for low potassium. Most likely due to dehydration caused by several days of nausea vomiting and diarrhea. Cautious volume resuscitation guided by volume status, avoid nephrotoxic meds, monitor volume status and electrolytes replace as needed. 08/19/2019-patient admitted with acute kidney injury creatinine is improved from 1.61 to 1.3. At the time of admission is 1.87. Improving. 08/20/2019 admission creatinine is 1.89 and today's creatinine is 0.99. Acute kidney injury most likely secondary to prerenal causes resolved. Presently on normal saline at 50 cc/h. (3) Acute systolic heart failure Is this a current diagnosis for this admission?: Yes Plan: Denies any chest pain. Denies any history of CAD. SPO2 WNL. Clear lungs on physical examination. Likely due to acute onset A. fib RVR. Admit to telemetry, cardiac diet, PA, beta-blockers. Consider IV diuretics once renal function improves or if there are signs of hypervolemia. 08/19/2019-echocardiogram was requested report is pending. Patient is presently on IV fluids blood pressure is 88/40. He is receiving normal saline at 150 cc/h. Watch for the fluid overload. Rate of IV fluids decreased to 75 cc/h. 08/20/2019-patient blood pressure is improved to 110/60. Presently on normal saline at 50 cc/h. On Cardizem 30 mg every 6 hours for control of the rate. Echocardiogram indicated EF of 65%. Unable to assess the right heart function because of technical difficulties. (4) Cellulitis of right lower extremity Is this a current diagnosis for this admission?: Yes Plan: Improving. Erythema and swelling moving distally. Still has erythema from mid thigh to right foot. No active discharge. Neurovascularly intact. No collection appreciated. Continue empiric broad-spectrum IV antibiotics. Low blood culture. Bilateral venous Doppler ordered. Pending results. 08/19/2018-patient admitted with right lower leg extremity swelling DVT studies are negative. WBC count improved to 16,000 presently on IV cefepime and vancomycin urine culture is showing Klebsiella pneumonia. 08/20/2019 patient admitted with right lower leg cellulitis, DVT studies are negative. WBC count improved to 11,100. Presently on cefepime. Plan is to continue the antibiotic therapy at this time. (5) SIRS (systemic inflammatory response syndrome) Is this a current diagnosis for this admission?: Yes Plan: Leukocytosis improving. Afebrile. Lactic acid WNL. Presented with with neutrophil leukocytosis and bandemia, elevated lactic acid, ANJELICA, mildly elevated liver function. Most likely to underlying cellulitis. Continue cautious volume resuscitation guided by volume status. Empiric broad-spectrum IV antibiotics to be changed to p.o. once symptomatic improvement or culture results available. Blood cultures negative so far. Follow-up blood culture. 08/19/2018-patient admitted with elevated WBC count, lactic acid within normal limits and urine culture came back positive for Klebsiella still hypotensive may be meeting the criteria for sepsis. 08/20/2019 WBC count is 11,000, urine culture came back positive for Klebsiella , hypotension is resolving and presently on cefepime. Plan is to continue the antibiotic therapy. (6) Nausea vomiting and diarrhea Is this a current diagnosis for this admission?: Yes (7) Hypotension Is this a current diagnosis for this admission?: Yes Plan: 08/19/2019-patient latest blood pressure is 107/40. Receiving IV fluids normal saline 150 cc/h. Decrease the IV fluids to 75 cc/h to watch for the fluid ov erload. 08/20/2019 latest blood pressure is 110/50. On IV fluids normal saline at 60/h. Plan is to continue the IV fluids watch for the fluid overload. (8) Hypocalcemia Is this a current diagnosis for this admission?: Yes Plan: 08/19/2019-serum calcium is 6.5 with serum albumin of 2.1 corrected calcium is within normal limits. 08/20/2019 serum calcium is 7.0 with albumin of 2.3. Corrected serum calcium is within normal limits. (9) Hypoalbuminemia Is this a current diagnosis for this admission?: Yes Plan: 08/19/2019-serum albumin is 2.1 today to give albumin supplementation today. 08/20/2019 serum albumin is 2.3 patient was given albumin supplementation yest josefina. dietery consult will be requested. (10) Obesity (BMI 30.0-34.9) Is this a current diagnosis for this admission?: No (11) UTI (urinary tract infection) Is this a current diagnosis for this admission?: Yes Plan: 08/19/2019 urine culture is positive for Klebsiella pneumonia on cefepime and vancomycin. Plan is to continue the antibiotic therapy at this time. 08/20/2019-urine culture is positive for Klebsiella pneumonia on cefepime. (12) Hypokalemia Is this a current diagnosis for this admission?: Yes Plan: 08/19/2019-serum k is 3.2 hypokalemia most likely secondary to poor oral intake to give 40 mg of p.o. potassium. 08/20/2019 serum potassium is 3.2 to give 40 mg of p.o. potassium today.
[2019-08-20] MEDS: CALCITRIOL 0.25 MCG CAPSULE PO SCH ×2 (09:18→18:12)
[2019-08-20] MEDS: ASPIRIN 81 MG TABLET, CHEWABLE PO SCH (09:18)
[2019-08-20] MEDS: FAMOTIDINE 20 MG TABLET PO SCH ×2 (09:18→21:58)
[2019-08-20] MEDS: MAGNESIUM OXIDE 400 MG TABLET PO SCH (09:18)
[2019-08-20] MEDS: CEFEPIME 1 GM/D5W RTU 1 GM/50 ML RTUPB IV SCH ×2 (09:25→22:05)
[2019-08-20] MEDS: NORMAL SALINE 1000 ML 1,000 ML IV PRN (09:30)
[2019-08-20] MEDS ORDERED: POTASSIUM CHLORIDE 10 MEQ TABLET.ER PO ONE (10:00)
[2019-08-20] MEDS: CALCIUM CARBONATE 250 MG/VITAMIN D3 125 UNIT TABLET PO SCH ×2 (12:03→18:12)
[2019-08-20] MEDS ORDERED: DILTIAZEM HCL 30 MG TABLET PO SCH (15:00)
[2019-08-20] MEDS: DILTIAZEM HCL 60 MG TABLET PO SCH ×2 (18:12→21:57)
--- NOTE | 2019-08-20 20:51 | Progress Note ---
Provider Note Provider Note: CARDIOLOGY PROGRESS NOTE by Dr. Bárbara Arcos on 08/20/2019. 32: The patient states she feels better and less weak. She denies any shortness of breath. There is no chest pain or discomfort. There is no PND orthopnea. She continues to be in atrial fibrillation with a ventricular response much better but still not optimally controlled. Her Cardizem dosage has been increased. She has no TIA CVA symptoms. There is no ventricular arrhythmia seen on the monitor. PHYSICAL EXAMINATION: The patient is mildly obese in no acute distress. Selected Entries 08/20/19 12:11 Temperature 97.6 F Temperature Oral Source Pulse Rate 100 Respiratory 18 Rate Blood Pressure 126/60 H Blood Pressure 82 Mean BP Location Right Arm BP Position Sitting O2 Sat by Pulse 98 Oximetry Oxygen Delivery Room Air Method Head: There is a bandaged area in the left temporal region of the head. This the patient claims to be inoperable lesion the etiology of which is not really known. EYES: Pupils are equal round regular reactive light accommodation. Extraocular movements are normal. There is no conjunctival pallor. There is no scleral icterus. ENT is negative. NECK: Supple. There is no JVD. Carotids are equal there is no bruit. There is no goiter. There is no lymphadenopathy. There is no accessory muscle respiration use. Trachea central. Lungs: Clear to auscultation percussion. Heart: S1-S2 is heard S1 is of variable intensity. There is no S3 gallop. There is no S4 gallop. There is systolic murmur left sternal border and the apex there is no rub. ABDOMEN: Soft. Nontender there is no paraspinal megaly. Bowel sounds well heard. EXTREMITIES: Femorals are diminished. There is no femoral bruits. Leg pulses are difficult to palpate. There is mild chronic pedal lymphedema present bilaterally. There is no cellulitis. There is no cyanosis or clubbing. IT RISK ADVISOR: The patient is conscious awake alert oriented x3 with no focal deficits. PSYCHIATRIC: The patient judgment insight are intact her affect is normal. Labs- All tests 24 hr 08/20/19 08/20/19 04:30 04:30 WBC 11.1 H RBC 3.24 L Hgb 8.9 L Hct 26.6 L MCV 82 MCH 27.5 MCHC 33.5 RDW 15.9 H Plt Count 180 Lymph % (Auto) 5.2 L [place] % (Auto) 4.9 Eos % (Auto) 1.5 Baso % (Auto) 0.4 Absolute Neuts (auto) 9.8 H Absolute Lymphs (auto) 0.6 Absolute Monos (auto) 0.5 Absolute Eos (auto) 0.2 Absolute Basos (auto) 0.0 Seg Neutrophils % 88.0 H Sodium 137.2 Potassium 3.2 L Chloride 105 Carbon Dioxide 22 Anion Gap 10 BUN 29 H Creatinine 0.99 Est GFR ( Amer) > 60 Est GFR (MDRD) Non-Af 56 L Glucose 82 Calcium 7.0 L* Magnesium 2.0 Total Bilirubin 0.4 Direct Bilirubin 0.2 Neonat Total Bilirubin Not Reportable Neonat Direct Bilirubin Not Reportable Neonat Indirect Bili Not Reportable AST 21 ALT 10 Alkaline Phosphatase 93 Total Protein 5.1 L Albumin 2.3 L Chest X-Ray 08/17/19 15:26 IMPRESSION: NO SIGNIFICANT RADIOGRAPHIC FINDING IN THE CHEST. Venous Doppler Study 08/18/19 00:00 IMPRESSION: Portions of distal right superficial femoral vein are not visualized.No DVT identified. IMPRESSION/RECOMMENDATION: 1. Atrial fibrillation with demand rapid ventricular response on admission. At present atrial fibrillation ventricular response is much well controlled. W will increase. Cardizem to 60 mg p.o. every 6 hours and subsequently transition to a long-acting preparation. As mentioned earlier in view of the same exten sive lesion in the left synagogue of the patient which the patient states bleeds off and on, which makes it high risk for the patient to be on chronic anticoagulation. Hence patient not a candidate for chronic anticoagulation. This has been discussed with the patient. She is agreeable. Will change to to a long-acting Cardizem preparation. 2. Sepsis: Possibly the etiology of the infection is either urinary tract infection or the lesion in the left synagogue. Continue antibiotics. 3. Acute kidney renal failure. Renal function improving, and the GFR is improving and is now 56 mL/min.. Continue hydration and current antibiotics. Avoid nephrotoxic drugs 4. Hypertension: Continue to watch blood pressure. 5. Hypothyroidism: Continue thyroid replacement 6. Significant extensive left temporal lesion on the head the etiology of which is not known. Medications reviewed. Medications adjusted in view of the medication adjustment medical decision making is of high complexity. 40 minutes spent as patient more than 50% time spent in direct patient care. Will follow. Discussed medical regimen and management plan with the attending physician on the case. Will follow.
[2019-08-21] MEDS: DILTIAZEM HCL 60 MG TABLET PO SCH (02:58)
[2019-08-21] MEDS: NORMAL SALINE 1000 ML 1,000 ML IV PRN (03:20)
[2019-08-21] MEDS: LEVOTHYROXINE SODIUM 0.112 MG TABLET PO SCH (05:31)
[2019-08-21] MEDS: HEPARIN SOD (PORCINE) 5,000 UNIT/ML 1 ML VIAL SUBCUT SCH ×3 (05:31→22:49)
[2019-08-21] MEDS: LEVOTHYROXINE SODIUM 0.025 MG TABLET PO SCH (05:32)
[2019-08-21] MEDS: NYSTATIN TOPICAL POWDER 15 GM TP SCH ×3 (05:33→22:51)
[2019-08-21 05:52] LABS: ABSOLUTE BASOPHILS # (AUTO) 0.1 10^3/uL (0.0-0.2); ABSOLUTE EOSINOPHILS # (AUTO) 0.3 10^3/uL (0.0-0.6); ABSOLUTE LYMPHOCYTES (AUTO) 0.7 10^3/uL (0.5-4.7); ABSOLUTE MONOCYTES (AUTO) 0.4 10^3/uL (0.1-1.4); ABSOLUTE NEUT (AUTO) 4.9 10^3/uL (1.7-8.2); BASOPHILS % (AUTO) 0.9 % (0-2); EOSINOPHILS % (AUTO) 4.9 % (0-6); HEMATOCRIT 26.1 % (36.0-47.0); HEMOGLOBIN 8.9 g/dL (12.0-15.5); LYMPHOCYTES % (AUTO) 10.6 % (13-45); MEAN CORPUSCULAR HEMOGLOBIN 27.8 pg (27.0-33.4); MEAN CORPUSCULAR HGB CONC 34.1 g/dL (32.0-36.0); MEAN CORPUSCULAR VOLUME 82 fl (80-97); PLATELET COUNT 209 10^3/uL (150-450); RED BLOOD COUNT 3.19 10^6/uL (3.72-5.28); RED CELL DISTRIBUTION WIDTH 16.1 % (11.5-14.0); SEGMENTED NEUTROPHILS % (AUTO) 76.6 % (42-78); TOTAL CELLS COUNTED % (AUTO) 100 %; WHITE BLOOD COUNT 6.4 10^3/uL (4.0-10.5)
[2019-08-21 06:11] LABS: ALBUMIN 2.3 g/dL (3.5-5.0); ALKALINE PHOSPHATASE 92 U/L (38-126); ANION GAP 9 (5-19); ASPARTATE AMINO TRANSFERASE 21 U/L (14-36); BILIRUBIN,DIRECT 0.4 mg/dL (0.0-0.4); BILIRUBIN,TOTAL 0.5 mg/dL (0.2-1.3); BLOOD UREA NITROGEN 22 mg/dL (7-20); CALCIUM 7.2 mg/dL (8.4-10.2); CARBON DIOXIDE 23 mmol/L (22-30); CHLORIDE 107 mmol/L (98-107); GLUCOSE 94 mg/dL (75-110); POTASSIUM 3.5 mmol/L (3.6-5.0); TOTAL PROTEIN 5.2 g/dL (6.3-8.2)
[2019-08-21] MEDS: ALBUTEROL SULFATE 0.083% NEB 2.5 MG/3 ML AMPUL NEB SCH (09:05)
--- NOTE | 2019-08-21 09:29 | PDOC PROGRESS REPORT ---
Subjective Progress Note for:: 08/21/19 Subjective:: 68 year old female has medical history of hypertension, thyroid cancer status post surgery and chemoradiation, left christian extensive necrotic lesion that the patient describes as nonoperable but does not provide much information, brought to ED for evaluation of right lower extremity pain and swelling. Patient is accompanied by Vashti her personal friend who happens to be a nurse who is also providing much of the history, stating that patient has been having nausea vomiting diarrhea for the last week, which is currently resolved at the time patient noticed that her right lower extremity was becoming erythematous below the knee, but 3 days later it progressed proximally all the way to the inguinal fold accompanied with swelling and tenderness. Patient also noted that she is feeling weaker than usual which is progressively getting worse accompanied with shortness of breath on exertion. Denies any chest pain, palpitation, orthopnea, paroxysmal nocturnal dyspnea, abdominal pain, headache, vision changes, urinary symptoms. In ED she was noted to be in A. fib RVR, elevated lactic acid, leukocytosis, elevated BNP, and ANJELICA. Patient was started on empiric IV antibiotics, volume resuscitation and hospital was consulted for admission. 08/18/2019. No acute events overnight. Patient comfortably resting in bed no apparent distress. Enjoying her breakfast. Complaining of right lower extremity tenderness otherwise denies any fever, chills, nausea, vomiting, diarrhea, constipation, palpitation or any urinary symptoms. 08/19/[id number]-vpah-old female with multiple medical problems including thyroid cancer status post surgery and chemoradiation, left christian extensive necrotic lesion which is nonoperable admitted for bilateral lower extremity swelling and pain. DVT studies came back negative. No acute events in the last 24 hours. Patient is comfortable in the bed communicating well. 08/20/[id number]-[id number]-old female with multiple medical problems including thyroid cancer status post surgery, chemo and radiation, left christian extensive necrotic lesion which is nonoperable as per the patient admitted for bilateral lower extremity swelling and pain. DVT studies came back negative. Also found to have a new onset A. fib with RVR. Presently on a diltiazem 30 mg every 6 hours. Heart rate in the 90s. In sinus rhythm. Patient says she is feeling better. Urine culture is positive for Klebsiella pneumonia to continue cefepime. 08/21/19-no acute events in the last 24 hours. Patient is afebrile. Heart rate in the 80s still in A. fib. Presently on Cardizem 60 mg p.o. every 6 hours. Bilateral lower leg cellulitis improving. No complaints from the patient. Patient is refusing the dressing change on the left christian she want her friend who is visiting to change the dressings. Reason For Visit: NEW ONSET A FIB RVR ACUTE CHF SIRS Physical Exam Vital Signs: Temp Pulse Resp BP Pulse Ox 97.6 F 80 24 H 125/45 L 97 08/21/19 04:09 08/21/19 04:09 08/21/19 04:09 08/21/19 04:09 08/21/19 04:09 Intake & Output 08/20/19 08/21/19 08/22/19 06:59 06:59 06:59 Intake Total 2334 1786 Output Total 1100 850 Balance 1234 936 Weight 100.1 kg 105.8 kg General appearance: PRESENT: no acute distress, obese Head exam: PRESENT: atraumatic Eye exam: PRESENT: PERRLA Mouth exam: PRESENT: moist, tongue midline Teeth exam: PRESENT: poor dentation Neck exam: ABSENT: carotid bruit, JVD, lymphadenopathy, thyromegaly Respiratory exam: PRESENT: clear to auscultation lilia. ABSENT: rales, rhonchi, wheezes Cardiovascular exam: PRESENT: irregular rhythm, tachycardia GI/Abdominal exam: PRESENT: normal bowel sounds, soft. ABSENT: distended, guarding, mass, organolmegaly, rebound, tenderness Rectal exam: PRESENT: deferred Neurological exam: PRESENT: alert, awake, oriented to person, oriented to place, oriented to time, oriented to situation, CN II-XII grossly intact. ABSENT: motor sensory deficit Psychiatric exam: PRESENT: appropriate affect, normal mood. ABSENT: homicidal ideation, suicidal ideation Skin exam: PRESENT: other - Nonhealing lesion on the left side of the head over the lt christian. Results Laboratory Results: 08/21/19 05:25 08/21/19 05:25 08/21/19 08/21/19 05:25 05:25 WBC 6.4 RBC 3.19 L Hgb 8.9 L Hct 26.1 L MCV 82 MCH 27.8 MCHC 34.1 RDW 16.1 H Plt Count 209 Seg Neutrophils % 76.6 Sodium 138.5 Potassium 3.5 L Chloride 107 Carbon Dioxide 23 Anion Gap 9 BUN 22 H Creatinine 0.95 Est GFR ( Amer) > 60 Glucose 94 Calcium 7.2 L Magnesium 1.9 Total Bilirubin 0.5 AST 21 Alkaline Phosphatase 92 Total Protein 5.2 L Albumin 2.3 L 08/17/19 08/17/19 16:38 16:38 Troponin I 0.067 NT-Pro-B Natriuret Pep 5180 H Impressions: Chest X-Ray 08/17/19 15:26 IMPRESSION: NO SIGNIFICANT RADIOGRAPHIC FINDING IN THE CHEST. Venous Doppler Study 08/18/19 00:00 IMPRESSION: Portions of distal right superficial femoral vein are not visualize d.No DVT identified. Assessment and Plan - Diagnosis (1) New onset atrial fibrillation Is this a current diagnosis for this admission?: Yes Plan: Rate control. Not anticoagulated. New onset A. fib RVR. CHADs Score 4. Chronic anticoagulation indicated. Continue telemetry, IV Cardizem, switch to p.o. once rate control. Neurology consulted. Recommendation pending. 08/19/[id number]-znfo-old female admitted with new onset atrial fibrillation. Cardiology consult was stated. Presently on IV Cardizem drip. In A. fib heart rate in the 80s. echoCardiogram was requested report is pending. Plan heparin 5000 units subcu every 8 hours and also on aspirin. 08/20/[id number]-old female admitted with new onset atrial fibrillation as per Dr. Arcos patient is not a candidate for anticoagulation. Diltiazem drip was discontinued yesterday presently on diltiazem 30 mg every 6 hours. Heart rate in the 90s. Plan is to continue the present management at this time. 08/21/19-patient admitted with new onset atrial fibrillation patient is not a candidate for anticoagulation. Heart rate in the 80s today still in A. fib. Presently on Cardizem 60 mg p.o. every [address] Arcos is on board. (2) ANJELICA (acute kidney injury) Is this a current diagnosis for this admission?: Yes Plan: Prerenal. Improving. Nonoliguric. Normal urine. Electrolytes WNL except for low potassium. Most likely due to dehydration caused by several days of nausea vomiting and diarrhea. Cautious volume resuscitation guided by volume status, avoid nephrotoxic meds, monitor volume status and electrolytes replace as needed. 08/19/2019-patient admitted with acute kidney injury creatinine is improved from 1.61 to 1.3. At the time of admission is 1.87. Improving. 08/20/2019 admission creatinine is 1.89 and today's creatinine is 0.99. Acute kidney injury most likely secondary to prerenal causes resolved. Presently on normal saline at 50 cc/h. 08/21/19-latest serum creatinine is 0.95. Plan is to discontinue IV fluids from today. (3) Acute systolic heart failure Is this a current diagnosis for this admission?: Yes Plan: Denies any chest pain. Denies any history of CAD. SPO2 WNL. Clear lungs on physical examination. Likely due to acute onset A. fib RVR. Admit to telemetry, cardiac diet, PA, beta-blockers. Consider IV diuretics once renal function improves or if there are signs of hypervolemia. 08/19/2019-echocardiogram was requested report is pending. Patient is presently on IV fluids blood pressure is 88/40. He is receiving normal saline at 150 cc/h. Watch for the fluid overload. Rate of IV fluids decreased to 75 cc/h. 08/20/2019-patient blood pressure is improved to 110/60. Presently on normal saline at 50 cc/h. On Cardizem 30 mg every 6 hours for control of the rate. Echocardiogram indicated EF of 65%. Unable to assess the right heart function because of technical difficulties. 08/21/2019-echocardiogram indicates EF of 60 to 65% unable to assess the diastolic function. Plan is to discontinue IV fluids from today blood pressures are stable systolic blood pressure is 125 diastolic blood pressures in the 60s. (4) Cellulitis of right lower extremity Is this a current diagnosis for this admission?: Yes Plan: Improving. Erythema and swelling moving distally. Still has erythema from mid thigh to right foot. No active discharge. Neurovascularly intact. No collection appreciated. Continue empiric broad-spectrum IV antibiotics. Low blood culture. Bilateral venous Doppler ordered. Pending results. 08/19/2018-patient admitted with right lower leg extremity swelling DVT studies are negative. WBC count improved to 16,000 presently on IV cefepime and vancomycin urine culture is showing Klebsiella pneumonia. 08/20/2019 patient admitted with right lower leg cellulitis, DVT studies are negative. WBC count improved to 11,100. Presently on cefepime. Plan is to continue the antibiotic therapy at this time. 08/21/19-patient admitted with right lower leg cellulitis urine cultures came back positive for Klebsiella pneumonia, blood cultures are negative for bacterial growth presently on IV cefepime. Plan is to continue the antibiotic for today. (5) SIRS (systemic inflammatory response syndrome) Is this a current diagnosis for this admission?: Yes Plan: Leukocytosis improving. Afebrile. Lactic acid WNL. Presented with with neutrophil leukocytosis and bandemia, elevated lactic acid, ANJELICA, mildly elevated liver function. Most likely to underlying cellulitis. Continue cautious volume resuscitation guided by volume status. Empiric broad-spectrum IV antibiotics to be changed to p.o. once symptomatic improvement or culture results available. Blood cultures negative so far. Follow-up blood culture. 08/19/2018-patient admitted with elevated WBC count, lactic acid within normal limits and urine culture came back positive for Klebsiella still hypotensive may be meeting the criteria for sepsis. 08/20/2019 WBC count is 11,000, urine culture came back positive for Klebsiella , hypotension is resolving and presently on cefepime. Plan is to continue the antibiotic therapy. 08/21/19-WBC count improved to 6400 today. Presently on IV cefepime for Klebs iella pneumonia in the urine. Afebrile. T-max is 97.6. Hypotension is resolved. (6) Nausea vomiting and diarrhea Is this a current diagnosis for this admission?: Yes (7) Hypotension Is this a current diagnosis for this admission?: Yes Plan: 08/19/2019-patient latest blood pressure is 107/40. Receiving IV fluids normal saline 150 cc/h. Decrease the IV fluids to 75 cc/h to watch for the fluid overload. 08/20/2019 latest blood pressure is 110/50. On IV fluids normal saline at 60/h. Plan is to continue the IV fluids watch for the fluid overload. 08/21/2019 blood pressure today is 125/60 presently on IV fluids normal saline at 50 cc/h plan is to discontinue IV fluids from today. (8) Hypocalcemia Is this a current diagnosis for this admission?: Yes Plan: 08/19/2019-serum calcium is 6.5 with serum albumin of 2.1 corrected calcium is within normal limits. 08/20/2019 serum calcium is 7.0 with albumin of 2.3. Corrected serum calcium is within normal limits. 08/21/2019-serum calcium is 7.2 with albumin of 2.3. Corrected calcium within the normal limits. (9) Hypoalbuminemia Is this a current diagnosis for this admission?: Yes Plan: 08/19/2019-serum albumin is 2.1 today to give albumin supplementation today. 08/20/2019 serum albumin is 2.3 patient was given albumin supplementation yesterday. dietery consult will be requested. 08/21/2019 serum albumin is today is 2.3. Dietary consult was requested. (10) Obesity (BMI 30.0-34.9) Is this a current diagnosis for this admission?: No (11) UTI (urinary tract infection) Is this a current diagnosis for this admission?: Yes (12) Hypokalemia Is this a current diagnosis for this admission?: Yes Plan: 08/19/2019-serum k is 3.2 hypokalemia most likely secondary to poor oral intake to give 40 mg of p.o. potassium. 08/20/2019 serum potassium is 3.2 to give 40 mg of p.o. potassium today. 08/21/19 serum potassium today is 3.5 hypokalemia is resolving. Plan is to repeat the labs tomorrow.
[2019-08-21] MEDS: ASPIRIN 81 MG TABLET, CHEWABLE PO SCH (10:19)
[2019-08-21] MEDS: FAMOTIDINE 20 MG TABLET PO SCH ×2 (10:19→22:50)
[2019-08-21] MEDS: DILTIAZEM HCL 180 MG CAPSULE.CR PO SCH ×2 (10:19→22:50)
[2019-08-21] MEDS: CALCITRIOL 0.25 MCG CAPSULE PO SCH ×2 (10:19→17:04)
[2019-08-21] MEDS: MAGNESIUM OXIDE 400 MG TABLET PO SCH (10:20)
[2019-08-21] MEDS: FERROUS SULFATE 325 MG TABLET PO SCH ×3 (10:20→17:03)
[2019-08-21] MEDS: CEFEPIME 1 GM/D5W RTU 1 GM/50 ML RTUPB IV SCH ×2 (10:20→22:49)
[2019-08-21] MEDS ORDERED: LEVALBUTEROL HCL NEB 1.25 MG/3 ML AMPUL NEB ONE (12:00)
[2019-08-21] MEDS ORDERED: LEVALBUTEROL HCL NEB 0.63 MG/3 ML AMPUL NEB ONE (12:01)
[2019-08-21] MEDS: CALCIUM CARBONATE 250 MG/VITAMIN D3 125 UNIT TABLET PO SCH ×2 (13:30→17:03)
--- NOTE | 2019-08-21 15:05 | Progress Note ---
Provider Note Provider Note: CARDIOLOGY PROGRESS NOTE by Dr. Bárbara Arcos on 08/21/2019. OBJECTIVE: The patient denies any chest pain or discomfort. There is no shortness of breath. There is no PND orthopnea. There is no increase in leg swelling. She continues to be in atrial fibrillation, but with a ventricular response well controlled. The patient is to be transitioned to a long-acting Cardizem today. There is no TIA CVA symptoms. There is no bleeding from the lesion on the left temporal region. There is no dizziness, near syncope or syncope. PHYSICAL EXAMINATION: The patient mildly obese in no acute distress. Selected Entries 08/21/19 11:56 Temperature 97.8 F Temperature Oral Source Pulse Rate 89 Respiratory 18 Rate Blood Pressure 136/60 H Blood Pressure 85 Mean BP Location Right Arm BP Position Supine O2 Sat by Pulse 99 Oximetry Oxygen Delivery Room Air Method Head: There is a bandaged area in the left temporal region of the head. This the patient claims to be inoperable lesion the etiology of which is not really known. EYES: Pupils are equal round regular reactive light accommodation. Extraocular movements are normal. There is no conjunctival pallor. There is no scleral icterus. ENT is negative. NECK: Supple. There is no JVD. Carotids are equal there is no bruit. There is no goiter. There is no lymphadenopathy. There is no accessory muscle respiration use. Trachea central. Lungs: Clear to auscultation percussion. Heart: S1-S2 is heard S1 is of variable intensity. There is no S3 gallop. There is no S4 gallop. There is systolic murmur left sternal border and the apex there is no rub. ABDOMEN: Soft. Nontender there is no paraspinal megaly. Bowel sounds well heard. EXTREMITIES: Femorals are diminished. There is no femoral bruits. Leg pulses are difficult to palpate. There is mild chronic pedal lymphedema present bilaterally. There is no cellulitis. There is no cyanosis or clubbing. [employer]: The patient is conscious awake alert oriented x3 with no focal deficits. PSYCHIATRIC: The patient judgment insight are intact her affect is normal. Labs- All tests 24 hr 08/21/19 08/21/19 05:25 05:25 WBC 6.4 RBC 3.19 L Hgb 8.9 L Hct 26.1 L MCV 82 MCH 27.8 MCHC 34.1 RDW 16.1 H Plt Count 209 Lymph % (Auto) 10.6 L [place] % (Auto) 7.0 Eos % (Auto) 4.9 Baso % (Auto) 0.9 Absolute Neuts (auto) 4.9 Absolute Lymphs (auto) 0.7 Absolute Monos (auto) 0.4 Absolute Eos (auto) 0.3 Absolute Basos (auto) 0.1 Seg Neutrophils % 76.6 Sodium 138.5 Potassium 3.5 L Chloride 107 Carbon Dioxide 23 Anion Gap 9 BUN 22 H Creatinine 0.95 Est GFR ( Amer) > 60 Est GFR (MDRD) Non-Af 58 L Glucose 94 Calcium 7.2 L Magnesium 1.9 Total Bilirubin 0.5 Direct Bilirubin 0.4 Neonat Total Bilirubin Not Reportable Neonat Direct Bilirubin Not Reportable Neonat Indirect Bili Not Reportable AST 21 ALT 12 Alkaline Phosphatase 92 Total Protein 5.2 L Albumin 2.3 L Chest X-Ray 08/17/19 15:26 IMPRESSION: NO SIGNIFICANT RADIOGRAPHIC FINDING IN THE CHEST. Venous Doppler Study 08/18/19 00:00 IMPRESSION: Portions of distal right superficial femoral vein are not visualized.No DVT identified. IMPRESSION/RECOMMENDATION: 1. Atrial fibrillation with demand rapid ventricular response on admission. At present ventricular response to the patient is atrial fibrillation is very well controlled. Will change the patient's Cardizem to Cardizem 180 mg p.o. every 12 hours.. As mentioned earlier in view of the same extensive lesion in the left baptist of the patient which the patient states bleeds off and on, which makes it high risk for the patient to be on chronic anticoagulation. Hence patient not a candidate for chronic anticoagulation. This has been discussed with the patient. She is aware of the risks of stroke. 2. Sepsis: Possibly the etiology of the infection is either urinary tract infection or the lesion in the left baptist. Continue antibiotics. 3. Acute kidney renal failure. Renal function improving, and the GFR is improving and is now 58 mL/min.. Continue hydration and current antibiotics. Avoid nephrotoxic drugs 4. Hypertension: Continue to watch blood pressure. 5. Hypothyroidism: Continue thyroid replacement 6. Significant extensive left temporal lesion on the head the etiology of which is not known. Medications reviewed. Medications adjusted. Medical decision making is of moderate complexity. 40 minutes spent as patient more than 50% time spent in direct patient care. Will follow. Discussed medical regimen and management plan with the attending physician on the case. Cardiac status is stable will sign off the case. This has been discussed with attending provider on the case. The patient is most likely going to a rehab facility. She will contact me to make an appointment to see me in the office after she gets out of rehab. The patient does have my cell phone number.
[2019-08-21] MEDS: LEVALBUTEROL HCL NEB 0.63 MG/3 ML AMPUL NEB PRN (17:52)
[2019-08-22] MEDS: LEVALBUTEROL HCL NEB 0.63 MG/3 ML AMPUL NEB PRN ×3 (00:12→12:28)
[2019-08-22] MEDS: HEPARIN SOD (PORCINE) 5,000 UNIT/ML 1 ML VIAL SUBCUT SCH ×3 (05:26→22:32)
[2019-08-22] MEDS: LEVOTHYROXINE SODIUM 0.112 MG TABLET PO SCH (05:26)
[2019-08-22] MEDS: LEVOTHYROXINE SODIUM 0.025 MG TABLET PO SCH (05:26)
[2019-08-22] MEDS: NYSTATIN TOPICAL POWDER 15 GM TP SCH ×3 (05:27→22:32)
[2019-08-22 05:29] LABS: HEMATOCRIT 27.7 % (36.0-47.0); HEMOGLOBIN 9.4 g/dL (12.0-15.5); MEAN CORPUSCULAR HEMOGLOBIN 27.5 pg (27.0-33.4); MEAN CORPUSCULAR HGB CONC 33.9 g/dL (32.0-36.0); MEAN CORPUSCULAR VOLUME 81 fl (80-97); PLATELET COUNT 264 10^3/uL (150-450); RED BLOOD COUNT 3.43 10^6/uL (3.72-5.28); RED CELL DISTRIBUTION WIDTH 15.8 % (11.5-14.0); WHITE BLOOD COUNT 6.4 10^3/uL (4.0-10.5)
[2019-08-22 05:46] LABS: ALBUMIN 2.4 g/dL (3.5-5.0); ALKALINE PHOSPHATASE 95 U/L (38-126); ANION GAP 8 (5-19); ASPARTATE AMINO TRANSFERASE 29 U/L (14-36); BILIRUBIN,DIRECT 0.3 mg/dL (0.0-0.4); BILIRUBIN,TOTAL 0.4 mg/dL (0.2-1.3); BLOOD UREA NITROGEN 20 mg/dL (7-20); CALCIUM 8.3 mg/dL (8.4-10.2); CARBON DIOXIDE 24 mmol/L (22-30); CHLORIDE 106 mmol/L (98-107); GLUCOSE 89 mg/dL (75-110); POTASSIUM 3.4 mmol/L (3.6-5.0); TOTAL PROTEIN 5.5 g/dL (6.3-8.2)
[2019-08-22 06:30] LABS: ABSOLUTE LYMPHOCYTES# (MANUAL) 0.5 10^3/uL (0.5-4.7); ABSOLUTE MONOCYTES # (MANUAL) 0.2 10^3/uL (0.1-1.4); BASOPHILS % (MANUAL) 1 % (0-2); EOSINOPHILS % (MANUAL) 3 % (0-6); LYMPHOCYTES % (MANUAL) 8 % (13-45); MONOCYTES % (MANUAL) 3 % (3-13); SEGMENTED NEUTROPHILS % (MAN) 85 % (42-78); TOTAL CELLS COUNTED 100
[2019-08-22 06:34] LABS: OVALOCYTES 1+; TEAR DROP CELLS SLIGHT; TOXIC GRANULATION 1+
[2019-08-22 06:35] LABS: ANISOCYTOSIS 1+; PLATELET COMMENT ADEQUATE; POIKILOCYTOSIS 1+
[2019-08-22] MEDS ORDERED: POTASSIUM CHLORIDE 10 MEQ TABLET.ER PO ONE (08:00)
[2019-08-22] MEDS: FERROUS SULFATE 325 MG TABLET PO SCH ×3 (08:19→17:49)
--- NOTE | 2019-08-22 09:40 | PDOC PROGRESS REPORT ---
Subjective Progress Note for:: 08/22/19 Subjective:: 68 year old female has medical history of hypertension, thyroid cancer status post surgery and chemoradiation, left taoist extensive necrotic lesion that the patient describes as nonoperable but does not provide much information, brought to ED for evaluation of right lower extremity pain and swelling. Patient is accompanied by Vashti her personal friend who happens to be a nurse who is also providing much of the history, stating that patient has been having nausea vomiting diarrhea for the last week, which is currently resolved at the time patient noticed that her right lower extremity was becoming erythematous below the knee, but 3 days later it progressed proximally all the way to the inguinal fold accompanied with swelling and tenderness. Patient also noted that she is feeling weaker than usual which is progressively getting worse accompanied with shortness of breath on exertion. Denies any chest pain, palpitation, orthopnea, paroxysmal nocturnal dyspnea, abdominal pain, headache, vision changes, urinary symptoms. In ED she was noted to be in A. fib RVR, elevated lactic acid, leukocytosis, elevated BNP, and ANJELICA. Patient was started on empiric IV antibiotics, volume resuscitation and hospital was consulted for admission. 08/18/2019. No acute events overnight. Patient comfortably resting in bed no apparent distress. Enjoying her breakfast. Complaining of right lower extremity tenderness otherwise denies any fever, chills, nausea, vomiting, diarrhea, constipation, palpitation or any urinary symptoms. 08/[id number]-idhj-old female with multiple medical problems including thyroid cancer status post surgery and chemoradiation, left taoist extensive necrotic lesion which is nonoperable admitted for bilateral lower extremity swelling and pain. DVT studies came back negative. No acute events in the last 24 hours. Patient is comfortable in the bed communicating well. 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 DVT studies came back negative. Also found to have a new onset A. fib with RVR. Presently on a diltiazem 30 mg every 6 hours. Heart rate in the 90s. In sinus rhythm. Patient says she is feeling better. Urine culture is positive for Klebsiella pneumonia to continue cefepime. 08/21/19-no acute events in the last 24 hours. Patient is afebrile. Heart rate in the 80s still in A. fib. Presently on Cardizem 60 mg p.o. every 6 hours. Bilateral lower leg cellulitis improving. No complaints from the patient. Patient is refusing the dressing change on the left taoist she want her friend who is visiting to change the dressings. 08/22/2019-no acute events in the last 24 hours. Patient is expressing desire to go to rehab. Consult was placed for social services. Heart rate is still around 100 on Cardizem 180 mg p.o. twice daily. Comfortably in the bed no complaints from the patient. Afebrile. Serum calcium level is 8.3 and serum albumin is 2.4 hypocalcemia resolved. Reason For Visit: NEW ONSET A FIB RVR ACUTE CHF SIRS Physical Exam Vital Signs: Temp Pulse Resp BP Pulse Ox 97.4 F 100 18 156/65 H 98 08/22/19 07:17 08/22/19 07:17 08/22/19 07:17 08/22/19 07:17 08/22/19 07:17 Intake & Output 08/21/19 08/22/19 08/23/19 06:59 06:59 06:59 Intake Total 1786 1289 Output Total 850 1025 Balance 936 264 Weight 105.8 kg 105.2 kg General appearance: PRESENT: no acute distress, obese Head exam: PRESENT: atraumatic Eye exam: PRESENT: PERRLA Mouth exam: PRESENT: moist, tongue midline Teeth exam: PRESENT: poor dentation Neck exam: ABSENT: carotid bruit, JVD, lymphadenopathy, thyromegaly Respiratory exam: PRESENT: clear to auscultation lilia. ABSENT: rales, rhonchi, wheezes Cardiovascular exam: PRESENT: irregular rhythm, tachycardia GI/Abdominal exam: PRESENT: normal bowel sounds, soft. ABSENT: distended, guarding, mass, organolmegaly, rebound, tenderness Rectal exam: PRESENT: deferred Extremities exam: PRESENT: +1 edema, other - Bilateral lower extremity edema with cellulitis resolving. Neurological exam: PRESENT: alert, awake, oriented to person, oriented to place, oriented to time, oriented to situation, CN II-XII grossly intact. ABSENT: m otor sensory deficit Psychiatric exam: PRESENT: appropriate affect, normal mood. ABSENT: homicidal ideation, suicidal ideation Skin exam: PRESENT: other - Patient has a nonhealing lesion on the left side of the head over the left taoist. Results Laboratory Results: 08/22/19 05:15 08/22/19 05:15 08/22/19 08/22/19 05:15 05:15 WBC 6.4 RBC 3.43 L Hgb 9.4 L Hct 27.7 L MCV 81 MCH 27.5 MCHC 33.9 RDW 15.8 H Plt Count 264 Seg Neutrophils % Not Reportable Sodium 138.3 Potassium 3.4 L Chloride 106 Carbon Dioxide 24 Anion Gap 8 BUN 20 Creatinine 0.93 Est GFR ( Amer) > 60 Glucose 89 Calcium 8.3 L Magnesium 1.8 Total Bilirubin 0.4 AST 29 Alkaline Phosphatase 95 Total Protein 5.5 L Albumin 2.4 L 08/17/19 08/17/19 16:38 16:38 Troponin I 0.067 NT-Pro-B Natriuret Pep 5180 H Impressions: Chest X-Ray 08/17/19 15:26 IMPRESSION: NO SIGNIFICANT RADIOGRAPHIC FINDING IN THE CHEST. Venous Doppler Study 08/18/19 00:00 IMPRESSION: Portions of distal right superficial femoral vein are not visualized.No DVT identified. Assessment and Plan - Diagnosis (1) New onset atrial fibrillation Is this a current diagnosis for this admission?: Yes Plan: Rate control. Not anticoagulated. New onset A. fib RVR. CHADs Score 4. Chronic anticoagulation indicated. Continue telemetry, IV Cardizem, switch to p.o. once rate control. Neurology consulted. Recommendation pending. 08/19/[id number]-nujx-old female admitted with new onset atrial fibrillation. Cardiology consult was stated. Presently on IV Cardizem drip. In A. fib heart rate in the 80s. echoCardiogram was requested report is pending. Plan heparin 5000 units subcu every 8 hours and also on aspirin. 08/20/[id number]-qisn-old female admitted with new onset atrial fibrillation as per Dr. Arcos patient is not a candidate for anticoagulation. Diltiazem drip was discontinued yesterday presently on diltiazem 30 mg every 6 hours. Heart rate in the 90s. Plan is to continue the present management at this time. 08/21/19-patient admitted with new onset atrial fibrillation patient is not a candidate for anticoagulation. Heart rate in the 80s today still in A. fib. Presently on Cardizem 60 mg p.o. every [address] Arcos is on board. 08/22/2019-patient admitted with a new onset atrial fibrillation presently on Cardizem 180 mg p.o. every 12 hours heart rate is around 100 still in A. fib. Plan is to continue the present management at this time. (2) ANJELICA (acute kidney injury) Is this a current diagnosis for this admission?: Yes Plan: Prerenal. Improving. Nonoliguric. Normal urine. Electrolytes WNL except for low potassium. Most likely due to dehydration caused by several days of nausea vomiting and diarrhea. Cautious volume resuscitation guided by volume status, avoid nephrotoxic meds, monitor volume status and electrolytes replace as needed. 08/19/2019-patient admitted with acute kidney injury creatinine is improved from 1.61 to 1.3. At the time of admission is 1.87. Improving. 08/20/2019 admission creatinine is 1.89 and today's creatinine is 0.99. Acute kidney injury most likely secondary to prerenal causes resolved. Presently on normal saline at 50 cc/h. 08/21/19-latest serum creatinine is 0.95. Plan is to discontinue IV fluids from today. (3) Acute systolic heart failure Is this a current diagnosis for this admission?: Yes Plan: Denies any chest pain. Denies any history of CAD. SPO2 WNL. Clear lungs on physical examination. Likely due to acute onset A. fib RVR. Admit to telemetry, cardiac diet, PA, beta-blockers. Consider IV diuretics once renal function improves or if there are signs of hypervolemia. 08/19/2019-echocardiogram was requested report is pending. Patient is presently on IV fluids blood pressure is 88/40. He is receiving normal saline at 150 cc/h. Watch for the fluid overload. Rate of IV fluids decreased to 75 cc/h. 08/20/2019-patient blood pressure is improved to 110/60. Presently on normal saline at 50 cc/h. On Cardizem 30 mg every 6 hours for control of the rate. Echocardiogram indicated EF of 65%. Unable to assess the right heart function because of technical difficulties. 08/21/2019-echocardiogram indicates EF of 60 to 65% unable to assess the diastolic function. Plan is to discontinue IV fluids from today blood pressures are stable systolic blood pressure is 125 diastolic blood pressures in the 60s. On 620-blood pressure today is 147/65 improved. Not on IV fluids. Bilateral lower extremity edema improving. EF shows left ventricular history of fraction of 60 to 65%. Unable to assess the diastolic function. (4) Cellulitis of right lower extremity Is this a current diagnosis for this admission?: Yes Plan: Improving. Erythema and swelling moving distally. Still has erythema from mid thigh to right foot. No active discharge. Neurovascularly intact. No collection appreciated. Continue empiric broad-spectrum IV antibiotics. Low blood culture. Bilateral venous Doppler ordered. Pending results. 08/19/2018-patient admitted with right lower leg extremity swelling DVT studies are negative. WBC count improved to 16,000 presently on IV cefepime and vancomycin urine culture is showing Klebsiella pneumonia. 08/20/2019 patient admitted with right lower leg cellulitis, DVT studies are negative. WBC count improved to 11,100. Presently on cefepime. Plan is to continue the antibiotic therapy at this time. 08/21/19-patient admitted with right lower leg cellulitis urine cultures came back positive for Klebsiella pneumonia, blood cultures are negative for bacterial growth presently on IV cefepime. Plan is to continue the antibiotic for today. 08/22/2019-right lower extremity cellulitis is improving presently on IV cefepime. Urine culture came back positive for Klebsiella pneumonia blood cultures are negative. (5) SIRS (systemic inflammatory response syndrome) Is this a current diagnosis for this admission?: Yes Plan: Leukocytosis improving. Afebrile. Lactic acid WNL. Presented with with neutrophil leukocytosis and bandemia, elevated lactic acid, ANJELICA, mildly elevated liver function. Most likely to underlying cellulitis. Continue cautious volume resuscitation guided by volume status. Empiric broad-spectrum IV antibiotics to be changed to p.o. once symptomatic improvement or culture results available. Blood cultures negative so far. Follow-up blood culture. 08/19/2018-patient admitted with elevated WBC count, lactic acid within normal limits and urine culture came back positive for Klebsiella still hypotensive may be meeting the criteria for sepsis. 08/20/2019 WBC count is 11,000, urine culture came back positive for Klebsiella , hypotension is resolving and presently on cefepime. Plan is to continue the an tibiotic therapy. 08/21/19-WBC count improved to 6400 today. Presently on IV cefepime for Klebsiella pneumonia in the urine. Afebrile. T-max is 97.6. Hypotension is resolved. 08/22/19-WBC count is 6400. Afebrile. (6) Nausea vomiting and diarrhea Is this a current diagnosis for this admission?: Yes (7) Hypotension Is this a current diagnosis for this admission?: Yes Plan: 08/19/2019-patient latest blood pressure is 107/40. Receiving IV fluids normal saline 150 cc/h. Decrease the IV fluids to 75 cc/h to watch for the fluid overload. 08/20/2019 latest blood pressure is 110/50. On IV fluids normal saline at 60/h. Plan is to continue the IV fluids watch for the fluid overload. 08/21/2019 blood pressure today is 125/60 presently on IV fluids normal saline at 50 cc/h plan is to discontinue IV fluids from today. 08/22/19-blood pressure today is 147/65 stable. Hypotension resolved. Not on IV fluids. (8) Hypocalcemia Is this a current diagnosis for this admission?: Yes Plan: 08/19/2019-serum calcium is 6.5 with serum albumin of 2.1 corrected calcium is within normal limits. 08/20/2019 serum calcium is 7.0 with albumin of 2.3. Corrected serum calcium is within normal limits. 08/21/2019-serum calcium is 7.2 with albumin of 2.3. Corrected calcium within the normal limits. 08/22/2019-serum calcium is 8.3 today with a serum albumin of 2.4 corrected calcium is within normal limits to discontinue calcium supplementations from today. (9) Hypoalbuminemia Is this a current diagnosis for this admission?: Yes (10) Obesity (BMI 30.0-34.9) Is this a current diagnosis for this admission?: No (11) UTI (urinary tract infection) Is this a current diagnosis for this admission?: Yes (12) Hypokalemia Is this a current diagnosis for this admission?: Yes
[2019-08-22] MEDS: DILTIAZEM HCL 180 MG CAPSULE.CR PO SCH ×2 (09:51→22:29)
[2019-08-22] MEDS: FAMOTIDINE 20 MG TABLET PO SCH ×2 (09:52→22:28)
[2019-08-22] MEDS: ASPIRIN 81 MG TABLET, CHEWABLE PO SCH (09:52)
[2019-08-22] MEDS: CALCITRIOL 0.25 MCG CAPSULE PO SCH ×2 (09:52→17:49)
[2019-08-22] MEDS: MAGNESIUM OXIDE 400 MG TABLET PO SCH (09:52)
[2019-08-22] MEDS: LEVOFLOXACIN 500 MG TABLET PO SCH (10:20)
[2019-08-23] MEDS: HEPARIN SOD (PORCINE) 5,000 UNIT/ML 1 ML VIAL SUBCUT SCH ×3 (05:29→23:42)
[2019-08-23] MEDS: LEVOTHYROXINE SODIUM 0.112 MG TABLET PO SCH (05:32)
[2019-08-23] MEDS: LEVOTHYROXINE SODIUM 0.025 MG TABLET PO SCH (05:32)
[2019-08-23] MEDS: NYSTATIN TOPICAL POWDER 15 GM TP SCH ×3 (05:32→23:53)
[2019-08-23 06:20] LABS: HEMATOCRIT 28.9 % (36.0-47.0); HEMOGLOBIN 9.7 g/dL (12.0-15.5); MEAN CORPUSCULAR HEMOGLOBIN 27.5 pg (27.0-33.4); MEAN CORPUSCULAR HGB CONC 33.7 g/dL (32.0-36.0); MEAN CORPUSCULAR VOLUME 82 fl (80-97); PLATELET COUNT 313 10^3/uL (150-450); RED BLOOD COUNT 3.54 10^6/uL (3.72-5.28); RED CELL DISTRIBUTION WIDTH 15.6 % (11.5-14.0); WHITE BLOOD COUNT 6.9 10^3/uL (4.0-10.5)
[2019-08-23 06:39] LABS: ALBUMIN 2.5 g/dL (3.5-5.0); ALKALINE PHOSPHATASE 91 U/L (38-126); ANION GAP 5 (5-19); ASPARTATE AMINO TRANSFERASE 24 U/L (14-36); BILIRUBIN,DIRECT 0.2 mg/dL (0.0-0.4); BILIRUBIN,TOTAL 0.4 mg/dL (0.2-1.3); BLOOD UREA NITROGEN 20 mg/dL (7-20); CALCIUM 7.7 mg/dL (8.4-10.2); CARBON DIOXIDE 27 mmol/L (22-30); CHLORIDE 105 mmol/L (98-107); GLUCOSE 86 mg/dL (75-110); TOTAL PROTEIN 5.6 g/dL (6.3-8.2)
[2019-08-23 06:43] LABS: ABSOLUTE LYMPHOCYTES# (MANUAL) 0.6 10^3/uL (0.5-4.7); ABSOLUTE MONOCYTES # (MANUAL) 0.6 10^3/uL (0.1-1.4); BASOPHILS % (MANUAL) 2 % (0-2); EOSINOPHILS % (MANUAL) 5 % (0-6); LYMPHOCYTES % (MANUAL) 9 % (13-45); MONOCYTES % (MANUAL) 8 % (3-13); SEGMENTED NEUTROPHILS % (MAN) 76 % (42-78); TOTAL CELLS COUNTED 100
[2019-08-23 06:44] LABS: ANISOCYTOSIS SLIGHT; HYPERSEGMENTED NEUTROPHILS PRESENT; OVALOCYTES SLIGHT; PLATELET COMMENT ADEQUATE; POIKILOCYTOSIS SLIGHT
[2019-08-23] MEDS: FERROUS SULFATE 325 MG TABLET PO SCH ×3 (08:15→16:36)
[2019-08-23] MEDS: MAGNESIUM OXIDE 400 MG TABLET PO SCH (10:05)
[2019-08-23] MEDS: LEVOFLOXACIN 500 MG TABLET PO SCH (10:05)
[2019-08-23] MEDS: CALCITRIOL 0.25 MCG CAPSULE PO SCH ×2 (10:06→17:36)
[2019-08-23] MEDS: FAMOTIDINE 20 MG TABLET PO SCH ×2 (10:06→23:38)
[2019-08-23] MEDS: ASPIRIN 81 MG TABLET, CHEWABLE PO SCH (10:06)
[2019-08-23] MEDS: DILTIAZEM HCL 180 MG CAPSULE.CR PO SCH ×2 (10:06→23:38)
--- NOTE | 2019-08-23 15:13 | PDOC PROGRESS REPORT ---
Subjective Progress Note for:: 08/23/19 Subjective:: The patient was nauseated earlier but there was no vomiting. May be related to the antibiotic. She feels much better now. She is resting comfortably in bed. Dressing on the left side of her head in place. No other complaints today. Reason For Visit: NEW ONSET A FIB RVR ACUTE CHF SIRS Physical Exam Vital Signs: Temp Pulse Resp BP Pulse Ox 98.2 F 83 16 134/73 H 96 08/23/19 12:03 08/23/19 14:00 08/23/19 13:19 08/23/19 12:03 08/23/19 13:19 Intake & Output 08/22/19 08/23/19 08/24/19 06:59 06:59 06:59 Intake Total 1289 858 444 Output Total 1025 1575 225 Balance 264 -717 219 Weight 105.2 kg 105.5 kg General appearance: PRESENT: no acute distress, cooperative, well-developed, well-nourished Head exam: PRESENT: atraumatic, other - Large dressing on the head. 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 Neck exam: PRESENT: other - Triple-lumen catheter left IJ Respiratory exam: PRESENT: clear to auscultation lilia, symmetrical, unlabored. ABSENT: rales, rhonchi, tachypnea, wheezes Cardiovascular exam: PRESENT: irregular rhythm GI/Abdominal exam: PRESENT: normal bowel sounds, soft. ABSENT: distended, guarding, tenderness Rectal exam: PRESENT: deferred Gentrourinary exam: PRESENT: indwelling catheter Neurological exam: PRESENT: alert, awake, oriented to person, oriented to place, oriented to time, oriented to situation Psychiatric exam: PRESENT: appropriate affect. ABSENT: agitated, anxious Focused psych exam: ABSENT: delusional, restlessness Results Laboratory Results: 08/23/19 05:50 08/23/19 05:50 08/23/19 08/23/19 05:50 05:50 WBC 6.9 RBC 3.54 L Hgb 9.7 L Hct 28.9 L MCV 82 MCH 27.5 MCHC 33.7 RDW 15.6 H Plt Count 313 Seg Neutrophils % Not Reportable Sodium 136.8 L Potassium 4.0 Chloride 105 Carbon Dioxide 27 Anion Gap 5 BUN 20 Creatinine 0.84 Est GFR ( Amer) > 60 Glucose 86 Calcium 7.7 L Magnesium 1.8 Total Bilirubin 0.4 AST 24 Alkaline Phosphatase 91 Total Protein 5.6 L Albumin 2.5 L 08/17/19 21:06 Blood Blood Culture - Final NO GROWTH IN 5 DAYS 08/17/19 16:38 Blood Blood Culture - Final NO GROWTH IN 5 DAYS 08/17/19 08/17/19 16:38 16:38 Troponin I 0.067 NT-Pro-B Natriuret Pep 5180 H Impressions: Chest X-Ray 08/17/19 15:26 IMPRESSION: NO SIGNIFICANT RADIOGRAPHIC FINDING IN THE CHEST. Venous Doppler Study 08/18/19 00:00 IMPRESSION: Portions of distal right superficial femoral vein are not visualiz ed.No DVT identified. Assessment and Plan - Diagnosis (1) New onset atrial fibrillation Is this a current diagnosis for this admission?: Yes Plan: Good rate control. Continue current medications Will discuss anticoagulation. Large ulcerated lesion on her head may bleed significantly if anticoagulated. (2) ANJELICA (acute kidney injury) Is this a current diagnosis for this admission?: Yes Plan: Resolved (3) Acute systolic heart failure Is this a current diagnosis for this admission?: Yes Plan: EF is normal. Cannot comment on diastolic function. Pulmonary hypertension noted. Heart failure most likely secondary to the A. fib with RVR. Continue current medications. (4) Cellulitis of right lower extremity Is this a current diagnosis for this admission?: Yes Plan: Improving. Continue antibiotics (5) SIRS (systemic inflammatory response syndrome) Is this a current diagnosis for this admission?: Yes Plan: Resolved with antibiotics (6) Hypoalbuminemia Is this a current diagnosis for this admission?: Yes (7) Hypotension Qualifiers: Hypotension type: other hypotension type Qualified Code(s): I95.89 - Other hypotension Is this a current diagnosis for this admission?: Yes Plan: Secondary to sepsis. Resolved (8) Nausea vomiting and diarrhea Is this a current diagnosis for this admission?: Yes Plan: Likely secondary to infection. Resolved (9) Obesity (BMI 30.0-34.9) Is this a current diagnosis for this admission?: Yes Plan: Encourage weight loss (10) UTI (urinary tract infection) Is this a current diagnosis for this admission?: Yes Plan: Klebsiella. Resolved with antibiotics. (11) Hypocalcemia Is this a current diagnosis for this admission?: Yes Plan: Initial low calcium likely secondary to aggressive fluids. Patient also has hypoalbuminemia. Serum calcium now corrects to normal. (12) Hypokalemia Is this a current diagnosis for this admission?: Yes Plan: Potassium supplementation. Continue to monitor (13) Anemia in chronic illness Is this a current diagnosis for this admission?: Yes Plan: Continue to monitor. No transfusion. - Time Time Spent with patient: 15-24 minutes Medications reviewed and adjusted accordingly: Yes
[2019-08-24] MEDS: LEVOTHYROXINE SODIUM 0.025 MG TABLET PO SCH (05:59)
[2019-08-24] MEDS: LEVOTHYROXINE SODIUM 0.112 MG TABLET PO SCH (05:59)
[2019-08-24] MEDS: HEPARIN SOD (PORCINE) 5,000 UNIT/ML 1 ML VIAL SUBCUT SCH ×3 (06:00→21:43)
[2019-08-24] MEDS: NYSTATIN TOPICAL POWDER 15 GM TP SCH ×3 (06:01→21:43)
[2019-08-24] MEDS: POTASSIUM CHLORIDE 10 MEQ TABLET.ER PO SCH (10:20)
[2019-08-24] MEDS: LEVOFLOXACIN 500 MG TABLET PO SCH (10:20)
[2019-08-24] MEDS: ASPIRIN 81 MG TABLET, CHEWABLE PO SCH (10:20)
[2019-08-24] MEDS: FERROUS SULFATE 325 MG TABLET PO SCH ×3 (10:21→17:27)
[2019-08-24] MEDS: FAMOTIDINE 20 MG TABLET PO SCH ×2 (10:21→21:42)
[2019-08-24] MEDS: DILTIAZEM HCL 180 MG CAPSULE.CR PO SCH ×2 (10:21→21:42)
[2019-08-24] MEDS: MAGNESIUM OXIDE 400 MG TABLET PO SCH (10:21)
[2019-08-24] MEDS: CALCITRIOL 0.25 MCG CAPSULE PO SCH ×2 (10:21→17:27)
--- NOTE | 2019-08-24 14:59 | PDOC PROGRESS REPORT ---
Subjective Progress Note for:: 08/24/19 Subjective:: Patient is resting in bed. She is not in any acute distress. Still with the bulky dressing on her head. Reason For Visit: NEW ONSET A FIB RVR ACUTE CHF SIRS Physical Exam Vital Signs: Temp Pulse Resp BP Pulse Ox 97.5 F 92 18 145/61 H 100 08/24/19 12:07 08/24/19 12:07 08/24/19 12:07 08/24/19 12:07 08/24/19 12:07 Intake & Output 08/23/19 08/24/19 08/25/19 06:59 06:59 06:59 Intake Total 858 1074 375 Output Total 1575 1200 300 Balance -717 -126 75 Weight 105.5 kg 104.3 kg General appearance: PRESENT: no acute distress, cooperative, well-developed Head exam: ABSENT: normocephalic Neck exam: PRESENT: other - Left IJ triple-lumen catheter in place Respiratory exam: PRESENT: clear to auscultation lilia, symmetrical, unlabored. ABSENT: rales, rhonchi, tachypnea, wheezes Cardiovascular exam: PRESENT: irregular rhythm GI/Abdominal exam: PRESENT: normal bowel sounds, soft, other - Protuberant abdomen. ABSENT: guarding, tenderness Rectal exam: PRESENT: deferred Gentrourinary exam: ABSENT: indwelling catheter Extremities exam: PRESENT: pedal edema, +2 edema - Asymmetric right leg greater than left Neurological exam: PRESENT: alert, awake, oriented to person, oriented to place, oriented to time, oriented to situation, CN II-XII grossly intact Psychiatric exam: PRESENT: appropriate affect. ABSENT: agitated, anxious Focused psych exam: ABSENT: delusional, restlessness Skin exam: PRESENT: erythema - Bilateral legs right more so than left, other - Keratin scaling both legs Results Laboratory Results: 08/23/19 05:50 08/23/19 05:50 08/17/19 08/17/19 16:38 16:38 Troponin I 0.067 NT-Pro-B Natriuret Pep 5180 H Impressions: Chest X-Ray 08/17/19 15:26 IMPRESSION: NO SIGNIFICANT RADIOGRAPHIC FINDING IN THE CHEST. Venous Doppler Study 08/18/19 00:00 IMPRESSION: Portions of distal right superficial femoral vein are not visualized.No DVT identified. Assessment and Plan - Diagnosis (1) New onset atrial fibrillation Is this a current diagnosis for this admission?: Yes Plan: Continue diltiazem. No anticoagulation due to fungating lesion left side of the head. (2) ANJELICA (acute kidney injury) Is this a current diagnosis for this admission?: Yes Plan: Resolved (3) Acute systolic heart failure Is this a current diagnosis for this admission?: Yes Plan: Breathing is stable. Still with edema in the legs but this is chronic. Pulmonary hypertension and A. fib with RVR are contributory and likely the acute kidney injury as well. (4) Cellulitis of right lower extremity Is this a current diagnosis for this admission?: Yes Plan: Complete antibiotic therapy as ordered. Due to the chronic venous insufficiency the patient likely has recurrent stasis dermatitis as well. (5) SIRS (systemic inflammatory response syndrome) Is this a current diagnosis for this admission?: Yes Plan: Resolved (6) Hypoalbuminemia Is this a current diagnosis for this admission?: Yes Plan: Chronic (7) Hypotension Qualifiers: Hypotension type: other hypotension type Qualified Code(s): I95.89 - Other hypotension Is this a current diagnosis for this admission?: Yes Plan: Resolved (8) Nausea vomiting and diarrhea Is this a current diagnosis for this admission?: Yes Plan: Resolved (9) Obesity (BMI 30.0-34.9) Is this a current diagnosis for this admission?: Yes Plan: Encouraged weight loss diet (10) UTI (urinary tract infection) Is this a current diagnosis for this admission?: Yes Plan: Extremely sensitive Klebsiella isolated. Complete levofloxacin therapy. (11) Hypocalcemia Is this a current diagnosis for this admission?: Yes Plan: Serum calcium is normal when corrected for low albumin (12) Hypokalemia Is this a current diagnosis for this admission?: Yes Plan: Potassium is normal. Continue potassium supplement (13) Anemia in chronic illness Is this a current diagnosis for this admission?: Yes Plan: Continue to monitor - Time Time Spent with patient: 15-24 minutes Medications reviewed and adjusted accordingly: Yes Anticipated discharge: SNF
[2019-08-24] MEDS: PANTOT AC/MIN OIL/PET HY-PHL OINT 50 GM TOP SCH (17:27)
[2019-08-25] MEDS: HEPARIN SOD (PORCINE) 5,000 UNIT/ML 1 ML VIAL SUBCUT SCH ×2 (05:35→14:20)
[2019-08-25] MEDS: LEVOTHYROXINE SODIUM 0.112 MG TABLET PO SCH (05:36)
[2019-08-25] MEDS: LEVOTHYROXINE SODIUM 0.025 MG TABLET PO SCH (05:36)
[2019-08-25] MEDS: NYSTATIN TOPICAL POWDER 15 GM TP SCH ×2 (05:36→14:20)
[2019-08-25 06:00] LABS: HEMATOCRIT 28.5 % (36.0-47.0); HEMOGLOBIN 9.6 g/dL (12.0-15.5); MEAN CORPUSCULAR HEMOGLOBIN 27.5 pg (27.0-33.4); MEAN CORPUSCULAR HGB CONC 33.6 g/dL (32.0-36.0); MEAN CORPUSCULAR VOLUME 82 fl (80-97); PLATELET COUNT 320 10^3/uL (150-450); RED BLOOD COUNT 3.49 10^6/uL (3.72-5.28); RED CELL DISTRIBUTION WIDTH 16.3 % (11.5-14.0)
[2019-08-25 06:22] LABS: ANION GAP 5 (5-19); BLOOD UREA NITROGEN 20 mg/dL (7-20); CALCIUM 7.7 mg/dL (8.4-10.2); CARBON DIOXIDE 28 mmol/L (22-30); CHLORIDE 104 mmol/L (98-107); GLUCOSE 88 mg/dL (75-110); POTASSIUM 4.2 mmol/L (3.6-5.0)
[2019-08-25] MEDS: FERROUS SULFATE 325 MG TABLET PO SCH ×3 (08:41→17:25)
[2019-08-25] MEDS ORDERED: ONDANSETRON HCL INJ/PF 4 MG/2 ML SDV IV PRN (09:00)
[2019-08-25] MEDS ORDERED: PROMETHAZINE HCL INJ 25 MG/1 ML VIAL IV PRN (09:00)
[2019-08-25] MEDS ORDERED: HYDROCHLOROTHIAZIDE 12.5 MG TABLET PO SCH (10:00)
[2019-08-25] MEDS ORDERED: CALCIUM CARBONATE 250 MG/VITAMIN D3 125 UNIT TABLET PO SCH (10:00)
[2019-08-25] MEDS ORDERED: ASPIRIN 81 MG TABLET, CHEWABLE PO SCH (10:00)
[2019-08-25] MEDS ORDERED: LOSARTAN POTASSIUM 50 MG TABLET PO SCH (10:00)
[2019-08-25] MEDS: LEVOFLOXACIN 500 MG TABLET PO SCH (10:25)
[2019-08-25] MEDS: POTASSIUM CHLORIDE 10 MEQ TABLET.ER PO SCH (10:26)
[2019-08-25] MEDS: MAGNESIUM OXIDE 400 MG TABLET PO SCH (10:27)
[2019-08-25] MEDS: PANTOT AC/MIN OIL/PET HY-PHL OINT 50 GM TOP SCH ×2 (10:28→17:25)
[2019-08-25] MEDS: FAMOTIDINE 20 MG TABLET PO SCH (10:28)
[2019-08-25] MEDS: DILTIAZEM HCL 180 MG CAPSULE.CR PO SCH (10:28)
[2019-08-25] MEDS: CALCITRIOL 0.25 MCG CAPSULE PO SCH ×2 (10:34→17:25)
--- NOTE | 2019-08-25 15:37 | PDOC TRANSFER SUMMARY ---
Impression - Admit/DC Date/PCP Admission Date/Primary Care Provider: 08/17/19 18:47 LISETTE VARGAS MD Discharge Date: 08/25/19 - Discharge Diagnosis (1) New onset atrial fibrillation Is this a current diagnosis for this admission?: Yes (2) ANJELICA (acute kidney injury) Is this a current diagnosis for this admission?: Yes (3) Acute systolic heart failure Is this a current diagnosis for this admission?: Yes (4) Cellulitis of right lower extremity Is this a current diagnosis for this admission?: Yes (5) SIRS (systemic inflammatory response syndrome) Is this a current diagnosis for this admission?: Yes (6) Hypoalbuminemia Is this a current diagnosis for this admission?: Yes (7) Hypotension Is this a current diagnosis for this admission?: Yes (8) Nausea vomiting and diarrhea Is this a current diagnosis for this admission?: Yes (9) Obesity (BMI 30.0-34.9) Is this a current diagnosis for this admission?: Yes (10) UTI (urinary tract infection) Is this a current diagnosis for this admission?: Yes (11) Hypocalcemia Is this a current diagnosis for this admission?: Yes (12) Hypokalemia Is this a current diagnosis for this admission?: Yes (13) Anemia in chronic illness Is this a current diagnosis for this admission?: Yes - Additional Information Resuscitation Status: Full Code Discharge Diet: Cardiac Discharge Activity: Activity As Tolerated, Balance Activity w/Rest, Weigh Daily Referrals: LISETTE VARGAS MD [Primary Care Provider] - 08/30/19 2:15 pm Home Medications: Levothyroxine Sodium [Synthroid] 137 mcg PO DAILY 07/14/17 Ferrous Sulfate [Feosol 325 mg Tablet] 325 mg PO MEALS tablet 07/24/17 Calcitriol [Rocaltrol 0.25 mcg Capsule] 0.25 mcg PO BID 08/18/19 Calcium Carbonate/Vitamin D3 [Oyster Shell 500-Vit D3 200 Tb] 2 tab PO BID 08/18 Ergocalciferol (Vitamin D2) [Drisdol 50,000 unit (1.25MG) Capsule] 50,000 unit PO [id number] 08/18/19 Hydrochlorothiazide [Hydrodiuril 12.5 mg Tablet] 12.5 mg PO DAILY 08/18/19 Losartan Potassium 50 mg PO DAILY 01/02/20 Magnesium Oxide [Magnesium] 250 mg PO DAILY 08/18/19 Aspirin [Aspirin 81 mg Chewable Tablet] 81 mg PO DAILY tab.chew 08/25/19 Calcium Carbonate/Vitamin D3 [Os-Adam 250 mg with Vitamin D 125 Units] 1 tab PO QAM tablet 08/25/19 Diltiazem HCl [Cardizem Cd 180 mg Capsule] 180 mg PO Q12 capsule.cr 08/25/19 Famotidine [Pepcid 20 mg Tablet] 20 mg PO Q12 tablet 08/25/19 Levofloxacin [Levaquin 500 mg Tablet] 500 mg PO DAILY 5 Days #5 tablet 08/25/19 Pantot AC/Min Oil/Pet Hy-Phl [Aquaphor W-[facility] Oint 50 gm] 1 applic TOP BID tube 08/25/19 Potassium Chloride [Klor-Con 10 Meq Tablet ER] 20 meq PO DAILY tablet.er 08/25/19 History of Present Illiness History of Present Illness: SCOOBY BLAKE is a 68 year old female who has a medical history of hypertension, thyroid cancer (post surgery and chemoradiation) as well as an extensive necrotic lesion on the left side of her head that she has not provided much information on. She has chronic lower extremity lymphedema with the right leg always larger than the left. She was brought to the hospital by a friend who states that she has been having nausea, vomiting and diarrhea for the last week. It has slowed down but they noticed the changes in her right lower extremity with marked inflammation, erythema and tenderness. The patient reported feeling weaker than usual and this has been progressive. She is also experienced increasing shortness of breath. The patient was found to be in atrial fibrillation with rapid ventricular response and had an elevated lactic acid, leukocytosis, elevated BNP and acute kidney injury. She was referred for the hospitalist service with A. fib and Sirs for admission and treatment Hospital Course Hospital Course: The patient has had a prolonged hospital course Sirs-due to cellulitis. Resolved with fluids, antibiotic therapy as well as getting control of her atrial fibrillation. Cellulitis-the patient has significant chronic lower extremity edema and likely recurrent stasis dermatitis. Legs have improved slightly with antibiotics. She should return to her compression therapy with her [place] wraps. Some of his discoloration is likely stasis dermatitis. Atrial fibrillation with rapid ventricular response-the patient was initially on diltiazem infusion. We have converted her to oral medications. She has done quite well. She is not anticoagulated as the fungating lesion on her head tends to bleed and anticoagulation would only make it worse. Acute systolic heart failure-the patient had an elevated BNP on admission. Echocardiogram revealed a normal ejection fraction but she does have pulmonary hypertension in the atrial fibrillation with rapid ventricular response. I feel these are significant contributors, as well as the acute kidney injury, to her heart failure. She has done well with diuresis and adjustments in medication. Hypoalbuminemia-likely due to chronic illness. This contributed to her edema along with the infection and systemic inflammatory response. This may improve with improved diet but it may not due to her chronic comorbidities. Evaluation by registered dietitian would be helpful. Acute kidney injury-due to Sirs as well as the hypotension from her atrial fibrillation. Renal function is back to normal. Hypocalcemia and hypokalemia have been corrected. Anemia in chronic disease is chronic and stable. Physical Exam Vital Signs: Temp Pulse Resp BP Pulse Ox 97.9 F 85 18 140/63 H 100 08/25/19 11:23 08/25/19 11:23 08/25/19 11:23 08/25/19 11:23 08/25/19 11:23 Intake & Output 08/24/19 08/25/19 08/26/19 06:59 06:59 06:59 Intake Total 1074 775 600 Output Total 1200 300 2 Balance -126 475 598 Weight 104.3 kg 103.3 kg General appearance: PRESENT: no acute distress, cooperative Respiratory exam: PRESENT: symmetrical, unlabored. ABSENT: rales, rhonchi, tachypnea, wheezes Cardiovascular exam: PRESENT: irregular rhythm GI/Abdominal exam: PRESENT: normal bowel sounds, soft. ABSENT: distended, tenderness Extremities exam: PRESENT: other - 3-4+ edema especially right lower leg. This is significantly larger than the left. No DVT was identified. Musculoskeletal exam: PRESENT: ambulatory - Limited but improving with physical therapy Neurological exam: PRESENT: alert, awake, oriented to person, oriented to place, oriented to time, oriented to situation Psychiatric exam: PRESENT: appropriate affect. ABSENT: agitated, anxious Skin exam: PRESENT: erythema - Lower legs likely chronic due to stasis dermatitis. Results Laboratory Results: WBC 6.0 10^3/uL (4.0-10.5) 08/25/19 05:45 RBC 3.49 10^6/uL (3.72-5.28) L 08/25/19 05:45 Hgb 9.6 g/dL (12.0-15.5) L 08/25/19 05:45 Hct 28.5 % (36.0-47.0) L 08/25/19 05:45 MCV 82 fl (80-97) 08/25/19 05:45 MCH 27.5 pg (27.0-33.4) 08/25/19 05:45 MCHC 33.6 g/dL (32.0-36.0) 08/25/19 05:45 RDW 16.3 % (11.5-14.0) H 08/25/19 05:45 Plt Count 320 10^3/uL (150-450) 08/25/19 05:45 Lymph % (Auto) Not Reportable 08/23/19 05:50 [place] % (Auto) Not Reportable 08/23/19 05:50 Eos % (Auto) Not Reportable 08/23/19 05:50 Baso % (Auto) Not Reportable 08/23/19 05:50 Absolute Neuts (auto) Not Reportable 08/23/19 05:50 Absolute Lymphs (auto) Not Reportable 08/23/19 05:50 Absolute Monos (auto) Not Reportable 08/23/19 05:50 Absolute Eos (auto) Not Reportable 08/23/19 05:50 Absolute Basos (auto) Not Reportable 08/23/19 05:50 Total Counted 100 08/23/19 05:50 Seg Neutrophils % Not Reportable 08/23/19 05:50 Seg Neuts % (Manual) 76 % (42-78) 08/23/19 05:50 Band Neutrophils % 1 % (3-5) L 08/19/19 05:53 Lymphocytes % (Manual) 9 % (13-45) L 08/23/19 05:50 Monocytes % (Manual) 8 % (3-13) 08/23/19 05:50 Eosinophils % (Manual) 5 % (0-6) 08/23/19 05:50 Basophils % (Manual) 2 % (0-2) 08/23/19 05:50 Abs Neuts (Manual) 5.2 10^3/uL (1.7-8.2) 08/23/19 05:50 Abs Lymphs (Manual) 0.6 10^3/uL (0.5-4.7) 08/23/19 05:50 Abs Monocytes (Manual) 0.6 10^3/uL (0.1-1.4) 08/23/19 05:50 Absolute Eos (Manual) 0.3 10^3/uL (0.0-0.6) 08/23/19 05:50 Abs Basophils (Manual) 0.1 10^3/uL (0.0-0.2) 08/23/19 05:50 Hypersegmented Neuts PRESENT 08/23/19 05:50 Toxic Granulation 1+ 08/22/19 05:15 Platelet Comment ADEQUATE 08/23/19 05:50 Poikilocytosis SLIGHT 08/23/19 05:50 Anisocytosis SLIGHT 08/23/19 05:50 Tear Drop Cells SLIGHT 08/22/19 05:15 Ovalocytes SLIGHT 08/23/19 05:50 PT 16.7 SEC (11.4-15.4) H 08/17/19 16:38 INR 1.35 08/17/19 16:38 VBG pH 7.46 (7.30-7.42) H 08/17/19 21:06 VBG pCO2 34.4 mmHg (35-63) L 08/17/19 21:06 VBG HCO3 24.1 mmol/L (20-32) 08/17/19 21:06 VBG Base Excess 0.7 mmol/L 08/17/19 21:06 Sodium 137.4 mmol/L (137-145) 08/25/19 05:45 Potassium 4.2 mmol/L (3.6-5.0) 08/25/19 05:45 Chloride 104 mmol/L (98-107) 08/25/19 05:45 Carbon Dioxide 28 mmol/L (22-30) 08/25/19 05:45 Anion Gap 5 (5-19) 08/25/19 05:45 BUN 20 mg/dL (7-20) 08/25/19 05:45 Creatinine 0.90 mg/dL (0.52-1.25) 08/25/19 05:45 Est GFR ( Amer) > 60 (>60) 08/25/19 05:45 Est GFR (MDRD) Non-Af > 60 (>60) 08/25/19 05:45 Glucose 88 mg/dL (75-110) 08/25/19 05:45 Hemoglobin A1c % 5.2 % (4.7-6.0) 08/18/19 04:00 Lactic Acid 1.2 mmol/L (0.7-2.1) 08/18/19 06:30 Calcium 7.7 mg/dL (8.4-10.2) L 08/25/19 05:45 Magnesium 1.9 mg/dL (1.6-2.3) 08/25/19 05:45 Total Bilirubin 0.4 mg/dL (0.2-1.3) 08/23/19 05:50 Direct Bilirubin 0.2 mg/dL (0.0-0.4) 08/23/19 05:50 Neonat Total Bilirubin Not Reportable 08/23/19 05:50 Neonat Direct Bilirubin Not Reportable 08/23/19 05:50 Neonat Indirect Bili Not Reportable 08/23/19 05:50 AST 24 U/L (14-36) 08/23/19 05:50 ALT 17 U/L (<35) 08/23/19 05:50 Alkaline Phosphatase 91 U/L (38-126) 08/23/19 05:50 Troponin I 0.067 ng/mL 08/17/19 16:38 NT-Pro-B Natriuret Pep 5180 pg/mL (<125) H 08/17/19 16:38 Total Protein 5.6 g/dL (6.3-8.2) L 08/23/19 05:50 Albumin 2.5 g/dL (3.5-5.0) L 08/23/19 05:50 Triglycerides 132 mg/dL (<150) 08/18/19 04:00 Cholesterol 94.60 mg/dL (0-200) 08/18/19 04:00 LDL Cholesterol Direct 42 mg/dL (<100) 08/18/19 04:00 VLDL Cholesterol 26.0 mg/dL (10-31) 08/18/19 04:00 HDL Cholesterol 17 mg/dL (>40) L 08/18/19 04:00 TSH 6.37 uIU/mL (0.47-4.68) H 01/01/20 16:38 Urine Color KARINA 08/17/19 17:19 Urine Appearance CLOUDY 08/17/19 17:19 Urine pH 5.0 (5.0-9.0) 08/17/19 17:19 Ur Specific [place] 1.021 08/17/19 17:19 Urine Protein 30 mg/dL (NEGATIVE) H 08/17/19 17:19 Urine Glucose (UA) NEGATIVE mg/dL (NEGATIVE) 08/17/19 17:19 Urine Ketones TRACE mg/dL (NEGATIVE) H 08/17/19 17:19 Urine Blood MODERATE (NEGATIVE) H 08/17/19 17:19 Urine Nitrite (Reflex) NEGATIVE (NEGATIVE) 08/17/19 17:19 Urine Bilirubin NEGATIVE (NEGATIVE) 08/17/19 17:19 Urine Urobilinogen 2.0 mg/dL (<2.0) H 08/17/19 17:19 Leukocyte Esterase Rfl LARGE (NEGATIVE) H 08/17/19 17:19 Urine RBC (Auto) 15 /HPF 08/17/19 17:19 U Hyaline Cast (Auto) 9 /LPF 08/17/19 17:19 Urine Bacteria (Auto) 3+ /HPF 08/17/19 17:19 Urine WBC (Reflex) 65 /HPF 08/17/19 17:19 Urine WBC Clumps MANY /HPF 08/17/19 17:19 Squamous Epi Cells Auto 2 /HPF 08/17/19 17:19 Urine Mucus (Auto) FEW /LPF 08/17/19 17:19 Urine Yeast (Budding) PRESENT /HPF 08/17/19 17:19 Urine Ascorbic Acid NEGATIVE (NEGATIVE) 08/17/19 17:19 08/17/19 08/17/19 16:38 16:38 Troponin I 0.067 NT-Pro-B Natriuret Pep 5180 H Impressions: Chest X-Ray 08/17/19 15:26 IMPRESSION: NO SIGNIFICANT RADIOGRAPHIC FINDING IN THE CHEST. Venous Doppler Study 08/18/19 00:00 IMPRESSION: Portions of distal right superficial femoral vein are not visualized.No DVT identified. Plan Health Concerns: Significant multiple comorbidities will require close scrutiny and management. The patient has not given up any details on the fungating lesion on her head. She does tells us that it is inoperable. Plan of Treatment: Patient has been accepted at [facility]. She will complete antibiotic therapy for her Klebsiella cystitis. She will need ongoing physical therapy as well. Time Spent: Greater than 30 Minutes Stroke Is this a Stroke Patient?: No Acute Heart Failure - Is this a Heart Failure Patient?: Yes Documentation of LVEF assessment?: Yes LVEF < 40%?: No- if no continue to question #3 3. Anticoagulant therapy for permanect/persistent/paraoxysmal Afib or Aflutter: No, document contraindications Reason(s) not discharged on anticoagulant therapy for permanect/persistent/paraoxysmal Afib or Aflutter: Risk for bleeding Follow-up Appointment scheduled within 7 days?: No, document reason - Transfer to senior living facility
[2019-08-25 15:41] VITALS: BP 138/57
== END 2019-08-25 18:52 | disposition home or self-care (01) | DRG 308 ==
LOC: ER 14:59 → EH 18:47 → 3W 21:55
PROVIDERS: ADMIT Internal Medicine; ATTEND Internal Medicine
PROC: 02HV33Z Insertion of Infusion Device into Superior Vena Cava, Percutaneous Approach (ICD-10-PCS; principal; 2019-08-17)
PROC: B548ZZA Ultrasonography of Superior Vena Cava, Guidance (ICD-10-PCS; 2019-08-17)
DX: I48.91 Unspecified atrial fibrillation (principal); I50.21 Acute systolic (congestive) heart failure; N17.9 Acute kidney failure, unspecified; L03.115 Cellulitis of right lower limb; N39.0 Urinary tract infection, site not specified; E78.5 Hyperlipidemia, unspecified; C44.329 Squamous cell carcinoma of skin of other parts of face; I11.0 Hypertensive heart disease with heart failure; D64.9 Anemia, unspecified; E89.0 Postprocedural hypothyroidism; E86.0 Dehydration; I87.2 Venous insufficiency (chronic) (peripheral); E83.51 Hypocalcemia; E88.09 Other disorders of plasma-protein metabolism, not elsewhere classified; E66.9 Obesity, unspecified; B96.1 Klebsiella pneumoniae [K. pneumoniae] as the cause of diseases classified elsewhere; E87.6 Hypokalemia; I27.20 Pulmonary hypertension, unspecified; Z92.21 Personal history of antineoplastic chemotherapy; Z83.3 Family history of diabetes mellitus; Z85.850 Personal history of malignant neoplasm of thyroid; Z79.899 Other long term (current) drug therapy; Z79.82 Long term (current) use of aspirin
CPT/HCPCS: 36415; 71045; 71046; 80048; 80053; 80061; 80202; 81001; 82803; 83036; 83605; 83735; 83880; 84443; 84484; 85025; 85027; 85610; 87040; 87086; 87088; 87186; 93005; 93010; 93306; 93971; 96365; 96368; 96376; 99291; C1751; J0360; J0692; J1160; J1642; J1644; J2543; J2550; J3370; J3490; J7030; J7060; J7614; P9047